=== PATIENT | female | born 1955 | race Caucasian/White ===

== ENCOUNTER → 2018-02-10 13:57 | Outpatient (CLI) | payer OTHER, SELFPAY ==
[2018-02-10 14:27] LABS: Hematocrit 41.7 % (36-46); Hemoglobin 14.3 g/dL (12.0-16.0); Mean Corpuscular HGB Conc 34.2 % (30-36); Mean Corpuscular Hemoglobin 28.8 PG (26-34); Mean Corpuscular Volume 84.1 fL (80-100); Platelet Count 313 X10^3/uL (150-400); Red Blood Cell Count 4.96 X10^6/uL (4.0-5.2); Red Cell Distribution Width 13.7 % (11.6-14.8); White Blood Cell Count 8.1 X10^3/uL (4.5-11.0)
[2018-02-10 15:06] LABS: Neutrophils Absolute Manual 3969 /uL (3000-5900); Total Cells Counted 100
[2018-02-12 13:43] LABS: Varicella IgG Antibody > 4000.00 Index (< 135.00)
[2018-02-12 13:54] LABS: HSV 1 IgM Screen Negative (Negative); HSV 2 IgM Screen Negative (Negative)
== END ==
PROVIDERS: PCP Family Medicine; Visit Provider Family Medicine
DX: B00.9 Herpesviral infection, unspecified (principal)
CPT/HCPCS: 36415; 85025; 86694; 86787

== ENCOUNTER → 2019-03-09 12:13 | Outpatient (CLI) | payer OTHER, SELFPAY ==
[2019-03-09 12:47] LABS: Hematocrit 41.2 % (36-46); Hemoglobin 13.8 g/dL (12.0-16.0); Mean Corpuscular HGB Conc 33.4 % (30-36); Mean Corpuscular Hemoglobin 28.5 PG (26-34); Mean Corpuscular Volume 85.4 fL (80-100); Platelet Count 320 X10^3/uL (150-400); Red Blood Cell Count 4.83 X10^6/uL (4.0-5.2); Red Cell Distribution Width 14.1 % (11.6-14.8); White Blood Cell Count 5.6 X10^3/uL (4.5-11.0)
[2019-03-09 13:02] LABS: Alanine Aminotransferase 42 IU/L (9-52); Albumin 4.3 g/dL (3.5-5.0); Albumin Globulin Ratio 1.4 (1.0-2.8); Alkaline Phosphatase 92 U/L (38-126); Aspartate Aminotransferase 39 IU/L (14-36); BUN Creatinine Ratio 14.4 (6-22); Bilirubin Total 0.6 mg/dL (0.2-1.3); Blood Urea Nitrogen 13 mg/dL (7-17); Carbon Dioxide 30 mmol/L (22-32); Chloride 100 mmol/L (98-107); Estimated Glomerular Filt Rate > 60.0 mL/min (>60); Globulin 3.1 g/dL (1.7-4.1); Glucose 88 mg/dL (80-110); HEMOLYSIS < 15 (0-50); Potassium 3.4 mmol/L (3.4-5.1); Sodium 140 mmol/L (137-145); Total Protein 7.4 g/dL (6.3-8.2)
[2019-03-09 13:47] LABS: TSH w/ Reflex to FT4 0.79 uIU/mL (0.47-4.68)
== END ==
PROVIDERS: PCP Family Medicine; Visit Provider Family Medicine
DX: E03.9 Hypothyroidism, unspecified (principal); I10 Essential (primary) hypertension
CPT/HCPCS: 36415; 80053; 84443; 85027

== ENCOUNTER → 2019-09-26 12:25 | Outpatient (CLI) | payer OTHER, SELFPAY | PROVIDERS: PCP Family Medicine; Visit Provider Family Medicine | DX: R30.0 Dysuria (principal) | CPT/HCPCS: 87077; 87086 ==

== ENCOUNTER → 2019-10-24 14:43 | Outpatient (CLI) | payer OTHER, SELFPAY ==
--- NOTE | 2019-10-24 | DI.US.S_ITS ---
PROCEDURE: US RENAL COMPLETE INDICATIONS: LEFT KIDNEY MASS TECHNIQUE: Real-time scanning was performed of the kidneys and bladder, with image documentation. COMPARISON: [facility], MR, L-SPINE WITHOUT CONTRAST, 05/19/2012, 18:23. Outside Facility, RG, CT ABDOMEN/PELVIS WITH CONTRAST, 07/02/2019, 14:16. FINDINGS: Kidneys: Kidneys are normal in size. Right kidney measures 10.4 cm long; left kidney measures 10.6 cm long. Right renal cortical thickness is 1.1 cm; left renal cortical thickness is 1.3 cm. Renal cortical echotexture is normal. No hydronephrosis or nephrolithiasis. No suspicious solid mass lesions are noted on the right but there is a solid appearing mass involving the left kidney cortex anterior in position at the middle third of the right kidney, measuring up to 3.5 x 2.0 by 3.3 cm. This mass was identified on prior CT scanning from [facility] 07/02/19. Bladder: Pre-void bladder volume is 293 mL. Post-void residual is 82 mL. Pre-void images demonstrate no intraluminal masses or stones. On pre-void images, bilateral ureteral jets are noted with color Doppler interrogation. (Of note, ureteral jets may not be detectable in up to 25% of cases due to insufficient differences in specific gravity between ureteral and bladder urine). Miscellaneous: No free pelvic fluid. IMPRESSION: 3.5 x 2.0 x 3.3 cm exophytic mass projecting from the middle third cortex of the left kidney, laterally. As noted, this was initially identified on CT scanning from mid June of last year, measured at that time as 3.2 x 1.7 cm. 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 Dictated by: Hugo Ralph M.D. on 10/24/2019 at 15:45 Approved by: Hugo Ralph M.D. on 10/24/2019 at 15:55
== END ==
PROVIDERS: PCP Family Medicine; Referring Provider Urology; Visit Provider Urology
DX: N28.89 Other specified disorders of kidney and ureter (principal)
CPT/HCPCS: 76770

== ENCOUNTER → 2019-11-21 12:52 | Outpatient (CLI) | payer OTHER, SELFPAY ==
[2019-11-21 16:11] LABS: BUN Creatinine Ratio 7.1 (6-22); Blood Urea Nitrogen 7 mg/dL (7-17); Calcium 8.2 mg/dL (8.4-10.2); Carbon Dioxide 29 mmol/L (22-32); Chloride 103 mmol/L (98-107); Estimated Glomerular Filt Rate 57.1 mL/min (>60); Glucose 91 mg/dL (80-110); HEMOLYSIS < 15 (0-50); Sodium 138 mmol/L (137-145)
== END ==
PROVIDERS: PCP Family Medicine; Referring Provider Family Medicine; Visit Provider Family Medicine
DX: N17.9 Acute kidney failure, unspecified (principal)
CPT/HCPCS: 36415; 80048

== ENCOUNTER 2019-11-23 17:24 | Emergency (ER) | payer OTHER, SELFPAY ==
[2019-11-23] VITALS (13 sets, daily range): BP systolic 127–162; BP diastolic 54–84; PULSE 90–110; RESP 14–30; TEMP 36.8–37.1; O2SAT 92–98; BMI 34.0
--- NOTE | 2019-11-23 17:26 | DI.RAD.S_ITS ---
PROCEDURE: XR CHEST 1V INDICATIONS: chest pain TECHNIQUE: One view of the chest was acquired. COMPARISON: Outside Facility, RG, CT ABDOMEN/PELVIS WITH CONTRAST, 07/02/2019, 14:16. [facility], CR, CHEST 2 VIEW, 04/01/2007, 15:46. FINDINGS: Surgical changes and devices: Amada cystectomy clips. Lungs and pleura: Low lung volumes. Lungs are clear. No pleural effusions or pneumothorax. Mediastinum: Mediastinal contours appear unchanged. Hiatal hernia. Heart size is normal. Bones and chest wall: No suspicious bony lesions. Overlying soft tissues appear unremarkable. IMPRESSION: Low lung volumes. No air space opacity identified. Consider 2 view repeat CXR if tolerated by the patient. Hiatal hernia. Dictated by: Hector Henriquez M.D. on 11/23/2019 at 18:05 Approved by: Hector Henriquez M.D. on 11/23/2019 at 18:07
[2019-11-23 17:45] LABS: Add Manual Diff / Slide Review NO; Basophils Absolute Auto 100 /uL (0-100); Basophils Percent Auto 1.4 % (0-2); Eosinophils Absolute Auto 100 /uL (0-450); Eosinophils Percent Auto 0.8 % (2-4); Hematocrit 30.7 % (36-46); Hemoglobin 10.2 g/dL (12.0-16.0); Lymphocytes Absolute Auto 1800 /uL (1100-4500); Mean Corpuscular HGB Conc 33.3 % (30-36); Mean Corpuscular Hemoglobin 28.3 PG (26-34); Mean Corpuscular Volume 85.1 fL (80-100); Monocytes Absolute Auto 800 /uL (0-900); Monocytes Percent Auto 7.8 % (3-14); Neutrophils Absolute Auto 7800 /uL (1500-7000); Platelet Count 684 X10^3/uL (150-400); Red Blood Cell Count 3.61 X10^6/uL (4.0-5.2); Red Cell Distribution Width 13.7 % (11.6-14.8); White Blood Cell Count 10.7 X10^3/uL (4.5-11.0)
[2019-11-23 17:56] LABS: INR 1.2 (0.9-1.3); Prothrombin Time 13.3 SECONDS (10.1-12.7)
[2019-11-23 17:59] LABS: PTT Partial Thromboplastin Tim 30 SECONDS (26.4-36.2)
[2019-11-23 18:00] LABS: Alanine Aminotransferase 15 IU/L (<35); Albumin 3.8 g/dL (3.5-5.0); Albumin Globulin Ratio 1.1 (1.0-2.8); Alkaline Phosphatase 88 U/L (38-126); Aspartate Aminotransferase 23 IU/L (14-36); BUN Creatinine Ratio 9.5 (6-22); Bilirubin Total 0.4 mg/dL (0.2-1.3); Blood Urea Nitrogen 11 mg/dL (7-17); Calcium 8.7 mg/dL (8.4-10.2); Carbon Dioxide 30 mmol/L (22-32); Chloride 102 mmol/L (98-107); Creatine Kinase 42 U/L (30-135); Globulin 3.6 g/dL (1.7-4.1); Glucose 103 mg/dL (80-110); HEMOLYSIS < 15 (0-50); Lipase 108 U/L (23-300); Potassium 3.7 mmol/L (3.4-5.1); Sodium 140 mmol/L (137-145); Total Protein 7.4 g/dL (6.3-8.2)
--- NOTE | 2019-11-23 18:00 | ED_ITS ---
HPI - Chest Pain General Chief Complaint: Chest Pain Stated Complaint: CHEST PAIN Time Seen by Provider: 11/23/19 17:35 Source: patient Mode of arrival: Wheelchair Limitations: no limitations History of Present Illness HPI narrative: 64-year-old female nonsmoker with history of hypertension, hypothyroid, recent hospitalization for urosepsis presents with a chief complaint of sudden onset left-sided chest pain with radiation to her back, neck and jaw that started earlier today. She states that it seems like it may be worse with deep breath or cough but denies any exertional change. She has no associated symptoms such as dizziness, weakness or lightheadedness. She has had no runny nose, sore throat or cough. MD complaint: chest pain Onset (ago): hour(s) Duration: constant Onset: during rest Pain location: left chest Severity: moderate Quality: sharp Pain radiation: back, neck and jaw/teeth Relieving factors: nothing Exacerbating factors: inspiration Treatments prior to arrival chest pain: none Related Data On Oral Contraceptives: No Previous Rx's Medication Instructions Recorded levothyroxine 75 mcg tablet 75 mcg PO DAILY #90 tab 04/03/19 losartan 100 1 tab PO QDAY #90 tab 05/05/19 mg-hydrochlorothiazide 25 mg tablet valacyclovir 1 gram tablet See Rx Instructions .ROUTE 09/27/19 .COMPLEX #90 tab cyclobenzaprine 10 mg tablet See Rx Instructions .ROUTE 09/28/19 .COMPLEX #30 tablet pregabalin 150 mg capsule See Rx Instructions .ROUTE 10/31/19 .COMPLEX #90 capsule zolpidem 10 mg tablet See Rx Instructions .ROUTE 10/31/19 .COMPLEX #30 tablet furosemide 40 mg tablet 40 mg PO DAILY #30 tab 11/21/19 potassium chloride 20 mEq 20 meq PO BID #60 tab 11/23/19 tablet,extended release Allergies Allergy/AdvReac Type Severity Reaction Status Date / Time morphine [MORPHINE] Allergy Severe ANAPHYLAXIS Verified 11/23/19 17:32 adhesive tape [ADHESIVE TAPE] Allergy Mild PAPER TAPE Verified 11/23/19 17:32 OK- RASH Sulfa (Sulfonamide Allergy Mild RASH/RED Verified 11/23/19 17:32 Antibiotics) FACE/MOUTH [SULFA (SULFONAMIDE BLISTERS ANTIBIOTICS)] topiramate [From TOPAMAX] Allergy Mild Verified 11/23/19 17:32 ondansetron [From Zofran] AdvReac Verified 11/23/19 23:10 Review of Systems Constitutional Constitutional: Denies chills, Denies fatigue, Denies fever(s), Denies frequent falls, Denies lethargy and Denies weakness Eyes Eyes: Denies change in vision, Denies eye discharge, Denies irritation and Denies loss of vision ENT Ears, Nose, Mouth, and Throat: Denies change in voice, Denies dizziness, Denies neck pain, Denies sore throat and Denies throat swelling Cardiovascular Cardiovascular: Reports chest pain, Denies irregular heart rhythm, Denies lightheadedness, Denies palpitations, Denies dyspnea, Denies dyspnea on exertion and Denies orthopnea Respiratory Respiratory: Denies cough, Denies dyspnea, Denies dyspnea on exertion and Denies wheezing Gastrointestinal Gastrointestinal: Denies abdominal pain, Denies change in bowel habits, Denies diarrhea, Denies nausea and Denies vomiting Genitourinary Genitourinary: Denies hematuria, Denies flank pain, Denies urinary incontinence and Denies urinary urgency Musculoskeletal Musculoskeletal: Denies back pain, Denies muscle weakness, Denies neck pain, Denies numbness and Denies tingling Integumentary/Breasts Skin/Breast: Denies pruritus, Denies erythema, Denies rash and Denies wounds Neurologic Neurologic: Denies behavioral changes, Denies confusion, Denies dizziness, Denies frequent falls, Denies loss of vision, Denies numbness, Denies tingling and Denies weakness Psychiatric Psychiatric: Denies anxiety, Denies behavioral changes, Denies confusion, Denies depression, Denies homicidal ideation and Denies suicidal ideation Endocrine Endocrine: Denies fatigue, Denies flushing and Denies palpitations Hematologic/Lymphatic Hematologic/Lymphatic: Denies easy bruising Allergic/Immunologic Allergic/Immunologic: Denies urticaria, Denies throat swelling and Denies wheezing Patient History Medical History Sepsis (Acute) Social History Smoking Status: Never smoker Smoking Status: Never smoker alcohol intake frequency: holidays/special occasions only Substance Use Type: does not use Exam Narrative Exam Narrative: GENERAL: [64] year old patient appears stated age. Well- nourished, well-developed patient, in mild distress. HEAD: Atraumatic. Normocephalic. EYES: Pupils equal round and reactive. Extraocular motions intact. No scleral icterus. No injection or drainage. ENT: Nose without bleeding, purulent drainage. Throat without erythema, tonsillar hypertrophy or exudate. Airway patent. NECK: Trachea midline. Non tender CARDIOVASCULAR: Regular rate and rhythm without murmurs, gallops, or rubs. RESPIRATORY: Clear to auscultation. Breath sounds equal bilaterally. No wheezes, rales, or rhonchi. GASTROINTESTINAL: Abdomen soft, non-tender, nondistended. EXTREMITIES: No edema or joint tenderness. BACK: Nontender without deformity or crepitance. No flank tenderness. NEURO: AOx3. SKIN: No rash or erythema of visible areas Initial Vital Signs Initial Vital Signs: Vital Signs Temperature 98.8 F 11/23/19 17:32 Pulse Rate 99 H 11/23/19 17:32 Respiratory Rate 14 11/23/19 17:32 Blood Pressure 161/84 H 11/23/19 17:32 Pulse Oximetry 98 11/23/19 17:32 Course Orders Ordered: ED Orders 11/23/19 22:58 Hemoglobin and Hematocrit Stat Discontinued Medications Nicardipine HCl 25 mg/ Sodium (Chloride) 250 mls @ 50 mls/hr IV TITRATE DULCE; Protocol Last Titration: 11/24/19 01:43 Dose: 5 mg/hr, 50 mls/hr Documented by: Titration: 11/23/19 23:24 Dose: 5 mg/hr, 50 mls/hr Documented by: Titration: 11/23/19 22:56 Dose: 7.5 mg/hr, 75 mls/hr Documented by: Admin: 11/23/19 22:26 Dose: 5 mg/hr, 50 mls/hr Documented by: DINA Lorazepam (Ativan) 0.5 mg IV NOW ONE Stop: 11/24/19 01:26 Last Admin: 11/24/19 01:31 Dose: 0.5 mg Documented by: DINA Metoclopramide HCl (Reglan) 10 mg IV NOW ONE Stop: 11/23/19 22:57 Last Admin: 11/23/19 23:04 Dose: 10 mg Documented by: DINA Octreotide Acetate (Sandostatin) 50 mcg IV NOW ONE Stop: 11/23/19 22:41 Last Admin: 11/23/19 22:52 Dose: 50 mcg Documented by: DINA Pantoprazole Sodium (Protonix) 40 mg IV NOW ONE Stop: 11/23/19 22:07 Last Admin: 11/23/19 22:27 Dose: 40 mg Documented by: DINA Reevaluation(s) Reevaluation #1: patient passes a small stool, dark and tarry. Heme + consistent with upper GI bleed Consultations Consultation #1: initial call after receipt of CT to Hepatology at /[facility] and Dr. Wills. NOt likely to need Hep, recommends discussion with Vascular second call to vascular lactation coordinator at [facility] (Bala). She has viewed images as well as discussed with their in house radiology and concern is for a vasculitis with need for further evaluation call to [facility] (Luis M) whom is happy to accept. No new requests. Vital Signs Vital signs: Vital Signs - 8 hr 11/23/19 21:00 11/23/19 21:30 11/23/19 22:00 Temperature Pulse Rate 90 90 95 H Respiratory Rate 17 20 16 Blood Pressure Blood Pressure [Left Arm] 143/73 H 161/72 H 159/74 H Pulse Oximetry 96 95 96 11/23/19 22:30 11/23/19 23:00 11/23/19 23:50 Temperature 98.3 F Pulse Rate 95 H 99 H 110 H Respiratory Rate 20 18 16 Blood Pressure Blood Pressure [Left Arm] 156/72 H 127/54 L 131/72 Pulse Oximetry 96 97 97 11/24/19 00:32 11/24/19 01:32 Temperature 98.3 F Pulse Rate 110 H 108 H Respiratory Rate 16 16 Blood Pressure 111/83 Blood Pressure [Left Arm] 124/69 Pulse Oximetry 97 97 MDM - Chest Pain Lab Data Result diagrams: 11/23/19 22:58 11/23/19 17:30 Labs: Lab Results 11/23/19 11/23/19 11/23/19 Range/Units 17:30 17:30 17:30 WBC 10.7 (4.5-11.0) X10^3/uL RBC 3.61 L (4.0-5.2) X10^6/uL Hgb 10.2 L (12.0-16.0) g/dL Hct 30.7 L (36-46) % MCV 85.1 (80-100) fL MCH 28.3 (26-34) PG MCHC 33.3 (30-36) % RDW 13.7 (11.6-14.8) % Plt Count 684 H (150-400) X10^3/uL Neut % (Auto) 73.0 (50-75) % Lymph % (Auto) 17.0 L (25-40) % [place] % (Auto) 7.8 (3-14) % Eos % (Auto) 0.8 L (2-4) % Baso % (Auto) 1.4 (0-2) % Neut # (Auto) 7800 H (5423-7936) /uL Lymph # (Auto) 1800 (9578-4722) /uL [place] # (Auto) 800 (0-900) /uL Eos # (Auto) 100 (0-450) /uL Baso # (Auto) 100 (0-100) /uL ESR (0-20) MM/HR PT 13.3 H (10.1-12.7) SECONDS INR 1.2 (0.9-1.3) APTT 30 (26.4-36.2) SECONDS Sodium 140 (137-145) mmol/L Potassium 3.7 (3.4-5.1) mmol/L Chloride 102 (98-107) mmol/L Carbon Dioxide 30 (22-32) mmol/L BUN 11 (7-17) mg/dL Creatinine 1.16 H (0.52-1.04) mg/dL Estimated GFR 47.0 L (>60) mL/min BUN/Creatinine Ratio 9.5 (6-22) Glucose 103 (80-110) mg/dL Calcium 8.7 (8.4-10.2) mg/dL Total Bilirubin 0.4 (0.2-1.3) mg/dL AST 23 (14-36) IU/L ALT 15 (<35) IU/L Alkaline Phosphatase 88 (38-126) U/L Total Creatine Kinase 42 (30-135) U/L CK-MB (CK-2) TNP CK-MB (CK-2) Rel Index TNP Troponin I < 0.012 (0.01-0.034) ng/mL C-Reactive Protein (<1.0) mg/dL Total Protein 7.4 (6.3-8.2) g/dL Albumin 3.8 (3.5-5.0) g/dL Globulin 3.6 (1.7-4.1) g/dL Albumin/Globulin Ratio 1.1 (1.0-2.8) Lipase 108 (23-300) U/L Urine RBC (0-5/HPF) Urine WBC (0-5/HPF) Ur Squamous Epith Cells (0-5/HPF) Ur Transition Epith Cell (0-5/HPF) Urine Bacteria (None) Ur Culture Indicated? COVID-19 PCR (Negative) 11/23/19 11/23/19 11/23/19 Range/Units 17:30 17:30 18:00 WBC (4.5-11.0) X10^3/uL RBC (4.0-5.2) X10^6/uL Hgb (12.0-16.0) g/dL Hct (36-46) % MCV (80-100) fL MCH (26-34) PG MCHC (30-36) % RDW (11.6-14.8) % Plt Count (150-400) X10^3/uL Neut % (Auto) (50-75) % Lymph % (Auto) (25-40) % [place] % (Auto) (3-14) % Eos % (Auto) (2-4) % Baso % (Auto) (0-2) % Neut # (Auto) (8634-1738) /uL Lymph # (Auto) (5987-2434) /uL [place] # (Auto) (0-900) /uL Eos # (Auto) (0-450) /uL Baso # (Auto) (0-100) /uL ESR 69 H (0-20) MM/HR PT (10.1-12.7) SECONDS INR (0.9-1.3) APTT (26.4-36.2) SECONDS Sodium (137-145) mmol/L Potassium (3.4-5.1) mmol/L Chloride (98-107) mmol/L Carbon Dioxide (22-32) mmol/L BUN (7-17) mg/dL Creatinine (0.52-1.04) mg/dL Estimated GFR (>60) mL/min BUN/Creatinine Ratio (6-22) Glucose (80-110) mg/dL Calcium (8.4-10.2) mg/dL Total Bilirubin (0.2-1.3) mg/dL AST (14-36) IU/L ALT (<35) IU/L Alkaline Phosphatase (38-126) U/L Total Creatine Kinase (30-135) U/L CK-MB (CK-2) CK-MB (CK-2) Rel Index Troponin I (0.01-0.034) ng/mL C-Reactive Protein 5.3 H (<1.0) mg/dL Total Protein (6.3-8.2) g/dL Albumin (3.5-5.0) g/dL Globulin (1.7-4.1) g/dL Albumin/Globulin Ratio (1.0-2.8) Lipase (23-300) U/L Urine RBC 0-1/hpf (0-5/HPF) Urine WBC 0-1/hpf (0-5/HPF) Ur Squamous Epith Cells 1-5 /hpf (0-5/HPF) Ur Transition Epith Cell 0-1/hpf (0-5/HPF) Urine Bacteria None seen (None) Ur Culture Indicated? Cult not indicated COVID-19 PCR (Negative) 11/23/19 11/23/19 Range/Units 18:50 22:58 WBC (4.5-11.0) X10^3/uL RBC (4.0-5.2) X10^6/uL Hgb 9.9 L (12.0-16.0) g/dL Hct 29.7 L (36-46) % MCV (80-100) fL MCH (26-34) PG MCHC (30-36) % RDW (11.6-14.8) % Plt Count (150-400) X10^3/uL Neut % (Auto) (50-75) % Lymph % (Auto) (25-40) % [place] % (Auto) (3-14) % Eos % (Auto) (2-4) % Baso % (Auto) (0-2) % Neut # (Auto) (2042-9469) /uL Lymph # (Auto) (1105-6098) /uL [place] # (Auto) (0-900) /uL Eos # (Auto) (0-450) /uL Baso # (Auto) (0-100) /uL ESR (0-20) MM/HR PT (10.1-12.7) SECONDS INR (0.9-1.3) APTT (26.4-36.2) SECONDS Sodium (137-145) mmol/L Potassium (3.4-5.1) mmol/L Chloride (98-107) mmol/L Carbon Dioxide (22-32) mmol/L BUN (7-17) mg/dL Creatinine (0.52-1.04) mg/dL Estimated GFR (>60) mL/min BUN/Creatinine Ratio (6-22) Glucose (80-110) mg/dL Calcium (8.4-10.2) mg/dL Total Bilirubin (0.2-1.3) mg/dL AST (14-36) IU/L ALT (<35) IU/L Alkaline Phosphatase (38-126) U/L Total Creatine Kinase (30-135) U/L CK-MB (CK-2) CK-MB (CK-2) Rel Index Troponin I (0.01-0.034) ng/mL C-Reactive Protein (<1.0) mg/dL Total Protein (6.3-8.2) g/dL Albumin (3.5-5.0) g/dL Globulin (1.7-4.1) g/dL Albumin/Globulin Ratio (1.0-2.8) Lipase (23-300) U/L Urine RBC (0-5/HPF) Urine WBC (0-5/HPF) Ur Squamous Epith Cells (0-5/HPF) Ur Transition Epith Cell (0-5/HPF) Urine Bacteria (None) Ur Culture Indicated? COVID-19 PCR Negative (Negative) Point of Care Testing Stool Occult Blood Positive Urine Dip Bedside Urine Bilirubin - Negative Bedside Urine Ketone - Negative Urine Specific [place] 1.010 Bedside Urine Occult Blood - Negative Bedside Urine pH 7.5 Bedside Urine Protein - Negative Bedside Urine Urobilinogen - Negative Bedside Urine Nitrite - Negative Bedside Urine Leukocytes - Negative Esterase Imaging Data CT scan - abdomen/pelvis: Radiologist's Impression: Chart Viewer Diagnostics DATE TYPE STATUS AUTHOR Jose J 11/23/19 18:17 Call,Hector 11/23/19 17:26 Call,Hector 11/14/19 09:46 [facility], CT Abdomen/Pelvis 11/13/19 09:23 xr chest 1 view 11/11/19 09:22 xr chest 1 view 11/10/19 12:00 [facility], Chest XR 11/10/19 12:00 [facility], CT Chest 11/10/19 12:00 [facility], CT Head 11/10/19 12:00 [facility], CT Cervical Spine 10/24/19 00:00 RamoLucinda Ovalle 64, F0 1955 [facility], [facility] ED R01 154.94cm 81.647kg BMI: 34.0kg/m? Chest Pain Search Chart No Data to Display ANAPHYLAXIS PAPER TAPE OK- RASH RASH/RED FACE/MOUTH BLISTERS ONSET 10/05/11 10/05/11 10/05/11 11/09/17 Today 23:50 Lucinda Cortez 64 F 1955 [place] [address] CT Scan Report Signed Patient: Lucinda Cortez MMR#: [id number] : 5Acct:[id number] Age/Sex: 64 / FDate of Service: 11/23/19 Loc: ED Accession Number: [id number] Procedure: CT angio chest abdomen pelvis Ordering Provider: Ori Francis D.O. PROCEDURE: CT ANGIO CHEST ABDOMEN PELVIS INDICATIONS: tearing chest pain, radiation to back and neck TECHNIQUE: Precontrast 5 mm thick sections acquired from the lung apices to the iliac crests. After the administration of intravenous contrast, 2.5 mm thick sections again acquired from the lung apices to the iliac crests. Maximum intensity projection (MIP) oblique sagittal and coronal reformats were then acquired. For radiation dose reduction, the following was used: automated exposure control. COMPARISON: None. FINDINGS: Image quality: Excellent. Vasculature: No acute aortic syndrome. No aortic dissection. Medialization of the bilateral common carotid bruits. Left common prior artery originates off of the brachycephalic artery, variant. No central pulmonary embolism. No abdominal aortic aneurysm. No abdominal aortic dissection. There is new beaded irregularity of the common hepatic artery with severe stenosis, (). There is stranding surrounding this segment. Central intrahepatic renal arteries appear patent. Opacification of the portal vein appears within normal limits accounting for contrast bolus timing. The portal vein evaluation is limited. Renal arteries appear normal. Celiac, SMA, MAY are normal in appearance. CHEST: Lungs and pleura: Bibasilar compressive atelectasis. Punctate pulmonary nodule in the right lower lobe superior segment, (625). Small bilateral pleural effusions. No pneumothorax. pneumothorax. Central and peripheral airways are patent and normal in caliber. Mediastinum: Heart size is normal. No pericardial effusion. No mediastinal or hilar adenopathy by size criteria. Central pulmonary arteries are normal in size. Esophagus is normal in caliber. Moderate-sized paraesophageal hernia unchanged. Bones and chest wall: No axillary adenopathy by size criteria. Cyst in the right breast measuring a 2.3 cm, (5/50). Thyroid gland is unremarkable. No suspicious bony lesions. No vertebral body compression fractures. ABDOMEN: Solid organs: Liver is normal in size and enhancement. Gallbladder is surgically absent. Biliary system is non dilated. Pancreas enhances normally. Spleen is normal in size and enhancement. No adrenal nodules. Both kidneys are normal in size. No hydronephrosis. The left mid kidney enhancing mass measuring 3.6 x 2.7 cm, (5/109), previously 3.1 x 2.5 cm. Peritoneum and bowel: No free fluid or air. Bowel loops are normal in caliber and wall thickness. Nodes and vessels: No retroperitoneal or mesenteric adenopathy by size criteria. Inferior vena cava is normal in morphology. Miscellaneous: Small fat-containing left periumbilical hernia. PELVIS: Genitourinary: Bladder wall thickness is normal. Uterus is surgically absent. Miscellaneous: No inguinal hernias or adenopathy. No ventral hernias. Bones: No suspicious bony lesions. No vertebral body compression fractures. Right SI joint and screw fixation. IMPRESSION: 1. New abnormal beaded appearance and stenosis with surrounding fat stranding about the common hepatic artery. Primary diagnostic considerations include fibromuscular dysplasia and vasculitis or mycotic aneurysm. 2. No aortic dissection. 3. Small bilateral pleural effusions. 4. Left renal mass measuring 3.6 cm is slightly increased in size and most compatible with a renal cell carcinoma. 5. Cyst in the left breast. Recommend correlation with prior her breast imaging. Comment: Findings were discussed with Ori Francis at the time of dictation. Dictated by: Hector Henriquez M.D. on 11/23/2019 at 19:30 Approved by: Hector Henriquez M.D. on 11/23/2019 at 19:54 Critical Care Time Critical Care Time Critical Care Time: Yes Total Critical Care Time: 45 Attestation: The high probability of a clinically significant, sudden or life threatening deterioration of the [CV] system(s) required my full and direct attention, intervention and personal management. The aggregate critical care time was [45] minutes. This time is in addition to time spent performing reported procedures but includes the following: [x] Data Review and interpretation [x] Patient assessment and monitoring of vital signs x Documentation [x] Medication orders and management Discharge Plan Departure Patient Disposition: [facility] Clinical Impression: Hepatic artery stenosis, Vasculitis, Acute upper gastrointestinal bleeding Discharge Date/Time: 11/24/19 01:32 Prescriptions: No Action furosemide 40 mg tablet 40 mg PO DAILY Qty: 30 RF: 0 levothyroxine 75 mcg tablet 75 mcg PO DAILY Qty: 90 RF: 3 losartan-hydrochlorothiazide [Hyzaar] 100-25 mg tablet 1 tab PO QDAY Qty: 90 RF: 3 valacyclovir 1 gram tablet See Rx Instructions .ROUTE .COMPLEX Qty: 90 RF: 3 cyclobenzaprine 10 mg tablet See Rx Instructions .ROUTE .COMPLEX Qty: 30 RF: 1 zolpidem 10 mg tablet See Rx Instructions .ROUTE .COMPLEX Qty: 30 RF: 0 pregabalin [Lyrica] 150 mg capsule See Rx Instructions .ROUTE .COMPLEX Qty: 90 RF: 3 potassium chloride 20 mEq tablet extended release 20 meq PO BID Qty: 60 RF: 1 Referrals: Kam Farr MD [Primary Care Provider] -
[2019-11-23 18:12] LABS: Troponin I < 0.012 ng/mL (0.01-0.034)
[2019-11-23 18:13] LABS: Bacteria Urine None Seen
--- NOTE | 2019-11-23 18:17 | DI.CT.S_ITS ---
PROCEDURE: CT ANGIO CHEST ABDOMEN PELVIS INDICATIONS: tearing chest pain, radiation to back and neck TECHNIQUE: Precontrast 5 mm thick sections acquired from the lung apices to the iliac crests. After the administration of intravenous contrast, 2.5 mm thick sections again acquired from the lung apices to the iliac crests. Maximum intensity projection (MIP) oblique sagittal and coronal reformats were then acquired. For radiation dose reduction, the following was used: automated exposure control. COMPARISON: None. FINDINGS: Image quality: Excellent. Vasculature: No acute aortic syndrome. No aortic dissection. Medialization of the bilateral common carotid bruits. Left common prior artery originates off of the brachycephalic artery, variant. No central pulmonary embolism. No abdominal aortic aneurysm. No abdominal aortic dissection. There is new beaded irregularity of the common hepatic artery with severe stenosis, (). There is stranding surrounding this segment. Central intrahepatic renal arteries appear patent. Opacification of the portal vein appears within normal limits accounting for contrast bolus timing. The portal vein evaluation is limited. Renal arteries appear normal. Celiac, SMA, MAY are normal in appearance. CHEST: Lungs and pleura: Bibasilar compressive atelectasis. Punctate pulmonary nodule in the right lower lobe superior segment, (625). Small bilateral pleural effusions. No pneumothorax. pneumothorax. Central and peripheral airways are patent and normal in caliber. Mediastinum: Heart size is normal. No pericardial effusion. No mediastinal or hilar adenopathy by size criteria. Central pulmonary arteries are normal in size. Esophagus is normal in caliber. Moderate-sized paraesophageal hernia unchanged. Bones and chest wall: No axillary adenopathy by size criteria. Cyst in the right breast measuring a 2.3 cm, (5/50). Thyroid gland is unremarkable. No suspicious bony lesions. No vertebral body compression fractures. ABDOMEN: Solid organs: Liver is normal in size and enhancement. Gallbladder is surgically absent. Biliary system is non dilated. Pancreas enhances normally. Spleen is normal in size and enhancement. No adrenal nodules. Both kidneys are normal in size. No hydronephrosis. The left mid kidney enhancing mass measuring 3.6 x 2.7 cm, (5/109), previously 3.1 x 2.5 cm. Peritoneum and bowel: No free fluid or air. Bowel loops are normal in caliber and wall thickness. Nodes and vessels: No retroperitoneal or mesenteric adenopathy by size criteria. Inferior vena cava is normal in morphology. Miscellaneous: Small fat-containing left periumbilical hernia. PELVIS: Genitourinary: Bladder wall thickness is normal. Uterus is surgically absent. Miscellaneous: No inguinal hernias or adenopathy. No ventral hernias. Bones: No suspicious bony lesions. No vertebral body compression fractures. Right SI joint and screw fixation. IMPRESSION: 1. New abnormal beaded appearance and stenosis with surrounding fat stranding about the common hepatic artery. Primary diagnostic considerations include fibromuscular dysplasia and vasculitis or mycotic aneurysm. 2. No aortic dissection. 3. Small bilateral pleural effusions. 4. Left renal mass measuring 3.6 cm is slightly increased in size and most compatible with a renal cell carcinoma. 5. Cyst in the left breast. Recommend correlation with prior her breast imaging. Comment: Findings were discussed with Ori Francis at the time of dictation. Dictated by: Hector Henriquez M.D. on 11/23/2019 at 19:30 Approved by: Hector Henriquez M.D. on 11/23/2019 at 19:54
[2019-11-23 18:23] LABS: RBC Urine 0-1/HPF (0-5/HPF); Squamous Epithelial Cell Urine 1-5 /HPF (0-5/HPF); Transitional Epi Cells Urine 0-1/HPF (0-5/HPF); WBC Urine 0-1/HPF (0-5/HPF)
[2019-11-23 18:24] LABS: Culture Indicated Urine Cult Not Indicated
[2019-11-23 21:07] LABS: C-Reactive Protein Quant 5.3 mg/dL (<1.0)
[2019-11-23 21:24] LABS: Erythrocyte Sedimentation Rate 69 MM/HR (0-20)
[2019-11-23] MEDS: NICARDIPINE 25 MG in SODIUM CHLORIDE 0.9% 240 ML 50 ML IV (22:26)
[2019-11-23] MEDS: PANTOPRAZOLE 40 MG VIAL IV (22:27)
[2019-11-23] MEDS: OCTREOTIDE 100 MCG/ML VIAL 50 MCG IV (22:52)
--- NOTE | 2019-11-23 23:03 | PC.NURSE ---
Pt nauseated. emesis bag given. verbal order for reglan 10mg. pt desat to 86 RA with adequate pleth. placed on 2L NC with improvement to 97%. aware
[2019-11-23] MEDS: METOCLOPRAMIDE 10 MG/2 ML INJ IV (23:04)
[2019-11-23 23:07] LABS: Hematocrit 29.7 % (36-46); Hemoglobin 9.9 g/dL (12.0-16.0)
[2019-11-24 00:17] LABS: COVID19 -Nasal RAPID Negative (Negative)
[2019-11-24 00:32] VITALS: BP 124/69; PULSE 110; RESP 16; O2SAT 97
[2019-11-24] MEDS: LORazepam 2 MG/ML INJ 0.5 MG IV (01:31)
[2019-11-24 01:32] VITALS: BP 111/83; PULSE 108; RESP 16; TEMP 36.8; O2SAT 97
== END 2019-11-24 01:32 | disposition short-term general hospital (02) ==
PROVIDERS: Emergency Medicine; Emergency Provider Emergency Medicine; PCP Family Medicine
DX: I77.1 Stricture of artery (principal); I77.6 Arteritis, unspecified; K92.2 Gastrointestinal hemorrhage, unspecified; I10 Essential (primary) hypertension; E03.9 Hypothyroidism, unspecified
CPT/HCPCS: 36415; 71045; 71275; 74174; 80053; 81003; 81015; 82272; 82550; 83690; 84484; 85014; 85018; 85025; 85610; 85651; 85730; 86140; 87635; 93005; 96365; 96366; 96375; 99285; 99291; C9113; J2060; J2354; J2765

== ENCOUNTER → 2019-12-05 10:44 | Outpatient (CLI) | payer OTHER, SELFPAY ==
[2019-12-05 12:10] LABS: BUN Creatinine Ratio 11.5 (6-22); Blood Urea Nitrogen 12 mg/dL (7-17); Calcium 9.1 mg/dL (8.4-10.2); Carbon Dioxide 26 mmol/L (22-32); Chloride 104 mmol/L (98-107); Estimated Glomerular Filt Rate 53.3 mL/min (>60); Glucose 96 mg/dL (80-110); HEMOLYSIS < 15 (0-50); Potassium 3.7 mmol/L (3.4-5.1); Sodium 140 mmol/L (137-145)
[2019-12-05 12:30] LABS: Appearance Urine UA CLEAR; Bilirubin Urine UA NEGATIVE (NEGATIVE); Color Urine UA YELLOW; Glucose Urine UA NEGATIVE (Negative); Ketones Urine UA NEGATIVE (NEGATIVE); Leukocyte Esterase Urine UA 1+ (NEGATIVE); Nitrite Urine UA NEGATIVE (Negative); Occult Blood Urine UA TRACE-LYSED (Negative); Protein Urine UA NEGATIVE (Negative); Specific Gravity Urine UA <=1.005 (1.000-1.035); Urobilinogen Urine UA 0.2 E.U./dL (0.2)
[2019-12-05 12:32] LABS: pH Urine UA 5.5 (4.5-8.0)
[2019-12-05 12:34] LABS: RBC Urine None Seen (0-5/HPF)
[2019-12-05 12:54] LABS: Bacteria Urine Occasional (0-1); Squamous Epithelial Cell Urine 0-1 /HPF (0-5/HPF); WBC Urine 10-30/HPF (0-5/HPF)
[2019-12-05 12:55] LABS: Culture Indicated Urine Specimen Cultured
== END ==
PROVIDERS: PCP Family Medicine; Referring Provider Family Medicine; Visit Provider Family Medicine
DX: R30.0 Dysuria (principal); E87.6 Hypokalemia
CPT/HCPCS: 36415; 80048; 81003; 81015; 87086

== ENCOUNTER → 2019-12-12 16:05 | Outpatient (CLI) | payer OTHER, SELFPAY ==
[2019-12-12 16:33] LABS: Appearance Urine UA CLEAR; Bilirubin Urine UA NEGATIVE (NEGATIVE); Color Urine UA YELLOW; Glucose Urine UA NEGATIVE (Negative); Ketones Urine UA NEGATIVE (NEGATIVE); Leukocyte Esterase Urine UA 2+ (NEGATIVE); Nitrite Urine UA NEGATIVE (Negative); Occult Blood Urine UA NEGATIVE (Negative); Protein Urine UA NEGATIVE (Negative); Specific Gravity Urine UA <=1.005 (1.000-1.035); Urobilinogen Urine UA 0.2 E.U./dL (0.2)
[2019-12-12 16:34] LABS: Bacteria Urine None Seen; RBC Urine None Seen (0-5/HPF); pH Urine UA 5.5 (4.5-8.0)
[2019-12-12 16:43] LABS: Culture Indicated Urine Cult Not Indicated; Squamous Epithelial Cell Urine 10-30 /HPF (0-5/HPF); WBC Urine 5-10/HPF (0-5/HPF)
== END ==
PROVIDERS: PCP Family Medicine; Referring Provider Family Medicine; Visit Provider Family Medicine
DX: R30.0 Dysuria (principal)
CPT/HCPCS: 81003; 81015

== ENCOUNTER → 2019-12-14 11:32 | Outpatient (CLI) | payer OTHER, SELFPAY ==
--- NOTE | 2019-12-14 11:33 | DI.CT.S_ITS ---
PROCEDURE: CT ANGIO ABDOMEN PELVIS INDICATIONS: hepatic artery segmental stenosis TECHNIQUE: After the administration of intravenous contrast, 2.5 mm sections acquired from the diaphragm to the iliac crests. 10 mm maximum intensity projection (MIP) coronal and sagittal reformats were then performed. For radiation dose reduction, the following was used: automated exposure control. COMPARISON: [facility], CT, CT ANGIO CHEST ABDOMEN PELVIS, 11/23/2019, 18:17. [facility], US, US RENAL COMPLETE, 10/24/2019, 14:52. Outside Facility, RG, CT ABDOMEN/PELVIS WITH CONTRAST, 07/02/2019, 14:16. FINDINGS: Image quality: Excellent. Extravascular tissues: Lung bases are clear. Heart size is normal. Liver is normal in size and enhancement. Gallbladder has been previously resected. Biliary system is non dilated. Pancreas enhances normally. Spleen is normal in size and enhancement. No adrenal nodules. Kidneys are normal in size and enhancement, without hydronephrosis. A previously identified exophytic hypervascular left mid renal cortical mass is again noted, projecting from the lateral border of the renal cortex and measuring up to 3.3 x 2.3 cm. Non-opacified bowel loops demonstrate normal wall thickness and caliber. No free fluid or air. No retroperitoneal or mesenteric adenopathy. No ventral hernias. No suspicious bony abnormalities. No vertebral body compression fractures. Abdominal aorta: Normal in caliber Mesenteric arteries: The superior and inferior mesenteric arteries appear normal. The celiac axis origin appears normal, and the hepatic arterial abnormality projecting rightward appears to have worsened. 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 Renal arteries: Normal in appearance. IMPRESSION: Relatively short term interval enlargement of an arterial vascular abnormalities centered on the proximal hepatic artery just beyond its origin from the celiac axis. 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 It is unclear whether this would represent a manifestation of infection, or vasculitis. Note is made of the absence of any abnormalities within the liver parenchyma itself. Near term vascular surgical consultation is recommended. Consultation with interventional radiology for consideration of placement of a stent through this area is recommended. Previously identified malignant appearing mass projecting laterally from the left renal cortex middle third is again noted, without appreciable growth over the recent prior CT scans. Dictated by: Hugo Ralph M.D. on 12/14/2019 at 13:02 Approved by: Hugo Ralph M.D. on 12/14/2019 at 13:12
== END ==
PROVIDERS: PCP Family Medicine; Referring Provider Family Medicine; Visit Provider Family Medicine
DX: I77.1 Stricture of artery (principal); I77.89 Other specified disorders of arteries and arterioles; N28.89 Other specified disorders of kidney and ureter; Z90.49 Acquired absence of other specified parts of digestive tract
CPT/HCPCS: 74174; Q9967

== ENCOUNTER 2019-12-15 00:34 | Emergency (ER) | payer OTHER, SELFPAY ==
[2019-12-15 00:44] VITALS: BP 152/72; PULSE 104; RESP 18; TEMP 37.2; O2SAT 98
--- NOTE | 2019-12-15 00:47 | ED.DIZZY ---
HPI - Dizziness General Chief Complaint: Dizziness Stated Complaint: feeling faint Time Seen by Provider: 12/15/19 00:41 Source: patient Mode of arrival: Ambulatory Limitations: no limitations History of Present Illness HPI Narrative: The patient presents with right mid abdominal pain, radiating to her chest. She has no palpitations or dyspnea. She developed dizziness with onset of symptoms. She has no fever chills. She was seen here 3 weeks ago, [address] chest revealed changes in the hepatic artery suggestive of vasculitis versus aneurysm formation. At that time she was transferred to [facility] in [place], where she was evaluated on multiple services. Concerns for vasculitis versus aneurysm formation. She underwent a PET scan, to evaluate for systemic vasculitis, no evidence of vasculitis was found. She also evaluated that time by EGD due to anemia. No evidence of bleeding was found. She was thought to have 8 iron deficiency anemia. She is taking iron supplements now. She has done well since discharge from [facility]. Yesterday she had a follow-up CT of the abdomen. 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 3 weeks ago was also realized that she had a hepatic mass, suggestive cancer. She is supposed to follow-up with surgery, Urology, and rheumatology. Symptoms have declined upon arrival. It is noted she was hospitalized with sepsis of urinary origin prior to evaluation here 3 weeks ago. Related Data Previous Rx's Medication Instructions Recorded levothyroxine 75 mcg tablet 75 mcg PO DAILY #90 tab 04/03/19 losartan 100 1 tab PO QDAY #90 tab 05/05/19 mg-hydrochlorothiazide 25 mg tablet valacyclovir 1 gram tablet See Rx Instructions .ROUTE 09/27/19 .COMPLEX #90 tab pregabalin 150 mg capsule See Rx Instructions .ROUTE 10/31/19 .COMPLEX #90 capsule furosemide 40 mg tablet 40 mg PO DAILY #30 tab 11/21/19 potassium chloride 20 mEq 20 meq PO BID #60 tab 11/23/19 tablet,extended release ferrous sulfate 324 mg (65 mg 324 mg PO DAILY #30 tab 12/05/19 iron) tablet,delayed release pantoprazole 40 mg tablet,delayed 40 mg PO DAILY #60 tab 12/05/19 release cyclobenzaprine 10 mg tablet See Rx Instructions .ROUTE 12/14/19 .COMPLEX #30 tablet zolpidem 10 mg tablet See Rx Instructions .ROUTE 12/14/19 .COMPLEX #30 tablet Allergies Allergy/AdvReac Type Severity Reaction Status Date / Time morphine [MORPHINE] Allergy Severe ANAPHYLAXIS Verified 12/05/19 10:00 adhesive tape [ADHESIVE TAPE] Allergy Mild PAPER TAPE Verified 12/05/19 10:00 OK- RASH Sulfa (Sulfonamide Allergy Mild RASH/RED Verified 12/05/19 10:00 Antibiotics) FACE/MOUTH [SULFA (SULFONAMIDE BLISTERS ANTIBIOTICS)] topiramate [From TOPAMAX] Allergy Mild Verified 12/05/19 10:00 ciprofloxacin Allergy Unknown Verified 12/05/19 10:05 ondansetron [From Zofran] AdvReac Verified 12/05/19 10:00 Review of Systems Review of Systems ROS Unobtainable: All systems reviewed & are unremarkable except as noted in HPI and below Constitutional Constitutional: Denies chills, Denies fever(s), Denies lethargy and Denies weakness Comments: No recent illness. Eyes Eyes: Denies change in vision ENT Comments: No complaints Cardiovascular Cardiovascular: Reports chest pain and Denies dyspnea Respiratory Respiratory: Denies cough and Denies dyspnea Gastrointestinal Comments: Abdominal pain as noted in HPI. Nausea without emesis. Genitourinary Genitourinary: Denies dysuria Musculoskeletal Musculoskeletal: Denies back pain and Denies numbness Integumentary/Breasts Skin/Breast: Denies erythema, Denies rash and Denies wounds Neurologic Neurologic: Denies confusion, Denies numbness and Denies weakness Psychiatric Psychiatric: Denies anxiety, Denies confusion and Denies depression Patient History Medical History (Updated 12/15/19 @ 06:22 by Jaya Batista MD) Iron deficiency anemia (Acute) Renal mass (Acute) Sepsis (Acute) Social History Smoking Status: Never smoker Smoking Status: Never smoker alcohol intake frequency: holidays/special occasions only Substance Use Type: does not use Exam Initial Vital Signs Initial Vital Signs: Vital Signs Temperature 99 F 12/15/19 00:44 Pulse Rate 104 H 12/15/19 00:44 Respiratory Rate 18 12/15/19 00:44 Blood Pressure 152/72 H 12/15/19 00:44 Pulse Oximetry 98 12/15/19 00:44 Const General: cooperative and well developed Nutritional Appearance: well nourished [facility] Head: normocephalic and atraumatic Face and sinus: no sinus tenderness Mouth: oral mucosae normal Teeth and gingiva: dentition normal Throat: tonsils normal and uvula midline Neck Neck: full ROM and No tender Resp Effort & Inspection: normal respiratory effort and able to speak in complete sentences Auscultation: clear to auscultation bilaterally, no rales, no rhonchi and no wheezes Cardio Rate: regular rate Rhythm: regular rhythm Heart Sounds: S1 normal, S2 normal, no click, no gallops, no murmurs and no rubs Pulses: normal peripheral pulses GI Other: Right mid abdominal tenderness. No distention. No guarding rebound. Normal bowel sounds. Back/Spine/Pelvis Back: No back tenderness and No CVA tenderness Skin General: no rashes or lesions noted, No jaundice and No petechiae Neuro General: alert, oriented x3, gait normal and no focal motor deficits Speech: speech normal Extrem General: no clubbing, cyanosis or edema Psych Appearance: grossly normal and well kempt Course Course Course Narrative: During her stay in the ER, her right flank pain intensified. Initial nausea had been resolved with Zofran. I gave Dilaudid for the pain, she felt much better. Ultrasound of the liver was obtained, the ultrasound was limited. There is a fatty liver. The portion of renal artery that was visualized was normal. The CT from earlier showed the changes at the distal portion of the artery. There is no free fluid. I discussed the case with vascular surgery, Dr. Saenz, with [facility]. Her CT from earlier had been electronically for to Dr. Saenz for review. He initially contemplated that embolization should be considered. He consult with with his colleague with invasive Radiology, both felt any risk of the procedure contained significant risks. The patient's post follow-up with Rheumatology, as well as General surgery and Neurology for treatment of a ventral hernia as well as the previously identified renal mass. I advised her to place a call to follow-up with rheumatology. I advised her to return or follow-up at the [facility] if symptoms escalate. Orders Ordered: ED Orders 12/15/19 EKG-12 Lead Stat 12/15/19 01:00 Complete Blood Count AUTO DIFF Stat Comprehensive Metabolic Panel Stat Lipase Stat Prothrombin Time INR Stat Troponin & CK Cardiac Panel Stat 12/15/19 02:10 Urine Culture Stat Urine Microscopic Stat 12/15/19 03:39 US abdomen limited Stat Discontinued Medications Diphenhydramine HCl (Benadryl) 25 mg IV NOW ONE Stop: 12/15/19 00:57 Last Admin: 12/15/19 01:11 Dose: 25 mg Documented by: JOSIANE Hydromorphone HCl (Dilaudid) 1 mg IV NOW ONE Stop: 12/15/19 03:47 Last Admin: 12/15/19 03:51 Dose: 1 mg Documented by: CHIRAG Sodium Chloride (Normal Saline 0.9%) 1,000 mls @ 150 mls/hr IV CONT DULCE Last Admin: 12/15/19 01:11 Dose: 150 mls/hr Documented by: JOSIANE Metoclopramide HCl (Reglan) 10 mg IV NOW ONE Stop: 12/15/19 00:57 Last Admin: 12/15/19 01:11 Dose: 10 mg Documented by: JOSIANE Vital Signs Vital signs: Vital Signs - 8 hr 12/15/19 00:44 12/15/19 00:49 12/15/19 01:38 Temperature 99 F Pulse Rate 104 H 103 H 96 H Respiratory Rate 18 16 18 Blood Pressure 152/72 H Blood Pressure [Left Arm] 144/73 H 137/68 Pulse Oximetry 98 98 98 12/15/19 03:02 12/15/19 03:57 12/15/19 05:19 Temperature Pulse Rate 96 H 90 80 Respiratory Rate 20 18 16 Blood Pressure Blood Pressure [Left Arm] 163/76 H 152/74 H 129/65 Pulse Oximetry 95 97 95 MDM - Dizziness Lab Data Result diagrams: 12/15/19 01:00 12/15/19 01:00 Labs: Lab Results 12/15/19 12/15/19 12/15/19 Range/Units 01:00 01:00 01:00 WBC 9.3 (4.5-11.0) X10^3/uL RBC 3.90 L (4.0-5.2) X10^6/uL Hgb 10.6 L (12.0-16.0) g/dL Hct 32.1 L (36-46) % MCV 82.1 (80-100) fL MCH 27.1 (26-34) PG MCHC 32.9 (30-36) % RDW 14.2 (11.6-14.8) % Plt Count 402 H (150-400) X10^3/uL Neut % (Auto) 62.3 (50-75) % Lymph % (Auto) 24.4 L (25-40) % [place] % (Auto) 8.0 (3-14) % Eos % (Auto) 3.7 (2-4) % Baso % (Auto) 1.6 (0-2) % Neut # (Auto) 5800 (1184-6926) /uL Lymph # (Auto) 2300 (8105-4293) /uL [place] # (Auto) 700 (0-900) /uL Eos # (Auto) 300 (0-450) /uL Baso # (Auto) 200 H (0-100) /uL PT 12.0 (10.1-12.7) SECONDS INR 1.0 (0.9-1.3) Sodium 139 (137-145) mmol/L Potassium 3.9 (3.4-5.1) mmol/L Chloride 105 (98-107) mmol/L Carbon Dioxide 26 (22-32) mmol/L BUN 11 (7-17) mg/dL Creatinine 0.86 (0.52-1.04) mg/dL Estimated GFR > 60.0 (>60) mL/min BUN/Creatinine Ratio 12.8 (6-22) Glucose 129 H (80-110) mg/dL Calcium 9.1 (8.4-10.2) mg/dL Total Bilirubin 0.3 (0.2-1.3) mg/dL AST 29 (14-36) IU/L ALT 20 (<35) IU/L Alkaline Phosphatase 108 (38-126) U/L Total Creatine Kinase (30-135) U/L CK-MB (CK-2) CK-MB (CK-2) Rel Index Troponin I (0.01-0.034) ng/mL Total Protein 7.6 (6.3-8.2) g/dL Albumin 4.0 (3.5-5.0) g/dL Globulin 3.6 (1.7-4.1) g/dL Albumin/Globulin Ratio 1.1 (1.0-2.8) Lipase 114 (23-300) U/L Urine RBC (0-5/HPF) Urine WBC (0-5/HPF) Ur Squamous Epith Cells (0-5/HPF) Amorphous Sediment Urine Bacteria (None) Ur Culture Indicated? 12/15/19 12/15/19 Range/Units 01:00 02:10 WBC (4.5-11.0) X10^3/uL RBC (4.0-5.2) X10^6/uL Hgb (12.0-16.0) g/dL Hct (36-46) % MCV (80-100) fL MCH (26-34) PG MCHC (30-36) % RDW (11.6-14.8) % Plt Count (150-400) X10^3/uL Neut % (Auto) (50-75) % Lymph % (Auto) (25-40) % [place] % (Auto) (3-14) % Eos % (Auto) (2-4) % Baso % (Auto) (0-2) % Neut # (Auto) (2623-2816) /uL Lymph # (Auto) (7126-1443) /uL [place] # (Auto) (0-900) /uL Eos # (Auto) (0-450) /uL Baso # (Auto) (0-100) /uL PT (10.1-12.7) SECONDS INR (0.9-1.3) Sodium (137-145) mmol/L Potassium (3.4-5.1) mmol/L Chloride (98-107) mmol/L Carbon Dioxide (22-32) mmol/L BUN (7-17) mg/dL Creatinine (0.52-1.04) mg/dL Estimated GFR (>60) mL/min BUN/Creatinine Ratio (6-22) Glucose (80-110) mg/dL Calcium (8.4-10.2) mg/dL Total Bilirubin (0.2-1.3) mg/dL AST (14-36) IU/L ALT (<35) IU/L Alkaline Phosphatase (38-126) U/L Total Creatine Kinase 37 (30-135) U/L CK-MB (CK-2) TNP CK-MB (CK-2) Rel Index TNP Troponin I < 0.012 (0.01-0.034) ng/mL Total Protein (6.3-8.2) g/dL Albumin (3.5-5.0) g/dL Globulin (1.7-4.1) g/dL Albumin/Globulin Ratio (1.0-2.8) Lipase (23-300) U/L Urine RBC None seen (0-5/HPF) Urine WBC 5-10/hpf H (0-5/HPF) Ur Squamous Epith Cells 0-1 /hpf D (0-5/HPF) Amorphous Sediment 1+ Urine Bacteria None seen (None) Ur Culture Indicated? Specimen cultured Urine Dip Bedside Urine Glucose Negative Bedside Urine Bilirubin - Negative Bedside Urine Ketone - Negative Urine Specific [place] 1.010 Bedside Urine Occult Blood - Negative Bedside Urine pH 5.5 Bedside Urine Protein - Negative Bedside Urine Urobilinogen - Negative Bedside Urine Nitrite - Negative Bedside Urine Leukocytes ++ 125 Esterase Imaging Data US - abdomen: Radiologist's Impression: Hepatic steatosis. Status post cholecystectomy. The visualized portion of the hepatic artery is normal. There is no free fluid. ECG Data Attestation: I personally reviewed and interpreted this ECG as follows: (Sinus tachycardia rate 107 beats per minute. PVC. Normal intervals. No acute ST T wave changes. Normal study.) Discharge Plan Departure Patient Disposition: Home Clinical Impression: Abdominal pain, acute, right lower quadrant, Aneurysm artery, hepatic Discharge Date/Time: 12/15/19 06:04 Instructions: DI for Abdominal Pain-Adult Activity Restrictions/Additional Instructions: I would recommend a bland diet until your surgeon the pain has resolved. Advil 2 tablets every 4 6 hours as needed for pain. Your schedule see rheumatology in January. Contact that doctor regarding the current CT findings of your hepatic artery. Return to the ER if you develop increasing abdominal pain pain, or if you are feeling increased dizziness or weakness. Prescriptions: No Action furosemide 40 mg tablet 40 mg PO DAILY Qty: 30 RF: 0 ferrous sulfate 324 mg (65 mg iron) tablet,delayed release (DR/EC) 324 mg PO DAILY Qty: 30 RF: 3 levothyroxine 75 mcg tablet 75 mcg PO DAILY Qty: 90 RF: 3 losartan-hydrochlorothiazide [Hyzaar] 100-25 mg tablet 1 tab PO QDAY Qty: 90 RF: 3 valacyclovir 1 gram tablet See Rx Instructions .ROUTE .COMPLEX Qty: 90 RF: 3 pregabalin [Lyrica] 150 mg capsule See Rx Instructions .ROUTE .COMPLEX Qty: 90 RF: 3 potassium chloride 20 mEq tablet extended release 20 meq PO BID Qty: 60 RF: 1 pantoprazole [Protonix] 40 mg tablet,delayed release (DR/EC) 40 mg PO DAILY Qty: 60 RF: 0 cyclobenzaprine 10 mg tablet See Rx Instructions .ROUTE .COMPLEX Qty: 30 RF: 1 zolpidem 10 mg tablet See Rx Instructions .ROUTE .COMPLEX Qty: 30 RF: 0 Referrals: Kam Farr MD [Primary Care Provider] -
[2019-12-15 00:49] VITALS: BP 144/73; PULSE 103; RESP 16; O2SAT 98
[2019-12-15 01:08] LABS: Add Manual Diff / Slide Review NO; Basophils Absolute Auto 200 /uL (0-100); Basophils Percent Auto 1.6 % (0-2); Eosinophils Absolute Auto 300 /uL (0-450); Eosinophils Percent Auto 3.7 % (2-4); Hematocrit 32.1 % (36-46); Hemoglobin 10.6 g/dL (12.0-16.0); Lymphocytes Absolute Auto 2300 /uL (1100-4500); Lymphocytes Percent Auto 24.4 % (25-40); Mean Corpuscular HGB Conc 32.9 % (30-36); Mean Corpuscular Hemoglobin 27.1 PG (26-34); Mean Corpuscular Volume 82.1 fL (80-100); Monocytes Absolute Auto 700 /uL (0-900); Neutrophils Absolute Auto 5800 /uL (1500-7000); Neutrophils Percent Auto 62.3 % (50-75); Platelet Count 402 X10^3/uL (150-400); Red Cell Distribution Width 14.2 % (11.6-14.8); White Blood Cell Count 9.3 X10^3/uL (4.5-11.0)
[2019-12-15] MEDS: diphenhydrAMINE 50 MG/ML VIAL 25 MG IV (01:11)
[2019-12-15] MEDS: METOCLOPRAMIDE 10 MG/2 ML INJ IV (01:11)
[2019-12-15] MEDS: SODIUM CHLORIDE 0.9% 1,000 ML 150 ML IV (01:11)
[2019-12-15 01:19] LABS: Alanine Aminotransferase 20 IU/L (<35); Albumin Globulin Ratio 1.1 (1.0-2.8); Alkaline Phosphatase 108 U/L (38-126); Aspartate Aminotransferase 29 IU/L (14-36); BUN Creatinine Ratio 12.8 (6-22); Bilirubin Total 0.3 mg/dL (0.2-1.3); Blood Urea Nitrogen 11 mg/dL (7-17); Calcium 9.1 mg/dL (8.4-10.2); Carbon Dioxide 26 mmol/L (22-32); Chloride 105 mmol/L (98-107); Estimated Glomerular Filt Rate > 60.0 mL/min (>60); Globulin 3.6 g/dL (1.7-4.1); Glucose 129 mg/dL (80-110); HEMOLYSIS 19 (0-50); Lipase 114 U/L (23-300); Potassium 3.9 mmol/L (3.4-5.1); Sodium 139 mmol/L (137-145); Total Protein 7.6 g/dL (6.3-8.2)
[2019-12-15 01:38] VITALS: BP 137/68; PULSE 96; RESP 18; O2SAT 98
[2019-12-15 01:40] LABS: Creatine Kinase 37 U/L (30-135)
[2019-12-15 01:53] LABS: Troponin I < 0.012 ng/mL (0.01-0.034)
[2019-12-15 02:22] LABS: Bacteria Urine None Seen; RBC Urine None Seen (0-5/HPF)
[2019-12-15 02:29] LABS: WBC Urine 5-10/HPF (0-5/HPF)
[2019-12-15 02:30] LABS: Amorphous Sediment Urine 1+; Culture Indicated Urine Specimen Cultured; Squamous Epithelial Cell Urine 0-1 /HPF (0-5/HPF)
[2019-12-15 03:02] VITALS: BP 163/76; PULSE 96; RESP 20; O2SAT 95
--- NOTE | 2019-12-15 03:39 | DI.US.S_ITS ---
PROCEDURE: US ABDOMEN LIMITED INDICATIONS: PAIN; HX HEPATIC ARTERY ANEURYSM TECHNIQUE: Real-time focused scanning was performed of the abdomen, with image documentation. COMPARISON: None. FINDINGS: Liver is normal in size. Liver has a diffusely increased echotexture which typically represents fatty infiltration; however, finding is nonspecific and other etiologies including hepatic cirrhosis can have a similar appearance. Please correlate with clinical and laboratory findings. Hepatic artery at the level of the pepper hepatis measures 2.9 mm and demonstrates normal flow. Proximal hepatic artery is not identified and cannot be evaluated. Gallbladder surgically absent. Common bile duct is nondilated measuring 7.6 mm. Pancreas obscured by bowel gas and cannot be evaluated. IMPRESSION: 1. Echogenic liver. Finding typically represents fatty infiltration; however, finding is nonspecific and correlation with clinical and laboratory findings is recommended to exclude other etiologies including hepatic cirrhosis. 2. Status post cholecystectomy. Dictated by: Roxanne Del Angel MD, PhD on 12/15/2019 at 8:40 Approved by: Roxanne Del Angel MD, PhD on 12/15/2019 at 8:41
[2019-12-15] MEDS: HYDROMORPHONE 1 MG INJ IV (03:51)
[2019-12-15 03:57] VITALS: BP 152/74; PULSE 90; RESP 18; O2SAT 97
[2019-12-15 05:19] VITALS: BP 129/65; PULSE 80; RESP 16; O2SAT 95
== END 2019-12-15 06:04 | disposition home or self-care (01) ==
PROVIDERS: Emergency Provider Emergency Medicine; PCP Family Medicine
DX: I72.8 Aneurysm of other specified arteries (principal); R10.31 Right lower quadrant pain; R42 Dizziness and giddiness; R00.0 Tachycardia, unspecified; R07.9 Chest pain, unspecified
CPT/HCPCS: 36415; 76705; 80053; 81003; 81015; 82550; 83690; 84484; 85025; 85610; 87086; 93005; 93010; 96374; 96375; 99284; J1170; J1200; J2765

== ENCOUNTER → 2019-12-16 12:17 | Outpatient (CLI) | payer OTHER, SELFPAY ==
[2019-12-16 13:29] LABS: C-Reactive Protein Quant 0.9 mg/dL (<1.0)
[2019-12-16 14:07] LABS: Erythrocyte Sedimentation Rate 67 MM/HR (0-20)
== END ==
PROVIDERS: PCP Family Medicine
DX: I72.8 Aneurysm of other specified arteries (principal)
CPT/HCPCS: 36415; 85651; 86140

== ENCOUNTER → 2020-01-24 15:57 | Outpatient (CLI) | payer OTHER, SELFPAY ==
[2020-01-24 18:24] LABS: Appearance Urine UA CLEAR; Bilirubin Urine UA NEGATIVE (NEGATIVE); Color Urine UA YELLOW; Glucose Urine UA NEGATIVE (Negative); Ketones Urine UA NEGATIVE (NEGATIVE); Leukocyte Esterase Urine UA 2+ (NEGATIVE); Nitrite Urine UA NEGATIVE (Negative); Occult Blood Urine UA NEGATIVE (Negative); Protein Urine UA NEGATIVE (Negative); Specific Gravity Urine UA <=1.005 (1.000-1.035); Urobilinogen Urine UA 0.2 E.U./dL (0.2)
[2020-01-24 18:27] LABS: pH Urine UA 5.5 (4.5-8.0)
[2020-01-24 18:28] LABS: RBC Urine None Seen (0-5/HPF)
[2020-01-24 18:39] LABS: Bacteria Urine Occasional (0-1); Culture Indicated Urine Specimen Cultured; Squamous Epithelial Cell Urine 1-5 /HPF (0-5/HPF); Transitional Epi Cells Urine 0-1/HPF (0-5/HPF); WBC Urine 10-30/HPF (0-5/HPF)
== END ==
PROVIDERS: PCP Family Medicine; Referring Provider Family Medicine; Visit Provider Family Medicine
DX: R30.0 Dysuria (principal)
CPT/HCPCS: 81003; 81015; 87086

== ENCOUNTER → 2020-02-15 11:26 | Outpatient (CLI) | payer OTHER, SELFPAY ==
[2020-02-15 14:19] LABS: Appearance Urine UA CLEAR; Bilirubin Urine UA NEGATIVE (NEGATIVE); Color Urine UA YELLOW; Glucose Urine UA NEGATIVE (Negative); Ketones Urine UA NEGATIVE (NEGATIVE); Leukocyte Esterase Urine UA 2+ (NEGATIVE); Nitrite Urine UA NEGATIVE (Negative); Occult Blood Urine UA TRACE-INTACT (Negative); Protein Urine UA NEGATIVE (Negative); Urobilinogen Urine UA 0.2 E.U./dL (0.2)
[2020-02-15 14:23] LABS: pH Urine UA 5.5 (4.5-8.0)
[2020-02-15 14:51] LABS: Bacteria Urine Moderate (10-30); Hyaline Casts Urine 0-1/LPF; RBC Urine 0-1/HPF (0-5/HPF); Squamous Epithelial Cell Urine 1-5 /HPF (0-5/HPF); WBC Urine 30-100/HPF (0-5/HPF)
[2020-02-15 14:52] LABS: Culture Indicated Urine Specimen Cultured
== END ==
PROVIDERS: PCP Family Medicine; Referring Provider Family Medicine; Visit Provider Family Medicine
DX: R30.0 Dysuria (principal)
CPT/HCPCS: 81003; 81015; 87086

== ENCOUNTER 2020-03-18 15:24 | Emergency (ER) | payer OTHER, MEDICARE, SELFPAY ==
[2020-03-18] VITALS (12 sets, daily range): BP systolic 123–141; BP diastolic 63–85; PULSE 86–110; RESP 13–25; TEMP 36.7–37; O2SAT 93–100; BMI 34.2
--- NOTE | 2020-03-18 15:45 | DI.RAD.S_ITS ---
PROCEDURE: XR CHEST 1V INDICATIONS: suspected sepsis TECHNIQUE: One view of the chest was acquired. COMPARISON: [facility], , XR CHEST 1V, 11/23/2019, 17:32. FINDINGS: Surgical changes and devices: Postsurgical changes are seen in upper abdomen and gallbladder fossa.. Lungs and pleura: Lungs are clear. No pleural effusions or pneumothorax. Mediastinum: Mediastinal contours appear normal. Heart size is normal. Bones and chest wall: No suspicious bony lesions. Overlying soft tissues appear unremarkable. There is suggestion of a large hiatal hernia. IMPRESSION: No acute cardiopulmonary pathology. Dictated by: Wolf Mason M.D. on 03/18/2020 at 16:26 Approved by: Wolf Mason M.D. on 03/18/2020 at 16:26
--- NOTE | 2020-03-18 16:29 | PC.NURSE ---
Pt state she has had urosepsis in the past. states recently she has been really dizzy with some confusion which is how she presented when she was septic. had had chills and sweats. denies cough or SOB.
[2020-03-18 16:34] LABS: Appearance Urine UA CLEAR; Bilirubin Urine UA NEGATIVE (NEGATIVE); Color Urine UA YELLOW; Glucose Urine UA NEGATIVE (Negative); Ketones Urine UA NEGATIVE (NEGATIVE); Leukocyte Esterase Urine UA TRACE (NEGATIVE); Nitrite Urine UA NEGATIVE (Negative); Occult Blood Urine UA TRACE-LYSED (Negative); Protein Urine UA NEGATIVE (Negative); Urobilinogen Urine UA 0.2 E.U./dL (0.2)
[2020-03-18 16:39] LABS: Prothrombin Time 11.3 SECONDS (10.1-12.7)
[2020-03-18 16:40] LABS: Add Manual Diff / Slide Review NO; Basophils Absolute Auto 100 /uL (0-100); Eosinophils Absolute Auto 300 /uL (0-450); Eosinophils Percent Auto 5.6 % (2-4); Hematocrit 39.8 % (36-46); Hemoglobin 12.4 g/dL (12.0-16.0); Lymphocytes Absolute Auto 1600 /uL (1100-4500); Lymphocytes Percent Auto 27.8 % (25-40); Mean Corpuscular HGB Conc 31.1 % (30-36); Mean Corpuscular Hemoglobin 24.7 PG (26-34); Mean Corpuscular Volume 79.3 fL (80-100); Monocytes Absolute Auto 600 /uL (0-900); Monocytes Percent Auto 9.7 % (3-14); Neutrophils Absolute Auto 3200 /uL (1500-7000); Neutrophils Percent Auto 54.9 % (50-75); Platelet Count 319 X10^3/uL (150-400); Red Blood Cell Count 5.02 X10^6/uL (4.0-5.2); Red Cell Distribution Width 16.8 % (11.6-14.8); White Blood Cell Count 5.8 X10^3/uL (4.5-11.0)
[2020-03-18 16:42] LABS: PTT Partial Thromboplastin Tim 31 SECONDS (26.4-36.2)
[2020-03-18 16:45] LABS: Alanine Aminotransferase 31 IU/L (<35); Albumin 4.1 g/dL (3.5-5.0); Albumin Globulin Ratio 1.2 (1.0-2.8); Alkaline Phosphatase 101 U/L (38-126); Aspartate Aminotransferase 35 IU/L (14-36); BUN Creatinine Ratio 11.5 (6-22); Bilirubin Total 0.5 mg/dL (0.2-1.3); Blood Urea Nitrogen 12 mg/dL (7-17); Carbon Dioxide 23 mmol/L (22-32); Chloride 107 mmol/L (98-107); Estimated Glomerular Filt Rate 53.2 mL/min (>60); Globulin 3.4 g/dL (1.7-4.1); Glucose 130 mg/dL (80-110); HEMOLYSIS < 15 (0-50); Lipase 122 U/L (23-300); Potassium 3.6 mmol/L (3.4-5.1); Sodium 139 mmol/L (137-145); Total Protein 7.5 g/dL (6.3-8.2)
[2020-03-18 16:47] LABS: Lactate (Lactic Acid) 3.1 mmol/L (0.7-2.1)
[2020-03-18 16:53] LABS: Bacteria Urine Few (2-10); Culture Indicated Urine Specimen Cultured; RBC Urine 0-1/HPF (0-5/HPF); Squamous Epithelial Cell Urine 0-1 /HPF (0-5/HPF); WBC Urine 1-5/HPF (0-5/HPF); pH Urine UA 5.5 (4.5-8.0)
[2020-03-18 17:05] LABS: Procalcitonin < 0.05 ng/mL (<0.5)
[2020-03-18] MEDS: SODIUM CHLORIDE 0.9% 1,000 ML 1000 ML IV (17:31)
[2020-03-18 18:25] LABS: Reflexed Lactate in 2 Hours Y
--- NOTE | 2020-03-18 18:29 | ED_ITS ---
HPI - General Adult General Chief complaint: Urogenital-Female Stated complaint: Severe Dizziness, Hot and Cold, HX Sepsis Time Seen by Provider: 03/18/20 18:05 Source: patient Mode of arrival: Ambulatory Limitations: no limitations History of Present Illness HPI narrative: 65-year-old female here for evaluation of approximately 3 days of she describes as dizziness, hot and cold episodes, potentially discolored urine. She states that she had her urine checked approximately 1 week ago with a urine culture and was told that she had no infection. She states that she feels ?spacey? she states that the dizziness is a room spinning sensation. It does appear to be a positional especially when she looks up or turns her head. She has no chest pain or shortness of breath during the episodes. She has had ?sepsis? in the past and she was concerned about this given her urinary symptoms. Related Data Previous Rx's Medication Instructions Recorded levothyroxine 75 mcg tablet 75 mcg PO DAILY #90 tab 04/03/19 losartan 100 1 tab PO QDAY #90 tab 05/05/19 mg-hydrochlorothiazide 25 mg tablet valacyclovir 1 gram tablet See Rx Instructions .ROUTE 09/27/19 .COMPLEX #90 tab pregabalin 150 mg capsule See Rx Instructions .ROUTE 10/31/19 .COMPLEX #90 capsule ferrous sulfate 324 mg (65 mg 324 mg PO DAILY #30 tab 12/05/19 iron) tablet,delayed release nitrofurantoin macrocrystal 50 mg 50 mg PO BEDTIME #30 cap 01/02/20 capsule furosemide 40 mg tablet 40 mg PO DAILY #30 tab 01/15/20 pantoprazole 40 mg tablet,delayed 40 mg PO DAILY #60 tab 01/29/20 release cyclobenzaprine 10 mg tablet See Rx Instructions .ROUTE 02/16/20 .COMPLEX #30 tablet zolpidem 10 mg tablet See Rx Instructions .ROUTE 02/16/20 .COMPLEX #30 tablet potassium chloride 20 mEq 20 meq PO BID #60 tab 03/18/20 tablet,extended release Allergies Allergy/AdvReac Type Severity Reaction Status Date / Time morphine [MORPHINE] Allergy Severe ANAPHYLAXIS Verified 03/18/20 15:40 adhesive tape [ADHESIVE TAPE] Allergy Mild PAPER TAPE Verified 03/18/20 15:40 OK- RASH Sulfa (Sulfonamide Allergy Mild RASH/RED Verified 03/18/20 15:40 Antibiotics) FACE/MOUTH [SULFA (SULFONAMIDE BLISTERS ANTIBIOTICS)] topiramate [From TOPAMAX] Allergy Mild Rash Verified 03/18/20 15:40 ciprofloxacin Allergy Unknown Verified 03/18/20 15:40 ondansetron [From Zofran] AdvReac Nausea Verified 03/18/20 15:40 Review of Systems Constitutional Constitutional: Denies fatigue, Denies fever(s) and Denies headache(s) Eyes Eyes: Reports blurry vision and Denies eye pain ENT Ears, Nose, Mouth, and Throat: Reports vertigo, Reports dizziness, Denies headache(s) and Denies sore throat Cardiovascular Cardiovascular: Denies chest pain, Denies syncope, Denies rapid heart rate and Denies dyspnea Respiratory Respiratory: Denies cough and Denies dyspnea Gastrointestinal Gastrointestinal: Denies abdominal pain, Denies change in bowel habits, Denies n ausea and Denies vomiting Genitourinary Genitourinary: Reports dysuria Genitourinary: Reports dysuria and Denies vaginal discharge Musculoskeletal Musculoskeletal: Denies arthralgias and Denies deformity Integumentary/Breasts Skin/Breast: Denies lesions and Denies rash Neurologic Neurologic: Denies behavioral changes, Reports vertigo, Reports dizziness, Denies syncope and Denies headache(s) Psychiatric Psychiatric: Denies anxiety, Denies behavioral changes and Denies depression Endocrine Endocrine: Denies fatigue Hematologic/Lymphatic Hematologic/Lymphatic: Denies easy bleeding and Denies easy bruising Allergic/Immunologic Allergic/Immunologic: Denies urticaria Patient History Medical History Iron deficiency anemia (Acute) Renal mass (Acute) Sepsis (Acute) Social History Smoking Status: Never smoker Smoking Status: Never smoker alcohol intake frequency: holidays/special occasions only Substance Use Type: does not use Exam Initial Vital Signs Initial Vital Signs: Vital Signs Temperature 98.1 F 03/18/20 15:33 Pulse Rate 110 H 03/18/20 15:33 Respiratory Rate 18 03/18/20 15:33 Blood Pressure 123/77 03/18/20 15:33 Pulse Oximetry 95 03/18/20 15:33 Const General: cooperative, comfortable and well developed Limitations: mental status not altered [facility] Head: normal to inspection and normocephalic Ears: TM's normal bilaterally Nose: external nose normal Face and sinus: normal facial exam Mouth: oral mucosae normal Eyes General: appearance normal, both eyes and all related structures Periorbital: periorbital findings normal Eyelids: eyelids normal Conjunctivae: conjunctivae normal Sclera: sclerae normal Pupils: PERRL EOM: EOM abnormal and movement deficit unable to deviate superiorly (Decrease deviation superior on the right compared to left) Direct ophthalmoscopy: normal light reflex Resp Effort & Inspection: normal respiratory effort Auscultation: clear to auscultation bilaterally Cardio Rate: tachycardic Rhythm: regular rhythm Pulses: radial pulses present GI Inspection: non-distended Palpation: soft Skin Lesions: no lesions Rashes: no rashes Neuro General: patient alert and patient awake Cognition: normal cognition Speech: speech normal Sensory Exam: no sensory deficits noted Extrem General: normal to inspection and capillary refill normal Psych Appearance: grossly normal and well kempt Scores GCS Sha coma scale eye opening: Spontaneous Sha coma scale verbal response: Orientated Sha coma scale motor response: Obey commands Sha coma scale total score: 15 Course Orders Ordered: ED Orders 03/18/20 15:45 XR chest 1V Stat EKG-12 Lead Stat RT Consult Eval and Treat Now 03/18/20 16:11 Urinalysis and Microscopic Stat Urine Culture Stat 03/18/20 16:20 Complete Blood Count AUTO DIFF Stat Comprehensive Metabolic Panel Stat Lactate (Lactic Acid) Stat Lipase Stat Partial Thromboplastin Time Stat Procalcitonin Stat Prothrombin Time INR Stat 03/18/20 16:42 Blood Culture Stat Discontinued Medications Sodium Chloride (Normal Saline 0.9%) 1,000 mls @ 1,000 mls/hr IV BOLUS ONE Stop: 03/18/20 16:44 Last Infusion: 03/18/20 18:47 Dose: 0 mls/hr Documented by: Admin: 03/18/20 17:31 Dose: 1,000 mls/hr Documented by: DINA Vital Signs Vital signs: Vital Signs - 8 hr 03/18/20 16:19 03/18/20 16:21 03/18/20 16:30 Temperature Pulse Rate 109 H 107 H 106 H Respiratory Rate 18 Blood Pressure 141/73 H 127/68 Pulse Oximetry 93 93 94 03/18/20 17:00 03/18/20 17:30 03/18/20 17:31 Temperature Pulse Rate 101 H 98 H Respiratory Rate 19 22 13 Blood Pressure 137/72 134/68 Pulse Oximetry 94 94 94 03/18/20 18:00 03/18/20 18:30 03/18/20 19:00 Temperature Pulse Rate 89 86 86 Respiratory Rate 16 22 22 Blood Pressure 125/69 128/63 135/81 Pulse Oximetry 100 98 97 03/18/20 19:30 03/18/20 19:32 Temperature 98.6 F Pulse Rate 86 86 Respiratory Rate 25 H 20 Blood Pressure 139/85 Pulse Oximetry 96 96 Medical Decision Making Medical Records Medical records reviewed: Yes I reviewed the patient's medical records. Lab Data Lab results reviewed: Yes I reviewed the patient's lab results. Result diagrams: 03/18/20 16:20 03/18/20 16:20 Labs: Lab Results 03/18/20 03/18/20 03/18/20 Range/Units 16:11 16:20 16:20 WBC 5.8 (4.5-11.0) X10^3/uL RBC 5.02 (4.0-5.2) X10^6/uL Hgb 12.4 (12.0-16.0) g/dL Hct 39.8 (36-46) % MCV 79.3 L (80-100) fL MCH 24.7 L (26-34) PG MCHC 31.1 (30-36) % RDW 16.8 H (11.6-14.8) % Plt Count 319 (150-400) X10^3/uL Neut % (Auto) 54.9 (50-75) % Lymph % (Auto) 27.8 (25-40) % [place] % (Auto) 9.7 (3-14) % Eos % (Auto) 5.6 H (2-4) % Baso % (Auto) 2.0 (0-2) % Neut # (Auto) 3200 (2882-8344) /uL Lymph # (Auto) 1600 (7973-8691) /uL [place] # (Auto) 600 (0-900) /uL Eos # (Auto) 300 (0-450) /uL Baso # (Auto) 100 (0-100) /uL PT 11.3 (10.1-12.7) SECONDS INR 1.0 (0.9-1.3) APTT 31 (26.4-36.2) SECONDS Sodium (137-145) mmol/L Potassium (3.4-5.1) mmol/L Chloride (98-107) mmol/L Carbon Dioxide (22-32) mmol/L BUN (7-17) mg/dL Creatinine (0.52-1.04) mg/dL Estimated GFR (>60) mL/min BUN/Creatinine Ratio (6-22) Glucose (80-110) mg/dL Lactate (0.7-2.1) mmol/L Calcium (8.4-10.2) mg/dL Total Bilirubin (0.2-1.3) mg/dL AST (14-36) IU/L ALT (<35) IU/L Alkaline Phosphatase (38-126) U/L Total Protein (6.3-8.2) g/dL Albumin (3.5-5.0) g/dL Globulin (1.7-4.1) g/dL Albumin/Globulin Ratio (1.0-2.8) Lipase (23-300) U/L Procalcitonin (<0.5) ng/mL Urine Color Yellow Urine Appearance Clear Urine pH 5.5 (4.5-8.0) Ur Specific [place] 1.010 (1.000-1.035) Urine Protein Negative (Negative) Urine Glucose (UA) Negative (Negative) g/dL Urine Ketones Negative (NEGATIVE) Urine Occult Blood Trace-lysed (Negative) Urine Nitrate Negative (Negative) Urine Bilirubin Negative (NEGATIVE) Urine Urobilinogen 0.2 (0.2) E.U./dL Ur Leukocyte Esterase Trace H (NEGATIVE) Urine RBC 0-1/hpf (0-5/HPF) Urine WBC 1-5/hpf (0-5/HPF) Ur Squamous Epith Cells 0-1 /hpf (0-5/HPF) Urine Bacteria Few (2-10) H (None) Ur Culture Indicated? Specimen cultured 03/18/20 03/18/20 03/18/20 Range/Units 16:20 16:20 16:20 WBC (4.5-11.0) X10^3/uL RBC (4.0-5.2) X10^6/uL Hgb (12.0-16.0) g/dL Hct (36-46) % MCV (80-100) fL MCH (26-34) PG MCHC (30-36) % RDW (11.6-14.8) % Plt Count (150-400) X10^3/uL Neut % (Auto) (50-75) % Lymph % (Auto) (25-40) % [place] % (Auto) (3-14) % Eos % (Auto) (2-4) % Baso % (Auto) (0-2) % Neut # (Auto) (4093-0290) /uL Lymph # (Auto) (4687-7611) /uL [place] # (Auto) (0-900) /uL Eos # (Auto) (0-450) /uL Baso # (Auto) (0-100) /uL PT (10.1-12.7) SECONDS INR (0.9-1.3) APTT (26.4-36.2) SECONDS Sodium 139 (137-145) mmol/L Potassium 3.6 (3.4-5.1) mmol/L Chloride 107 (98-107) mmol/L Carbon Dioxide 23 (22-32) mmol/L BUN 12 (7-17) mg/dL Creatinine 1.04 (0.52-1.04) mg/dL Estimated GFR 53.2 L (>60) mL/min BUN/Creatinine Ratio 11.5 (6-22) Glucose 130 H (80-110) mg/dL Lactate 3.1 H (0.7-2.1) mmol/L Calcium 9.0 (8.4-10.2) mg/dL Total Bilirubin 0.5 (0.2-1.3) mg/dL AST 35 (14-36) IU/L ALT 31 (<35) IU/L Alkaline Phosphatase 101 (38-126) U/L Total Protein 7.5 (6.3-8.2) g/dL Albumin 4.1 (3.5-5.0) g/dL Globulin 3.4 (1.7-4.1) g/dL Albumin/Globulin Ratio 1.2 (1.0-2.8) Lipase 122 (23-300) U/L Procalcitonin < 0.05 (<0.5) ng/mL Urine Color Urine Appearance Urine pH (4.5-8.0) Ur Specific [place] (1.000-1.035) Urine Protein (Negative) Urine Glucose (UA) (Negative) g/dL Urine Ketones (NEGATIVE) Urine Occult Blood (Negative) Urine Nitrate (Negative) Urine Bilirubin (NEGATIVE) Urine Urobilinogen (0.2) E.U./dL Ur Leukocyte Esterase (NEGATIVE) Urine RBC (0-5/HPF) Urine WBC (0-5/HPF) Ur Squamous Epith Cells (0-5/HPF) Urine Bacteria (None) Ur Culture Indicated? 03/18/20 Range/Units 18:37 WBC (4.5-11.0) X10^3/uL RBC (4.0-5.2) X10^6/uL Hgb (12.0-16.0) g/dL Hct (36-46) % MCV (80-100) fL MCH (26-34) PG MCHC (30-36) % RDW (11.6-14.8) % Plt Count (150-400) X10^3/uL Neut % (Auto) (50-75) % Lymph % (Auto) (25-40) % [place] % (Auto) (3-14) % Eos % (Auto) (2-4) % Baso % (Auto) (0-2) % Neut # (Auto) (4945-4385) /uL Lymph # (Auto) (0692-1721) /uL [place] # (Auto) (0-900) /uL Eos # (Auto) (0-450) /uL Baso # (Auto) (0-100) /uL PT (10.1-12.7) SECONDS INR (0.9-1.3) APTT (26.4-36.2) SECONDS Sodium (137-145) mmol/L Potassium (3.4-5.1) mmol/L Chloride (98-107) mmol/L Carbon Dioxide (22-32) mmol/L BUN (7-17) mg/dL Creatinine (0.52-1.04) mg/dL Estimated GFR (>60) mL/min BUN/Creatinine Ratio (6-22) Glucose (80-110) mg/dL Lactate 1.3 (0.7-2.1) mmol/L Calcium (8.4-10.2) mg/dL Total Bilirubin (0.2-1.3) mg/dL AST (14-36) IU/L ALT (<35) IU/L Alkaline Phosphatase (38-126) U/L Total Protein (6.3-8.2) g/dL Albumin (3.5-5.0) g/dL Globulin (1.7-4.1) g/dL Albumin/Globulin Ratio (1.0-2.8) Lipase (23-300) U/L Procalcitonin (<0.5) ng/mL Urine Color Urine Appearance Urine pH (4.5-8.0) Ur Specific [place] (1.000-1.035) Urine Protein (Negative) Urine Glucose (UA) (Negative) g/dL Urine Ketones (NEGATIVE) Urine Occult Blood (Negative) Urine Nitrate (Negative) Urine Bilirubin (NEGATIVE) Urine Urobilinogen (0.2) E.U./dL Ur Leukocyte Esterase (NEGATIVE) Urine RBC (0-5/HPF) Urine WBC (0-5/HPF) Ur Squamous Epith Cells (0-5/HPF) Urine Bacteria (None) Ur Culture Indicated? Imaging Data Chest x-ray: Radiologist's Impression: [address] [address] XRay Report Signed Patient: Lucinda Cortez [facility]#: [id number] : 5Acct:[id number] Age/Sex: 65 / FDate of Service: 03/18/20 Loc: ED Accession Number: [id number] Procedure: XR chest 1V Ordering Provider: Karolina Aguilera MD PROCEDURE: XR CHEST 1V INDICATIONS: suspected sepsis TECHNIQUE: One view of the chest was acquired. COMPARISON: [facility], , XR CHEST 1V, 11/23/2019, 17:32. FINDINGS: Surgical changes and devices: Postsurgical changes are seen in upper abdomen and gallbladder fossa.. Lungs and pleura: Lungs are clear. No pleural effusions or pneumothorax. Mediastinum: Mediastinal contours appear normal. Heart size is normal. Bones and chest wall: No suspicious bony lesions. Overlying soft tissues appear unremarkable. There is suggestion of a large hiatal hernia. IMPRESSION: No acute cardiopulmonary pathology. Dictated by: Wolf Mason M.D. on 03/18/2020 at 16:26 Approved by: Wolf Mason M.D. on 03/18/2020 at 16:26 ECG Data Attestation: I personally reviewed and interpreted this ECG as follows: Prior ECG tracings: not available for review Interpretation: Sinus tachycardia Ventricular rate of 106 Normal axis Normal QRS Normal QTC No ST T wave changes MDM Narrative Medical decision making narrative: Chest x-ray unremarkable, EKG is unremarkable, does not have a leukocytosis. Initial lactate elevated but this improved with fluids. Patient's exam is unremarkable except that we can reproduce her symptoms when she looks up with binocular vision. It appears on my exam that the right eye is not deviating superiorly as much as the left eye. The rest of her extra-ocular muscles seem to be intact. She does describe the dizziness as a room spinning sensation and by looking up this does reproduce the symptoms that brought her in. her urine does not have any signs of infection. Low suspicion for sepsis. Discussed this with her. I discussed her eye findings with her. 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 She was given return precautions and follow-up instructions. She expressed understanding and agreement Discharge Plan Departure Patient Disposition: Home Clinical Impression: Cranial nerve impairment Discharge Date/Time: 03/18/20 19:34 Instructions: Vertigo Activity Restrictions/Additional Instructions: Continue all of your medications as directed. Recommend that tomorrow you contact your primary doctor to discuss the indications to see a scenic arts supervisor which I recommend. Return to the emergency department for any new or worsening symptoms Prescriptions: No Action ferrous sulfate 324 mg (65 mg iron) tablet,delayed release (DR/EC) 324 mg PO DAILY Qty: 30 RF: 3 nitrofurantoin macrocrystal 50 mg capsule 50 mg PO BEDTIME Qty: 30 RF: 1 Hold Instructions: per pt/MD levothyroxine 75 mcg tablet 75 mcg PO DAILY Qty: 90 RF: 3 losartan-hydrochlorothiazide [Hyzaar] 100-25 mg tablet 1 tab PO QDAY Qty: 90 RF: 3 valacyclovir 1 gram tablet See Rx Instructions .ROUTE .COMPLEX Qty: 90 RF: 3 pregabalin [Lyrica] 150 mg capsule See Rx Instructions .ROUTE .COMPLEX Qty: 90 RF: 3 furosemide 40 mg tablet 40 mg PO DAILY Qty: 30 RF: 0 pantoprazole [Protonix] 40 mg tablet,delayed release (DR/EC) 40 mg PO DAILY Qty: 60 RF: 5 cyclobenzaprine 10 mg tablet See Rx Instructions .ROUTE .COMPLEX Qty: 30 RF: 2 zolpidem 10 mg tablet See Rx Instructions .ROUTE .COMPLEX Qty: 30 RF: 0 potassium chloride 20 mEq tablet extended release 20 meq PO BID Qty: 60 RF: 1 Referrals: Kam Farr MD [Primary Care Provider] -
[2020-03-18 19:14] LABS: Lactate 2HR (Lactic Acid Rflx) 1.3 mmol/L (0.7-2.1)
== END 2020-03-18 19:34 | disposition home or self-care (01) ==
PROVIDERS: Emergency Medicine; Nurse Practitioner Family; Emergency Provider Emergency Medicine; PCP Family Medicine
DX: G52.9 Cranial nerve disorder, unspecified (principal); R30.0 Dysuria; Z86.19 Personal history of other infectious and parasitic diseases
CPT/HCPCS: 36415; 71045; 80053; 81001; 83605; 83690; 84145; 85025; 85610; 85730; 87040; 87077; 87086; 93005; 96360; 99284

== ENCOUNTER → 2020-04-29 14:27 | Outpatient (CLI) | payer OTHER, MEDICARE, SELFPAY ==
[2020-04-29 14:36] LABS: RBC Urine None Seen (0-5/HPF)
[2020-04-29 15:16] LABS: Add Manual Diff / Slide Review NO; Basophils Absolute Auto 100 /uL (0-100); Basophils Percent Auto 1.2 % (0-2); Eosinophils Absolute Auto 200 /uL (0-450); Eosinophils Percent Auto 3.4 % (2-4); Hematocrit 37.9 % (36-46); Hemoglobin 12.1 g/dL (12.0-16.0); Lymphocytes Absolute Auto 2100 /uL (1100-4500); Lymphocytes Percent Auto 30.3 % (25-40); Mean Corpuscular HGB Conc 31.8 % (30-36); Mean Corpuscular Hemoglobin 25.9 PG (26-34); Mean Corpuscular Volume 81.3 fL (80-100); Monocytes Absolute Auto 700 /uL (0-900); Monocytes Percent Auto 10.4 % (3-14); Neutrophils Absolute Auto 3900 /uL (1500-7000); Neutrophils Percent Auto 54.7 % (50-75); Platelet Count 309 X10^3/uL (150-400); Red Blood Cell Count 4.66 X10^6/uL (4.0-5.2)
[2020-04-29 15:21] LABS: Appearance Urine UA CLEAR; Bilirubin Urine UA NEGATIVE (NEGATIVE); Color Urine UA YELLOW; Glucose Urine UA NEGATIVE (Negative); Ketones Urine UA NEGATIVE (NEGATIVE); Leukocyte Esterase Urine UA TRACE (NEGATIVE); Nitrite Urine UA NEGATIVE (Negative); Occult Blood Urine UA NEGATIVE (Negative); Protein Urine UA NEGATIVE (Negative); Specific Gravity Urine UA <=1.005 (1.000-1.035); Urobilinogen Urine UA 0.2 E.U./dL (0.2)
[2020-04-29 15:31] LABS: Squamous Epithelial Cell Urine 0-1 /HPF (0-5/HPF); WBC Urine 5-10/HPF (0-5/HPF)
[2020-04-29 15:32] LABS: Bacteria Urine Occasional (0-1); Culture Indicated Urine Specimen Cultured
== END ==
PROVIDERS: PCP Family Medicine; Referring Provider Family Medicine; Visit Provider Family Medicine
DX: R30.0 Dysuria (principal)
CPT/HCPCS: 36415; 81001; 85025; 87077; 87086; 87147

== ENCOUNTER → 2020-05-01 12:43 | Outpatient (CLI) | payer OTHER, MEDICARE, SELFPAY ==
[2020-05-01 17:04] LABS: Alanine Aminotransferase 30 IU/L (<35); Albumin 4.1 g/dL (3.5-5.0); Albumin Globulin Ratio 1.1 (1.0-2.8); Alkaline Phosphatase 97 U/L (38-126); Aspartate Aminotransferase 39 IU/L (14-36); Bilirubin Total 0.5 mg/dL (0.2-1.3); Blood Urea Nitrogen 11 mg/dL (7-17); Carbon Dioxide 26 mmol/L (22-32); Chloride 106 mmol/L (98-107); Estimated Glomerular Filt Rate 55.6 mL/min (>60); Globulin 3.6 g/dL (1.7-4.1); Glucose 80 mg/dL (80-110); Sodium 140 mmol/L (137-145); Total Protein 7.7 g/dL (6.3-8.2)
[2020-05-01 17:37] LABS: HEMOLYSIS 52 (0-50)
== END ==
PROVIDERS: PCP Family Medicine; Referring Provider Urology; Visit Provider Urology
DX: Z01.818 Encounter for other preprocedural examination (principal); N28.89 Other specified disorders of kidney and ureter
CPT/HCPCS: 36415; 80053

== ENCOUNTER → 2020-06-03 14:55 | Outpatient (CLI) | payer OTHER, MEDICARE, SELFPAY ==
[2020-06-03 16:29] LABS: BUN Creatinine Ratio 15.2 (6-22); Blood Urea Nitrogen 19 mg/dL (7-17); Calcium 8.9 mg/dL (8.4-10.2); Carbon Dioxide 30 mmol/L (22-32); Chloride 101 mmol/L (98-107); Glucose 97 mg/dL (80-110); HEMOLYSIS < 15 (0-50); Potassium 3.4 mmol/L (3.4-5.1); Sodium 137 mmol/L (137-145)
== END ==
PROVIDERS: PCP Family Medicine; Referring Provider Urology; Visit Provider Urology
DX: D30.02 Benign neoplasm of left kidney (principal)
CPT/HCPCS: 36415; 80048

== ENCOUNTER → 2020-06-11 07:35 | Outpatient (CLI) | payer OTHER, MEDICARE, SELFPAY ==
--- NOTE | 2020-06-11 09:00 | DI.CT.S_ITS ---
PROCEDURE: CT ABDOMEN PELVIS W CON INDICATIONS: Unspecified abdominal pain TECHNIQUE: After the administration of oral and intravenous contrast, 5 mm thick sections acquired from the diaphragms to the symphysis. 5 mm thick coronal and sagittal reformats were performed. For radiation dose reduction, the following was used: automated exposure control, adjustment of mA and/or kV according to patient size. COMPARISON: [facility], CT, CT ANGIO ABDOMEN PELVIS, 12/14/2019, 11:36. FINDINGS: Image quality: Excellent. ABDOMEN: Lung bases: Lung bases are clear. Heart size is normal. Solid organs: Liver is normal in size and enhancement. Gallbladder has been removed . Biliary system is non-dilated. Pancreas enhances normally. Spleen is normal in size and enhancement. No adrenal nodules. Kidneys are normal in size. There appears to have been interval surgical resection of the left renal mass. However, there is decreased enhancement within the adjacent renal parenchyma. Peritoneum and bowel: Stomach, small bowel, and colon loops are normal in caliber and wall thickness. No free fluid or air. Moderate stool is present within the right and portions of the transverse colon. Nodes and vessels: No retroperitoneal or mesenteric adenopathy. Aorta and inferior vena cava are normal in caliber. Postsurgical changes are present within the region of the right hepatic artery. Miscellaneous: No ventral hernias. Large hiatal hernia. PELVIS: Genitourinary: Bladder wall is diffusely thickened and incompletely distended. Miscellaneous: No inguinal hernias or adenopathy. Bones: No suspicious bony lesions. No vertebral body compression fractures. Right SI fixation is noted. IMPRESSION: 1. Interval hepatic artery surgical changes. 2. Resection of previous left renal mass. However, there is decreased enhancement of the adjacent renal parenchyma. While this could be postsurgical in nature, extension of presumed neoplasm in this region cannot be excluded. 3. Diffusely thickened bladder wall. While this could be secondary to incomplete distension, cystitis could have a similar appearance and recommend clinical correlation. 4. Moderate colonic stool without obstruction. Dictated by: Gwen Burnett M.D. on 06/11/2020 at 8:20 Approved by: Gwen Burnett M.D. on 06/11/2020 at 8:34
== END ==
PROVIDERS: PCP Family Medicine; Referring Provider Family Medicine; Visit Provider Surgery
DX: R10.9 Unspecified abdominal pain (principal); Z90.49 Acquired absence of other specified parts of digestive tract
CPT/HCPCS: 74177; Q9967

== ENCOUNTER → 2020-06-19 15:55 | Outpatient (CLI) | payer OTHER, MEDICARE, SELFPAY ==
[2020-06-19 17:05] LABS: Add Manual Diff / Slide Review NO; Basophils Absolute Auto 200 /uL (0-100); Basophils Percent Auto 1.2 % (0-2); Eosinophils Absolute Auto 400 /uL (0-450); Eosinophils Percent Auto 2.8 % (2-4); Hemoglobin 11.6 g/dL (12.0-16.0); Lymphocytes Absolute Auto 2100 /uL (1100-4500); Lymphocytes Percent Auto 17.1 % (25-40); Mean Corpuscular HGB Conc 31.4 % (30-36); Mean Corpuscular Hemoglobin 25.4 PG (26-34); Monocytes Absolute Auto 1000 /uL (0-900); Monocytes Percent Auto 7.8 % (3-14); Neutrophils Absolute Auto 8900 /uL (1500-7000); Neutrophils Percent Auto 71.1 % (50-75); Platelet Count 509 X10^3/uL (150-400); Red Blood Cell Count 4.56 X10^6/uL (4.0-5.2); Red Cell Distribution Width 15.2 % (11.6-14.8); White Blood Cell Count 12.5 X10^3/uL (4.5-11.0)
[2020-06-19 17:13] LABS: Appearance Urine UA CLOUDY; Bilirubin Urine UA NEGATIVE (NEGATIVE); Color Urine UA YELLOW; Glucose Urine UA NEGATIVE (Negative); Ketones Urine UA NEGATIVE (NEGATIVE); Leukocyte Esterase Urine UA 3+ (NEGATIVE); Nitrite Urine UA NEGATIVE (Negative); Occult Blood Urine UA 2+ (Negative); Protein Urine UA TRACE (Negative); Specific Gravity Urine UA 1.015 (1.000-1.035); Urobilinogen Urine UA 0.2 E.U./dL (0.2)
[2020-06-19 17:22] LABS: Amorphous Sediment Urine 1+; Bacteria Urine Moderate (10-30); Culture Indicated Urine Specimen Cultured; Mucus Urine 1+ (Negative); RBC Urine 1-5/HPF (0-5/HPF); Squamous Epithelial Cell Urine 0-1 /HPF (0-5/HPF); WBC Urine >100/HPF (0-5/HPF)
[2020-06-19 17:35] LABS: Alanine Aminotransferase 21 IU/L (<35); Albumin Globulin Ratio 1.2 (1.0-2.8); Alkaline Phosphatase 124 U/L (38-126); Aspartate Aminotransferase 26 IU/L (14-36); BUN Creatinine Ratio 11.9 (6-22); Bilirubin Total 0.4 mg/dL (0.2-1.3); Blood Urea Nitrogen 14 mg/dL (7-17); Calcium 9.4 mg/dL (8.4-10.2); Carbon Dioxide 30 mmol/L (22-32); Chloride 100 mmol/L (98-107); Globulin 3.3 g/dL (1.7-4.1); Glucose 90 mg/dL (80-110); HEMOLYSIS < 15 (0-50); Potassium 4.2 mmol/L (3.4-5.1); Sodium 135 mmol/L (137-145); Total Protein 7.3 g/dL (6.3-8.2)
== END ==
PROVIDERS: PCP Family Medicine; Referring Provider Family Medicine; Visit Provider Urology
DX: R30.0 Dysuria (principal); R53.83 Other fatigue
CPT/HCPCS: 36415; 80053; 81001; 85025; 87077; 87086; 87147; 87186

== ENCOUNTER 2020-06-20 18:36 | Emergency (ER) | payer OTHER, MEDICARE, SELFPAY ==
[2020-06-20] VITALS (7 sets, daily range): BP systolic 120–150; BP diastolic 56–80; PULSE 84–95; RESP 15–33; TEMP 36.8; O2SAT 82–100; BMI 36.1
--- NOTE | 2020-06-20 19:12 | DI.RAD.S_ITS ---
PROCEDURE: XR CHEST 1V INDICATIONS: suspected sepsis TECHNIQUE: One view of the chest was acquired. COMPARISON: [facility], CR, XR CHEST 1V, 03/18/2020, 16:02. [facility], CR, XR CHEST 1V, 11/23/2019, 17:32. FINDINGS: Surgical changes and devices: None. Lungs and pleura: Lungs are clear. No pleural effusions or pneumothorax. Mediastinum: Mediastinal contours appear normal. Heart size is normal. Bones and chest wall: No suspicious bony lesions. Overlying soft tissues appear unremarkable. IMPRESSION: Moderately large hiatal hernia behind the heart, previously present, no pneumonia found. Dictated by: Hugo Ralph M.D. on 06/20/2020 at 20:28 Approved by: Hugo Ralph M.D. on 06/20/2020 at 20:28
[2020-06-20] MEDS: SODIUM CHLORIDE 0.9% 1,000 ML 1000 ML IV (19:22)
[2020-06-20 19:24] LABS: Add Manual Diff / Slide Review NO; Basophils Absolute Auto 100 /uL (0-100); Basophils Percent Auto 1.3 % (0-2); Eosinophils Absolute Auto 300 /uL (0-450); Eosinophils Percent Auto 3.8 % (2-4); Hematocrit 33.5 % (36-46); Hemoglobin 10.8 g/dL (12.0-16.0); Lymphocytes Absolute Auto 2100 /uL (1100-4500); Mean Corpuscular HGB Conc 32.1 % (30-36); Mean Corpuscular Hemoglobin 25.8 PG (26-34); Mean Corpuscular Volume 80.3 fL (80-100); Monocytes Absolute Auto 800 /uL (0-900); Monocytes Percent Auto 9.2 % (3-14); Neutrophils Absolute Auto 5100 /uL (1500-7000); Neutrophils Percent Auto 60.7 % (50-75); Platelet Count 459 X10^3/uL (150-400); Red Blood Cell Count 4.18 X10^6/uL (4.0-5.2); White Blood Cell Count 8.4 X10^3/uL (4.5-11.0)
[2020-06-20 19:33] LABS: Alanine Aminotransferase 20 IU/L (<35); Albumin 4.1 g/dL (3.5-5.0); Albumin Globulin Ratio 1.1 (1.0-2.8); Alkaline Phosphatase 127 U/L (38-126); Aspartate Aminotransferase 25 IU/L (14-36); BUN Creatinine Ratio 12.5 (6-22); Bilirubin Total 0.4 mg/dL (0.2-1.3); Blood Urea Nitrogen 16 mg/dL (7-17); Carbon Dioxide 31 mmol/L (22-32); Chloride 101 mmol/L (98-107); Estimated Glomerular Filt Rate 41.9 mL/min (>60); Globulin 3.7 g/dL (1.7-4.1); Glucose 98 mg/dL (80-110); HEMOLYSIS < 15 (0-50); Lipase 254 U/L (23-300); Potassium 3.4 mmol/L (3.4-5.1); Sodium 135 mmol/L (137-145); Total Protein 7.8 g/dL (6.3-8.2)
--- NOTE | 2020-06-20 19:44 | ED.GENADULT ---
HPI - General Adult General Chief complaint: Urogenital-Female Stated complaint: uti Time Seen by Provider: 06/20/20 19:04 Source: patient Mode of arrival: Ambulatory Limitations: no limitations History of Present Illness HPI narrative: Patient is a 65-year-old female here for evaluation of dysuria, left-sided flank pain that has been around since her surgery that she had several weeks ago, concerns for sepsis, and feeling unsteady on her feet. She denies any fevers. She is currently on Macrobid 1 time a day. This is prescribed by her urologist after urinalysis that was done yesterday based on the symptoms that brought her to the emergency department today. She also had labs drawn yesterday by her primary doctor. She states she has had some unsteadiness on her feet over the past couple days. She is concerned that potentially the medicine that she is on is causing the symptoms. Related Data Previous Rx's Medication Instructions Recorded valacyclovir 1 gram tablet See Rx Instructions .ROUTE 09/27/19 .COMPLEX #90 tab nitrofurantoin macrocrystal 50 mg 50 mg PO BEDTIME #30 cap 01/02/20 capsule pregabalin 150 mg capsule See Rx Instructions .ROUTE 04/15/20 .COMPLEX #90 capsule cyclobenzaprine 10 mg tablet 10 mg PO BEDTIME #30 tab 04/29/20 levothyroxine 75 mcg tablet 75 mcg PO DAILY #90 tab 05/20/20 losartan 100 1 tab PO QDAY #90 tab 05/27/20 mg-hydrochlorothiazide 25 mg tablet zolpidem 10 mg tablet See Rx Instructions .ROUTE 06/19/20 .COMPLEX #30 tab Allergies Allergy/AdvReac Type Severity Reaction Status Date / Time morphine [MORPHINE] Allergy Severe ANAPHYLAXIS Verified 06/20/20 18:51 adhesive tape [ADHESIVE TAPE] Allergy Mild PAPER TAPE Verified 06/20/20 18:51 OK- RASH Sulfa (Sulfonamide Allergy Mild RASH/RED Verified 06/20/20 18:51 Antibiotics) FACE/MOUTH [SULFA (SULFONAMIDE BLISTERS ANTIBIOTICS)] topiramate [From TOPAMAX] Allergy Mild Rash Verified 06/20/20 18:51 ciprofloxacin Allergy Unknown Verified 06/20/20 18:51 ondansetron [From Zofran] AdvReac Nausea Verified 06/20/20 18:51 Review of Systems Constitutional Constitutional: Reports fatigue and Denies fever(s) ENT Ears, Nose, Mouth, and Throat: Reports disequilibrium Cardiovascular Cardiovascular: Denies chest pain and Denies dyspnea Respiratory Respiratory: Denies dyspnea Gastrointestinal Gastrointestinal: Reports abdominal pain, Denies nausea and Denies vomiting Genitourinary Genitourinary: Reports dysuria and Reports urinary urgency Genitourinary: Reports dysuria, Reports urinary urgency and Denies vaginal discharge Musculoskeletal Musculoskeletal: Denies arthralgias, Reports back pain (Left-sided flank pain) and Denies myalgias Integumentary/Breasts Skin/Breast: Denies lesions and Denies rash Neurologic Neurologic: Reports disequilibrium Psychiatric Psychiatric: Denies anxiety Endocrine Endocrine: Reports fatigue Hematologic/Lymphatic Hematologic/Lymphatic: Denies easy bleeding and Denies easy bruising Allergic/Immunologic Allergic/Immunologic: Denies urticaria Patient History Medical History Iron deficiency anemia Renal mass Sepsis Social History Smoking Status: Never smoker Smoking Status: Never smoker alcohol intake frequency: holidays/special occasions only Substance Use Type: does not use Exam Initial Vital Signs Initial Vital Signs: Vital Signs Temperature 98.2 F 06/20/20 18:51 Pulse Rate 87 06/20/20 18:51 Respiratory Rate 15 06/20/20 18:51 Blood Pressure 150/67 H 06/20/20 18:51 Pulse Oximetry 100 06/20/20 18:51 Const General: cooperative and comfortable Limitations: mental status not altered HENMT Head: normal to inspection and normocephalic Resp Effort & Inspection: normal respiratory effort Auscultation: clear to auscultation bilaterally Cardio Rate: regular rate Rhythm: regular rhythm GI Inspection: non-distended Palpation: soft Skin Lesions: no lesions Rashes: no rashes Neuro General: patient alert, patient awake and patient oriented x3 Cognition: normal cognition Speech: speech normal Gait: normal gait Extrem General: normal to inspection and capillary refill normal Psych Appearance: grossly normal and well kempt Scores GCS Accident coma scale eye opening: Spontaneous Sha coma scale verbal response: Orientated Sha coma scale motor response: Obey commands Sha coma scale total score: 15 Course Orders Ordered: ED Orders 06/20/20 19:05 EKG-12 Lead Stat 06/20/20 19:08 Complete Blood Count AUTO DIFF Stat Comprehensive Metabolic Panel Stat Lactate (Lactic Acid) Stat Lipase Stat Procalcitonin Stat 06/20/20 19:12 XR chest 1V Stat RT Consult Eval and Treat Now 06/20/20 19:37 Blood Culture Stat 06/20/20 19:40 Urine Culture Stat Urine Microscopic Stat Discontinued Medications Sodium Chloride (Normal Saline 0.9%) 1,000 mls @ 1,000 mls/hr IV BOLUS ONE Stop: 06/20/20 20:11 Last Infusion: 06/20/20 21:29 Dose: 0 mls/hr Documented by: Admin: 06/20/20 19:22 Dose: 1,000 mls/hr Documented by: EPHRAIM Vital Signs Vital signs: Vital Signs - 8 hr 06/20/20 18:51 06/20/20 19:06 06/20/20 19:30 Temperature 98.2 F Pulse Rate 87 91 H 95 H Respiratory Rate 15 Blood Pressure 150/67 H Pulse Oximetry 100 100 82 L 06/20/20 20:00 06/20/20 20:16 06/20/20 20:30 Temperature Pulse Rate 86 85 88 Respiratory Rate 22 33 H 23 Blood Pressure 126/67 125/80 Pulse Oximetry 98 100 97 06/20/20 21:00 Temperature Pulse Rate 84 Respiratory Rate 23 Blood Pressure 120/56 L Pulse Oximetry 99 Medical Decision Making Lab Data Lab results reviewed: Yes I reviewed the patient's lab results. Result diagrams: 06/20/20 19:08 06/20/20 19:08 Labs: Lab Results 06/20/20 06/20/20 06/20/20 Range/Units 19:08 19:08 19:08 WBC 8.4 (4.5-11.0) X10^3/uL RBC 4.18 (4.0-5.2) X10^6/uL Hgb 10.8 L (12.0-16.0) g/dL Hct 33.5 L (36-46) % MCV 80.3 (80-100) fL MCH 25.8 L (26-34) PG MCHC 32.1 (30-36) % RDW 15.0 H (11.6-14.8) % Plt Count 459 H (150-400) X10^3/uL Neut % (Auto) 60.7 (50-75) % Lymph % (Auto) 25.0 (25-40) % Woodson % (Auto) 9.2 (3-14) % Eos % (Auto) 3.8 (2-4) % Baso % (Auto) 1.3 (0-2) % Neut # (Auto) 5100 (3357-6154) /uL Lymph # (Auto) 2100 (3389-4980) /uL Woodson # (Auto) 800 (0-900) /uL Eos # (Auto) 300 (0-450) /uL Baso # (Auto) 100 (0-100) /uL Sodium 135 L (137-145) mmol/L Potassium 3.4 (3.4-5.1) mmol/L Chloride 101 (98-107) mmol/L Carbon Dioxide 31 (22-32) mmol/L BUN 16 (7-17) mg/dL Creatinine 1.28 H (0.52-1.04) mg/dL Estimated GFR 41.9 L (>60) mL/min BUN/Creatinine Ratio 12.5 (6-22) Glucose 98 (80-110) mg/dL Lactate (0.7-2.1) mmol/L Calcium 9.0 (8.4-10.2) mg/dL Total Bilirubin 0.4 (0.2-1.3) mg/dL AST 25 (14-36) IU/L ALT 20 (<35) IU/L Alkaline Phosphatase 127 H (38-126) U/L Total Protein 7.8 (6.3-8.2) g/dL Albumin 4.1 (3.5-5.0) g/dL Globulin 3.7 (1.7-4.1) g/dL Albumin/Globulin Ratio 1.1 (1.0-2.8) Lipase 254 (23-300) U/L Procalcitonin < 0.05 (<0.5) ng/mL Urine RBC (0-5/HPF) Urine WBC (0-5/HPF) Ur Squamous Epith Cells (0-5/HPF) Amorphous Sediment Urine Bacteria (None) Ur Culture Indicated? 06/20/20 06/20/20 Range/Units 19:08 19:40 WBC (4.5-11.0) X10^3/uL RBC (4.0-5.2) X10^6/uL Hgb (12.0-16.0) g/dL Hct (36-46) % MCV (80-100) fL MCH (26-34) PG MCHC (30-36) % RDW (11.6-14.8) % Plt Count (150-400) X10^3/uL Neut % (Auto) (50-75) % Lymph % (Auto) (25-40) % Woodson % (Auto) (3-14) % Eos % (Auto) (2-4) % Baso % (Auto) (0-2) % Neut # (Auto) (6685-0951) /uL Lymph # (Auto) (8399-0587) /uL Woodson # (Auto) (0-900) /uL Eos # (Auto) (0-450) /uL Baso # (Auto) (0-100) /uL Sodium (137-145) mmol/L Potassium (3.4-5.1) mmol/L Chloride (98-107) mmol/L Carbon Dioxide (22-32) mmol/L BUN (7-17) mg/dL Creatinine (0.52-1.04) mg/dL Estimated GFR (>60) mL/min BUN/Creatinine Ratio (6-22) Glucose (80-110) mg/dL Lactate 1.0 (0.7-2.1) mmol/L Calcium (8.4-10.2) mg/dL Total Bilirubin (0.2-1.3) mg/dL AST (14-36) IU/L ALT (<35) IU/L Alkaline Phosphatase (38-126) U/L Total Protein (6.3-8.2) g/dL Albumin (3.5-5.0) g/dL Globulin (1.7-4.1) g/dL Albumin/Globulin Ratio (1.0-2.8) Lipase (23-300) U/L Procalcitonin (<0.5) ng/mL Urine RBC None seen (0-5/HPF) Urine WBC 5-10/hpf H (0-5/HPF) Ur Squamous Epith Cells 1-5 /hpf (0-5/HPF) Amorphous Sediment 1+ Urine Bacteria Occasional (0-1) D (None) Ur Culture Indicated? Specimen cultured Urine Dip Bedside Urine Glucose Negative Bedside Urine Bilirubin - Negative Bedside Urine Ketone - Negative Urine Specific Winnie 1.010 Bedside Urine Occult Blood - Negative Bedside Urine pH 6.0 Bedside Urine Protein - Negative Bedside Urine Urobilinogen - Negative Bedside Urine Nitrite - Negative Bedside Urine Leukocytes - Negative Esterase Point of care testing: Urine Dip Bedside Urine Glucose Negative Bedside Urine Bilirubin - Negative Bedside Urine Ketone - Negative Urine Specific Winnie 1.010 Bedside Urine Occult Blood - Negative Bedside Urine pH 6.0 Bedside Urine Protein - Negative Bedside Urine Urobilinogen - Negative Bedside Urine Nitrite - Negative Bedside Urine Leukocytes - Negative Esterase ECG Data Attestation: I personally reviewed and interpreted this ECG as follows: Prior ECG tracings: not available for review Interpretation: Sinus rhythm Ventricular rate 83 Normal axis Normal QRS Normal QTC No ST T wave changes MDM Narrative Medical decision making narrative: Comparison of the patient's labs today with yesterday shows the leukocytosis she had yesterday is now resolved. Her kidney function is at baseline. Her urinalysis today is not convincing for a urinary tract infection however yesterday she did have bacteria in her urine. She did have a urine culture drawn at that time and this pending. She is currently on antibiotics as prescribed by her urologist. Patient able to ambulate around the emergency department. Low suspicion for sepsis given her history and physical exam and her labs. She is currently taking Lyrica and it was increased recently. This is renally cleared and should be dose adjusted based on her creatinine clearance which given her creatinine clearance today needs to be done. She potentially is on 2 high dose of Lyrica. Had a long discussion with her and her daughter was at bedside regarding this. She will decrease her Lyrica to 150 mg 3 times a day from 200 mg 3 times a day. She is then going to contact her prescribing provider tomorrow to discuss any further dosing adjustments this. Will wait until the urine culture results from yesterday and she was instructed to contact her urologist to see whether not she needs to change in medications. She was given return precautions and follow-up instructions. I have low suspicion for CVA or TIA. She expressed understanding and agreement. Discharge Plan Departure Patient Disposition: Home Clinical Impression: Dysuria, Unsteadiness Instructions: DI for Dysuria -- Adult Activity Restrictions/Additional Instructions: I do recommend that you continue with the antibiotics due your urine culture from yesterday results. Follow the directions by your urologist regarding this. It also appears that given your kidney function today your Lyrica dose may be too much. I recommend that you decrease it to 150 mg like we discussed. I also recommend that you contact the provider who is prescribing this for you to discuss further reductions if needed. Return to the emergency department for any other new or worsening symptoms Prescriptions: No Action nitrofurantoin macrocrystal 50 mg capsule 50 mg PO BEDTIME Qty: 30 RF: 1 Hold Instructions: per pt/MD cyclobenzaprine 10 mg tablet 10 mg PO BEDTIME Qty: 30 RF: 2 valacyclovir 1 gram tablet See Rx Instructions .ROUTE .COMPLEX Qty: 90 RF: 3 pregabalin [Lyrica] 150 mg capsule See Rx Instructions .ROUTE .COMPLEX Qty: 90 RF: 3 levothyroxine 75 mcg tablet 75 mcg PO DAILY Qty: 90 RF: 1 losartan-hydrochlorothiazide [Hyzaar] 100-25 mg tablet 1 tab PO QDAY Qty: 90 RF: 3 zolpidem 10 mg tablet See Rx Instructions .ROUTE .COMPLEX Qty: 30 RF: 0 Referrals: Kam Farr MD [Primary Care Provider] -
[2020-06-20 19:48] LABS: Procalcitonin < 0.05 ng/mL (<0.5)
[2020-06-20 19:50] LABS: RBC Urine None Seen (0-5/HPF)
[2020-06-20 20:02] LABS: Amorphous Sediment Urine 1+; Bacteria Urine Occasional (0-1); Culture Indicated Urine Specimen Cultured; Squamous Epithelial Cell Urine 1-5 /HPF (0-5/HPF); WBC Urine 5-10/HPF (0-5/HPF)
== END 2020-06-20 21:55 | disposition home or self-care (01) ==
PROVIDERS: Emergency Provider Emergency Medicine; PCP Family Medicine
DX: R30.0 Dysuria (principal); R26.81 Unsteadiness on feet; R10.9 Unspecified abdominal pain; I10 Essential (primary) hypertension; R07.9 Chest pain, unspecified
CPT/HCPCS: 36415; 71045; 80053; 81003; 81015; 83605; 83690; 84145; 85025; 87040; 87077; 87086; 87147; 93005; 96360; 96361; 99281; 99284

== ENCOUNTER → 2020-07-24 15:38 | Outpatient (CLI) | payer OTHER, MEDICARE, SELFPAY ==
[2020-07-24 16:50] LABS: Alanine Aminotransferase 19 IU/L (<35); Albumin Globulin Ratio 1.1 (1.0-2.8); Alkaline Phosphatase 114 U/L (38-126); Aspartate Aminotransferase 26 IU/L (14-36); BUN Creatinine Ratio 12.6 (6-22); Bilirubin Total 0.1 mg/dL (0.2-1.3); Blood Urea Nitrogen 14 mg/dL (7-17); Calcium 8.8 mg/dL (8.4-10.2); Carbon Dioxide 30 mmol/L (22-32); Chloride 102 mmol/L (98-107); Estimated Glomerular Filt Rate 49.3 mL/min (>60); Globulin 3.5 g/dL (1.7-4.1); Glucose 104 mg/dL (80-110); HEMOLYSIS < 15 (0-50); Potassium 3.4 mmol/L (3.4-5.1); Sodium 137 mmol/L (137-145); Total Protein 7.5 g/dL (6.3-8.2)
[2020-07-25 12:09] LABS: SARS-CoV19- IgM Negative (Negative)
[2020-08-01 13:02] LABS: SARS CoV19 IgG Negative
== END ==
PROVIDERS: PCP Family Medicine; Referring Provider Urology; Visit Provider Family Medicine
DX: D30.02 Benign neoplasm of left kidney (principal); Z20.822 Contact with and (suspected) exposure to COVID-19
CPT/HCPCS: 36415; 80053; 86769

== ENCOUNTER → 2020-12-09 16:54 | Outpatient (CLI) | payer OTHER, MEDICARE, SELFPAY ==
[2020-12-09 18:09] LABS: Add Manual Diff / Slide Review NO; Basophils Absolute Auto 100 /uL (0-100); Basophils Percent Auto 2.1 % (0-2); Eosinophils Absolute Auto 200 /uL (0-450); Eosinophils Percent Auto 3.6 % (2-4); Hematocrit 38.3 % (36-46); Hemoglobin 11.8 g/dL (12.0-16.0); Lymphocytes Absolute Auto 1800 /uL (1100-4500); Lymphocytes Percent Auto 27.6 % (25-40); Mean Corpuscular HGB Conc 30.9 % (30-36); Mean Corpuscular Hemoglobin 24.2 PG (26-34); Mean Corpuscular Volume 78.5 fL (80-100); Monocytes Absolute Auto 400 /uL (0-900); Monocytes Percent Auto 5.6 % (3-14); Neutrophils Absolute Auto 4000 /uL (1500-7000); Neutrophils Percent Auto 61.1 % (50-75); Platelet Count 421 X10^3/uL (150-400); Red Blood Cell Count 4.88 X10^6/uL (4.0-5.2); Red Cell Distribution Width 15.8 % (11.6-14.8); White Blood Cell Count 6.5 X10^3/uL (4.5-11.0)
[2020-12-09 18:19] LABS: Alanine Aminotransferase 26 IU/L (<35); Albumin 4.3 g/dL (3.5-5.0); Albumin Globulin Ratio 1.3 (1.0-2.8); Alkaline Phosphatase 101 U/L (38-126); Aspartate Aminotransferase 33 IU/L (14-36); BUN Creatinine Ratio 8.6 (6-22); Bilirubin Total 0.3 mg/dL (0.2-1.3); Blood Urea Nitrogen 10 mg/dL (7-17); Carbon Dioxide 26 mmol/L (22-32); Chloride 97 mmol/L (98-107); Estimated Glomerular Filt Rate 46.9 mL/min (>60); Globulin 3.3 g/dL (1.7-4.1); Glucose 156 mg/dL (80-110); HEMOLYSIS < 15 (0-50); Sodium 137 mmol/L (137-145); Total Protein 7.6 g/dL (6.3-8.2)
[2020-12-09 18:54] LABS: Ferritin 6 ng/mL (11-264)
[2020-12-09 19:08] LABS: Vitamin B12 532 pg/mL (239-931)
[2020-12-09 20:01] LABS: HEMOLYSIS < 15 (0-50); Iron 30 ug/dL (37-170)
[2020-12-09 20:11] LABS: Percent Iron Saturation 6 % (15-50); Total Iron Binding Capacity 470 ug/dL (265-497); Transferrin 379 mg/dL (206-381)
== END ==
PROVIDERS: PCP Family Medicine; Referring Provider Family Medicine; Visit Provider Family Medicine
DX: D64.9 Anemia, unspecified (principal); R00.0 Tachycardia, unspecified
CPT/HCPCS: 36415; 80053; 82607; 82728; 83540; 83550; 84443; 85025

== ENCOUNTER → 2020-12-11 17:10 | Outpatient (CLI) | payer OTHER, MEDICARE, SELFPAY ==
[2020-12-11 18:16] LABS: Appearance Urine UA SL CLOUDY; Bilirubin Urine UA NEGATIVE (NEGATIVE); Color Urine UA YELLOW; Glucose Urine UA TRACE g/dL (Negative); Ketones Urine UA NEGATIVE (NEGATIVE); Leukocyte Esterase Urine UA 2+ (NEGATIVE); Nitrite Urine UA NEGATIVE (Negative); Occult Blood Urine UA 1+ (Negative); Protein Urine UA NEGATIVE (Negative); Urobilinogen Urine UA 0.2 E.U./dL (0.2)
[2020-12-11 19:07] LABS: Bacteria Urine Moderate (10-30); Culture Indicated Urine Specimen Cultured; RBC Urine 1-5/HPF (0-5/HPF); Squamous Epithelial Cell Urine 1-5 /HPF (0-5/HPF); Transitional Epi Cells Urine 0-1/HPF (0-5/HPF); WBC Urine 30-100/HPF (0-5/HPF)
== END ==
PROVIDERS: PCP Family Medicine; Referring Provider Family Medicine; Visit Provider Family Medicine
DX: N39.0 Urinary tract infection, site not specified (principal)
CPT/HCPCS: 81001; 87086

== ENCOUNTER → 2021-02-06 15:47 | Outpatient (CLI) | payer OTHER, MEDICARE, SELFPAY | PROVIDERS: PCP Family Medicine; Referring Provider Family Medicine; Visit Provider Family Medicine | DX: N39.0 Urinary tract infection, site not specified (principal) | CPT/HCPCS: 87086 ==

== ENCOUNTER → 2021-02-19 15:02 | Outpatient (CLI) | payer OTHER, MEDICARE, SELFPAY ==
[2021-02-19 15:31] LABS: COVID19 -Nasal RAPID Negative (Negative)
== END ==
PROVIDERS: PCP Family Medicine; Visit Provider Student in an Organized Health Care Education/Training Program
DX: Z20.822 Contact with and (suspected) exposure to COVID-19 (principal); N39.0 Urinary tract infection, site not specified; R30.0 Dysuria; R53.83 Other fatigue
CPT/HCPCS: 81001; 87635

== ENCOUNTER → 2021-02-19 15:08 | Outpatient (CLI) | payer OTHER, MEDICARE, SELFPAY ==
[2021-02-19 15:56] LABS: Appearance Urine UA CLEAR; Bacteria Urine None Seen; Bilirubin Urine UA NEGATIVE (NEGATIVE); Glucose Urine UA NEGATIVE (Negative); Ketones Urine UA NEGATIVE (NEGATIVE); Leukocyte Esterase Urine UA 3+ (NEGATIVE); Nitrite Urine UA NEGATIVE (Negative); Occult Blood Urine UA 1+ (Negative); Protein Urine UA NEGATIVE (Negative); RBC Urine None Seen (0-5/HPF); Urobilinogen Urine UA 0.2 E.U./dL (0.2)
[2021-02-19 16:30] LABS: pH Urine UA 5.5 (4.5-8.0)
[2021-02-19 16:32] LABS: Color Urine UA YELLOW; Culture Indicated Urine Cult Not Indicated; Squamous Epithelial Cell Urine 10-30 /HPF (0-5/HPF); WBC Urine 5-10/HPF (0-5/HPF)
== END ==
PROVIDERS: PCP Family Medicine; Referring Provider Family Medicine; Visit Provider Family Medicine
DX: N39.0 Urinary tract infection, site not specified (principal); R30.0 Dysuria; R53.83 Other fatigue
CPT/HCPCS: 81001

== ENCOUNTER 2021-02-20 06:19 | Day surgery (SDC) | payer OTHER, MEDICARE, SELFPAY ==
[2021-02-18 11:37] VITALS: BMI 36.3
[2021-02-20] VITALS (21 sets, daily range): BP systolic 100–152; BP diastolic 58–91; PULSE 84–101; RESP 6–18; TEMP 36.2–36.8; O2SAT 91–99; BMI 36.3
[2021-02-20] MEDS: LACTATED RINGERS 1,000 ML 42 ML IV ×2 (07:18→09:28)
--- NOTE | 2021-02-20 07:33 | PM.PREOP ---
Pre-operative Note Interval Note History & Physical reviewed/Exam performed by Physician: Yes Changes to H&P: No
--- NOTE | 2021-02-20 07:59 | SUR.PREOP ---
0735: Pt placed on teletypesetter monitor VS taken )2 per nasal cannula placed at 2/l. Midazolam 2mg and Fentanyl 100mcg IV given in divided doses. Block attempted, ineffective. Pt to OR with [facility]. Left unit in stable condition.
[2021-02-20] MEDS: CEFAZOLIN 1 GM VIAL 2 GM IV (08:13)
--- NOTE | 2021-02-20 08:23 | SUR.OPER ---
Supine on padded OR bed, head on pillow, Right arm on large padded arm board controlled by surgeon, left arm secured on padded arm board at patient's side, legs uncrossed, safety belt at thigh, tape over blanket over lower legs.
[2021-02-20] MEDS: BUPIVACAINE 0.25% W/ EPI 30 ML VIAL INJ (08:34)
[2021-02-20] MEDS: fentaNYL 100 MCG/2 ML INJ 50 MCG IV ×2 (08:40→08:42)
[2021-02-20] MEDS: MIDAZOLAM 2 MG/2 ML VIAL IV ×2 (08:40→08:42)
--- NOTE | 2021-02-20 10:10 | SUR.PHASEI ---
pt to PACU with Dr Valdovinos and RN. Pt breathing unassisted. Oxygen placed at 4L NC.
--- NOTE | 2021-02-20 10:19 | P.OP_ITS ---
Operative Date/Time/Diagnoses Date of procedure: 02/20/21 Time of procedure: 08:00 Pre-op diagnosis: Right distal radius fracture as well as right scapholunate ligament rupture Post-op diagnosis: same Procedure & Clinicians Procedure: Right open reduction internal fixation of a intra-articular distal radius fracture as well as scapholunate ligament reconstruction Same procedure as scheduled: Yes Indications: Displaced intra-articular distal radius fracture as well as widening of the scapholunate interval. Surgeon: Senthil Kim [employer] Salesperson: Arya Molina Anesthesia Type: General Operative Notes Findings: Intra-articular fracture involving the radial styloid with depression as well as displacement resulting in an articular step-off. Widening of the scapholunate ligament but still intact fibers of the dorsal scapholunate ligament. No sign of any intra-articular arthritic changes. Closure Type: primary Prosthetic devices, grafts, tissues, transplants, or devices: Three Arthrex anchors and a TriMed radial styloid pin plate Applied: implant(s) Estimated Blood Loss (mL): 10 Tourniquet time (min): 104 Procedure in detail: On date of service, patient was met in the holding area where his operative site was signed and witnessed by the OR staff. The surgery is once again discussed with the patient in remaining questions or concerns he had were answered fully. Patient was taken back to the operating theater and placed on the operating table in a supine position. Great care was taken to ensure that all bony prominences were appropriately padded. A well-padded tourniquet was placed up along the upper extremity. Time-out was performed verifying patient's name, procedure, and operative site. The limb was prepped and draped in the normal sterile fashion. An Esmarch was used to exsanguinate the limb the tourniquet was turned up to 250 mm of mercury. Longitudinal incision was made. The incision was ulnar to the Huong's tubercle. It was centered over the radiocarpal joint. Fifteen blade was used to incise through skin and fascial tissue. Sharp dissection was continued with a 15 blade until the extensor mechanism was identified. Branches of the superficial radial nerve were identified and protected as well as branches coming off ulnarly. Once we had the extensor mechanism identified and was split allowing a release of the EPL tendon. This was also done ulnarly opening up 4th extensor compartment and then done radially opening up the 2nd extensor compartment. This allowed us to retract the extensor tendons. Next, the radiocarpal joint was opened preserving the carpal ligaments. This gave us good visualization of the scapholunate interval. There was widening at the scapholunate interval but still some intact fibers of the scapholunate ligament. But no sign of any radiocarpal arthritic process. K-wire was placed in to the scaphoid and 1 into the lunate and the scapholunate interval was reduced. There was quite a bit of flexion of the scaphoid which was reduced as well as extension of the lunate. These 2 K-wires were then held together to close down any diastasis. Another K-wire was placed between the scaphoid and the capitate to keep it from falling back into flexion. Next, 3 guidewires were placed 1 in the lunate and 2 in the scaphoid 1 by the scapholunate interval and then 1 very distally. C-arm used to verify reduction of the scapholunate interval as well as guidewire positioning. Once we were satisfied with the positioning cannulated drill was used to drill over the 3 guidewires. The bony hole tunnels were then copiously irrigated removing any remaining tissue. We then turned our attention back to our tendon graft. This plus suture tape was tenodesed into the 1st hole in the scaphoid. Then under tension this was then placed into the 2nd hole into the lunate going across the scapholunate interval 18 OD seen the attendant as well as the graft providing a solid repair of the scapholunate interval. Next, the tendon and suture material were then brought up to the distal hole into the scaphoid and retain noticed there to once again help keep the scaphoid from falling into flexion. C-arm was brought in to verify maintenance of reduction. The 2 reducing K-wires were removed and there was no gapping at the scapholunate interval once those K-wires were removed. We were able to flex and extend the wrist with no abnormal motion of the scapholunate interval been no sign of any diastasis. Good signs of a solid repair of the scapholunate interval. The wound was then copiously irrigated. We then turned our attention to the radial styloid fracture. Using the same incision for the scapholunate interval we had good access to the radial styloid. A [place] elevator was used to elevate the depressed fragment and a 2 point reduction forceps was used for reduction. Next a radial pin plate was placed and held provisionally with a K-wire. C-arm was brought in to evaluate reduction. Pin plate was used to help with the overall reduction of the radial styloid fragment. This was secured with nonlocking cortical screws as well as 2 K-wires. Final x-rays were obtained. The capsule was closed and repaired using 3-0 FiberWire. The extensor mechanism was closed with Vicryl recreating the 4th extensor compartment as well as the 3rd and 2nd extensor compartments. The rest of the wound was closed in layered fashion. Patient's hand and arm was cleaned dried and dressed. Patient was placed into a splint and taken to the PACU in stable condition. Post-operative Condition: stable Disposition: PACU Plan for aftercare: Patient follow-up postoperative protocol for a scapholunate ligament reconstruction. Patient will be in a splint which will be converted over to a cast. Patient will be immobilized for 6 weeks. Pin will be removed at that 6 week follow-up.
[2021-02-20] MEDS: fentaNYL 100 MCG/2 ML INJ IV ×3 (10:31→11:57)
[2021-02-20] MEDS: OXYCODONE IR 5 MG TABLET PO ×2 (10:35→11:57)
--- NOTE | 2021-02-20 10:59 | SUR.PHASEI ---
Dr Vazquez notified of patient pain 02/25 to right wrist. See new order for Toradol.
[2021-02-20] MEDS: KETOROLAC 30 MG/ML VIAL IV (11:09)
--- NOTE | 2021-02-20 11:28 | SUR.PHASEI ---
Patient transferred to [facility] room 6 via stretcher. SBAR report given to RN at bedside. Call light in reach.
[2021-02-20] MEDS: hydrOXYzine pamoate 25 MG CAPSULE PO (12:11)
--- NOTE | 2021-02-20 12:39 | SUR.PHASEII ---
Pt arrived in Phase II calling her pain 7/10 and crying. Monitoring was restarted and fentanyl 25mcg IV and 5mg percolone were administered for pain relief. After about 30minutes pt was still reporting discomfort so order was received for 25mg po vistaril to given. Pt has been tolerating orals consisting water and applesauce without any N/V. Pain seems to have eased and is now between 5 or 6.
== END 2021-02-20 14:21 | disposition home or self-care (01) ==
PROVIDERS: PCP Family Medicine; Referring Provider Orthopaedic Surgery; Visit Provider Orthopaedic Surgery
PROC: (CPT 25320; principal; 2021-02-20 07:45)
PROC: (CPT 25608; 2021-02-20 07:45)
DX: S52.511A Displaced fracture of right radial styloid process, initial encounter for closed fracture (principal); S63.391A Traumatic rupture of other ligament of right wrist, initial encounter; V49.40XA Driver injured in collision with unspecified motor vehicles in traffic accident, initial encounter; I10 Essential (primary) hypertension; M79.7 Fibromyalgia
CPT/HCPCS: 25608; 25320; J0690; J1100; J1885; J2250; J2704; J2765; J3010

== ENCOUNTER 2021-02-22 16:23 | Emergency (ER) | payer OTHER, MEDICARE, SELFPAY ==
[2021-02-22 16:30] VITALS: BP 129/83; PULSE 111; RESP 16; TEMP 36.6; O2SAT 98; BMI 35.9
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
--- NOTE | 2021-02-22 16:43 | DI.RAD.S_ITS ---
PROCEDURE: XR WRIST RT MIN 3V INDICATIONS: pain, swelling, recent surgery TECHNIQUE: 4 views of the wrist were acquired. COMPARISON: [facility], CR, XR WRIST 3+ VIEWS RIGHT, 01/28/2021, 14:57. [facility], CT, CT WRIST RIGHT WITHOUT CONTRAST, 01/29/2021, 10:15. [facility] [place], CR, XR WRIST 3+ VIEWS RIGHT, 02/17/2021, 8:50. FINDINGS: Bones: Postoperative changes are seen, with a pin seen across the proximal carpal bones. The lunate has been previously removed. Plate and screw fixation is seen across the radial styloid fracture. No findings of hardware failure or hardware loosening are seen. Soft tissues: Generalized soft tissue swelling is seen. IMPRESSION: Generalized soft tissue swelling is seen. Unremarkable postoperative hardware. Dictated by: George Ramirez M.D. on 02/22/2021 at 16:10 Approved by: George Ramirez M.D. on 02/22/2021 at 16:11
[2021-02-22 19:00] VITALS: BP 109/70; PULSE 69; RESP 18; O2SAT 97
== END 2021-02-22 19:00 | disposition home or self-care (01) ==
PROVIDERS: Emergency Provider Emergency Medicine; PCP Family Medicine
DX: G89.18 Other acute postprocedural pain (principal); M25.531 Pain in right wrist
CPT/HCPCS: 73110; 99281; 99283

== ENCOUNTER 2021-02-26 16:43 | Emergency (ER) | payer OTHER, MEDICARE, SELFPAY ==
[2021-02-26 16:51] VITALS: BP 133/77; PULSE 116; RESP 18; TEMP 37; O2SAT 96; BMI 35.9
[2021-02-26 17:08] VITALS: BP 128/75; PULSE 110; O2SAT 95
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
--- NOTE | 2021-02-26 17:19 | DI.RAD.S_ITS ---
PROCEDURE: XR CHEST 1V INDICATIONS: Suspected sepsis TECHNIQUE: One view of the chest was acquired. COMPARISON: [facility], CR, XR CHEST 1V, 06/20/2020, 19:31. FINDINGS: Surgical changes and devices: None. Lungs and pleura: Lungs are clear. No pleural effusions or pneumothorax. Mediastinum: Mediastinal contours appear normal. Heart size is normal. Moderate-sized hiatal hernia. Bones and chest wall: No suspicious bony lesions. Overlying soft tissues appear unremarkable. IMPRESSION: No acute cardiopulmonary process demonstrated radiographically. Dictated by: Kam Melendrez M.D. on 02/26/2021 at 17:58 Approved by: Kam Melendrez M.D. on 02/26/2021 at 17:58
[2021-02-26 17:25] LABS: Add Manual Diff / Slide Review NO; Basophils Absolute Auto 100 /uL (0-100); Basophils Percent Auto 1.1 % (0-2); Eosinophils Absolute Auto 300 /uL (0-450); Eosinophils Percent Auto 4.1 % (2-4); Hematocrit 34.1 % (36-46); Lymphocytes Absolute Auto 1500 /uL (1100-4500); Lymphocytes Percent Auto 19.7 % (25-40); Mean Corpuscular HGB Conc 32.2 % (30-36); Mean Corpuscular Hemoglobin 26.8 PG (26-34); Mean Corpuscular Volume 83.3 fL (80-100); Monocytes Absolute Auto 500 /uL (0-900); Monocytes Percent Auto 6.3 % (3-14); Neutrophils Absolute Auto 5400 /uL (1500-7000); Neutrophils Percent Auto 68.8 % (50-75); Platelet Count 392 X10^3/uL (150-400); Red Cell Distribution Width 17.2 % (11.6-14.8); White Blood Cell Count 7.8 X10^3/uL (4.5-11.0)
[2021-02-26 17:30] VITALS: BP 104/63; PULSE 109; RESP 23; O2SAT 93
[2021-02-26] MEDS: SODIUM CHLORIDE 0.9% 1,000 ML 1000 ML IV (17:33)
[2021-02-26 17:37] LABS: Lactate (Lactic Acid) 2.7 mmol/L (0.7-2.1)
[2021-02-26 17:38] LABS: Alanine Aminotransferase 31 IU/L (<35); Albumin 3.6 g/dL (3.5-5.0); Albumin Globulin Ratio 1.2 (1.0-2.8); Alkaline Phosphatase 103 U/L (38-126); Aspartate Aminotransferase 33 IU/L (14-36); BUN Creatinine Ratio 8.4 (6-22); Bilirubin Total 0.4 mg/dL (0.2-1.3); Blood Urea Nitrogen 8 mg/dL (7-17); Calcium 8.7 mg/dL (8.4-10.2); Carbon Dioxide 29 mmol/L (22-32); Chloride 99 mmol/L (98-107); Estimated Glomerular Filt Rate 58.9 mL/min (>60); Globulin 3.1 g/dL (1.7-4.1); Glucose 145 mg/dL (80-110); HEMOLYSIS < 15 (0-50); Lipase 37 U/L (23-300); Potassium 3.5 mmol/L (3.4-5.1); Sodium 134 mmol/L (137-145); Total Protein 6.7 g/dL (6.3-8.2)
[2021-02-26 17:55] LABS: Procalcitonin 0.06 ng/mL (<0.5)
[2021-02-26 18:00] VITALS: BP 111/69; PULSE 103; O2SAT 94
[2021-02-26 18:30] VITALS: BP 119/61; PULSE 96; RESP 13; O2SAT 92
[2021-02-26] MEDS: cefTRIAXone 2,000 MG in SODIUM CHLORIDE 0.9% 100 ML 200 ML IV (18:36)
[2021-02-26 19:22] LABS: Reflexed Lactate in 2 Hours Y
[2021-02-26 19:44] VITALS: BP 119/55; PULSE 86; RESP 19; O2SAT 98
[2021-02-26 19:50] LABS: Lactate 2HR (Lactic Acid Rflx) 1.1 mmol/L (0.7-2.1)
== END 2021-02-26 20:06 | disposition home or self-care (01) ==
PROVIDERS: Emergency Provider Physician Assistant; PCP Family Medicine
DX: L03.113 Cellulitis of right upper limb (principal)
CPT/HCPCS: 36415; 71045; 80053; 83605; 83690; 84145; 85025; 87040; 93005; 96361; 96365; 99284; J0696

== ENCOUNTER 2021-03-05 15:29 | Emergency (ER) | payer OTHER, MEDICARE, SELFPAY ==
[2021-03-05] VITALS (12 sets, daily range): BP systolic 118–135; BP diastolic 63–80; PULSE 91–105; RESP 6–22; TEMP 37; O2SAT 89–100
--- NOTE | 2021-03-05 15:41 | DI.RAD.S_ITS ---
PROCEDURE: XR CHEST 1V INDICATIONS: Chest pain TECHNIQUE: One view of the chest was acquired. COMPARISON: [facility], CT, CT ABDOMEN PELVIS W CON, 06/11/2020, 8:33. [facility], CR, XR CHEST 1V, 02/26/2021, 17:30. FINDINGS: Surgical changes and devices: None. Lungs and pleura: Lungs are clear. No pleural effusions or pneumothorax. Mediastinum: Mediastinal contours appear normal. Heart size is normal. Hiatal hernia redemonstrated. Bones and chest wall: No suspicious bony lesions. Overlying soft tissues appear unremarkable. IMPRESSION: No acute cardiopulmonary process demonstrated radiographically. Dictated by: Kam Melendrez M.D. on 03/05/2021 at 15:57 Approved by: Kam Melendrez M.D. on 03/05/2021 at 15:58
--- NOTE | 2021-03-05 15:48 | PC.NURSE ---
Pt had recent surgery on R FA by Dr Leung 02/20/21-- presents today with SOB and chest pressure. HR slightly elevated at 104.
[2021-03-05 15:49] LABS: Add Manual Diff / Slide Review NO; Basophils Absolute Auto 100 /uL (0-100); Basophils Percent Auto 1.3 % (0-2); Eosinophils Absolute Auto 200 /uL (0-450); Eosinophils Percent Auto 2.6 % (2-4); Hematocrit 37.3 % (36-46); Lymphocytes Absolute Auto 1500 /uL (1100-4500); Lymphocytes Percent Auto 19.8 % (25-40); Mean Corpuscular HGB Conc 32.2 % (30-36); Mean Corpuscular Hemoglobin 26.6 PG (26-34); Mean Corpuscular Volume 82.7 fL (80-100); Monocytes Absolute Auto 500 /uL (0-900); Monocytes Percent Auto 6.2 % (3-14); Neutrophils Absolute Auto 5400 /uL (1500-7000); Neutrophils Percent Auto 70.1 % (50-75); Platelet Count 444 X10^3/uL (150-400); Red Blood Cell Count 4.51 X10^6/uL (4.0-5.2); Red Cell Distribution Width 16.2 % (11.6-14.8); White Blood Cell Count 7.8 X10^3/uL (4.5-11.0)
[2021-03-05 15:58] LABS: Alanine Aminotransferase 35 IU/L (<35); Albumin 4.2 g/dL (3.5-5.0); Albumin Globulin Ratio 1.3 (1.0-2.8); Alkaline Phosphatase 122 U/L (38-126); Aspartate Aminotransferase 34 IU/L (14-36); BUN Creatinine Ratio 10.5 (6-22); Bilirubin Total 0.3 mg/dL (0.2-1.3); Blood Urea Nitrogen 10 mg/dL (7-17); Calcium 9.3 mg/dL (8.4-10.2); Carbon Dioxide 30 mmol/L (22-32); Chloride 102 mmol/L (98-107); Creatine Kinase 35 U/L (30-135); Estimated Glomerular Filt Rate 58.9 mL/min (>60); Globulin 3.3 g/dL (1.7-4.1); Glucose 116 mg/dL (80-110); HEMOLYSIS < 15 (0-50); Lipase 51 U/L (23-300); Potassium 3.6 mmol/L (3.4-5.1); Sodium 137 mmol/L (137-145); Total Protein 7.5 g/dL (6.3-8.2)
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
[2021-03-05 16:10] LABS: Troponin I < 0.012 ng/mL (0.01-0.034)
[2021-03-05] MEDS: NITROGLYCERIN OINT 1 INCH/GM OINT...G. 0.5 INCH TOP (16:13)
[2021-03-05 16:37] LABS: D Dimer 805 ng/mL (<230)
--- NOTE | 2021-03-05 16:40 | PC.NURSE ---
Pt's sat noted to be 86% and alarming. Pt noted to be falling asleep with h/o sleep apnea. c/o intense R clavicle pain radiating to her jaw despite NTG paste. RT called for repeat EKG. Dr Zavaleta made aware.
--- NOTE | 2021-03-05 16:46 | DI.CT.S_ITS ---
PROCEDURE: CT ANGIO CHEST PE PROTOCOL INDICATIONS: Chest pain, shortness of breath, tachycardia TECHNIQUE: After the administration of intravenous contrast, 2 mm thick sections acquired from the pulmonary apices to the posterior costophrenic angles. 3-dimensional maximum intensity projection (MIP) coronal and sagittal reformats were then acquired through the thorax. For radiation dose reduction, the following was used: automated exposure control, adjustment of mA and/or kV according to patient size. COMPARISON: None. FINDINGS: Image quality: Excellent. Pulmonary arteries: Pulmonary arteries are normal in size, and demonstrate no intraluminal filling defects to suggest central pulmonary embolism. Lungs and pleura: Atelectasis scattered in periphery of bilateral lung crowder are seen. Subtle hazy ground-glass opacity in bilateral lung crowder also noted. No focal airspace opacity. No pleural effusions or pneumothorax. Central and peripheral airways are patent. Mediastinum: Heart size is normal, without pericardial effusion. No mediastinal or hilar adenopathy. Thoracic aorta is normal in caliber and enhancement. Esophagus is normal in caliber, with a moderate to large size hiatal hernia . Bones and chest wall: No suspicious bony lesions. Ribs and thoracic spine appear intact throughout. Thyroid gland is within normal limits. No axillary or supraclavicular adenopathy. Abdomen: Visualized upper abdominal solid organs appear normal in the early arterial phase of enhancement. Gallbladder is surgically absent. IMPRESSION: 1. No evidence of pulmonary emboli. No thoracic aortic aneurysm or dissection. 2. Suggestion of mild pulmonary edema and scattered atelectasis in bilateral lung crowder. 3. No mediastinal or hilar lymphadenopathy. 4. Moderate to large size hiatal hernia. Prior cholecystectomy. Dictated by: Wolf Mason M.D. on 03/05/2021 at 17:09 Approved by: Wolf Mason M.D. on 03/05/2021 at 17:11
[2021-03-05 18:01] LABS: NT-proBNP (BNP-Adult 18+) 19 pg/mL (<125)
[2021-03-05 18:29] LABS: Creatine Kinase 34 U/L (30-135)
[2021-03-05 18:42] LABS: Troponin I < 0.012 ng/mL (0.01-0.034)
== END 2021-03-05 19:30 | disposition home or self-care (01) ==
PROVIDERS: Emergency Provider Emergency Medicine; PCP Family Medicine
DX: R06.02 Shortness of breath (principal); R42 Dizziness and giddiness; R07.9 Chest pain, unspecified
CPT/HCPCS: 36415; 71045; 71275; 80053; 82550; 83690; 83880; 84484; 85025; 85379; 93005; 93010; 99284

== ENCOUNTER → 2021-03-18 16:29 | Outpatient (CLI) | payer OTHER, MEDICARE, SELFPAY ==
[2021-03-18 19:16] LABS: Appearance Urine UA CLEAR; Bilirubin Urine UA NEGATIVE (NEGATIVE); Color Urine UA YELLOW; Glucose Urine UA NEGATIVE (Negative); Ketones Urine UA NEGATIVE (NEGATIVE); Leukocyte Esterase Urine UA 2+ (NEGATIVE); Nitrite Urine UA NEGATIVE (Negative); Occult Blood Urine UA 1+ (Negative); Protein Urine UA NEGATIVE (Negative); Specific Gravity Urine UA <=1.005 (1.000-1.035); Urobilinogen Urine UA 0.2 E.U./dL (0.2)
[2021-03-18 19:28] LABS: Bacteria Urine Moderate (10-30); Culture Indicated Urine Specimen Cultured; RBC Urine 0-1/HPF (0-5/HPF); Squamous Epithelial Cell Urine 1-5 /HPF (0-5/HPF); Transitional Epi Cells Urine 1-5/HPF (0-5/HPF); WBC Urine 10-30/HPF (0-5/HPF)
== END ==
PROVIDERS: PCP Family Medicine; Referring Provider Family Medicine; Visit Provider Family Medicine
DX: R30.0 Dysuria (principal)
CPT/HCPCS: 81001; 87077; 87086; 87186

== ENCOUNTER → 2021-04-08 17:14 | Outpatient (CLI) | payer OTHER, MEDICARE, SELFPAY ==
[2021-04-08 18:13] LABS: Appearance Urine UA SL CLOUDY; Bilirubin Urine UA NEGATIVE (NEGATIVE); Color Urine UA YELLOW; Glucose Urine UA NEGATIVE (Negative); Ketones Urine UA NEGATIVE (NEGATIVE); Leukocyte Esterase Urine UA 3+ (NEGATIVE); Nitrite Urine UA NEGATIVE (Negative); Occult Blood Urine UA TRACE-LYSED (Negative); Protein Urine UA NEGATIVE (Negative); Specific Gravity Urine UA <=1.005 (1.000-1.035); Urobilinogen Urine UA 0.2 E.U./dL (0.2)
[2021-04-08 18:26] LABS: Bacteria Urine Few (2-10); Culture Indicated Urine Specimen Cultured; RBC Urine 0-1/HPF (0-5/HPF); Squamous Epithelial Cell Urine 1-5 /HPF (0-5/HPF); Transitional Epi Cells Urine 1-5/HPF (0-5/HPF); WBC Urine 30-100/HPF (0-5/HPF)
== END ==
PROVIDERS: PCP Family Medicine; Referring Provider Family Medicine; Visit Provider Family Medicine
DX: N39.0 Urinary tract infection, site not specified (principal)
CPT/HCPCS: 81001; 87086

== ENCOUNTER 2021-04-15 00:49 | Emergency (ER) | payer OTHER, MEDICARE, SELFPAY ==
[2021-04-15] VITALS (18 sets, daily range): BP systolic 122–175; BP diastolic 58–78; PULSE 77–94; RESP 10–23; TEMP 36.3; O2SAT 94–100; BMI 36.1
[2021-04-15 01:21] LABS: Appearance Urine UA CLEAR; Bilirubin Urine UA NEGATIVE (NEGATIVE); Color Urine UA YELLOW; Glucose Urine UA NEGATIVE (Negative); Ketones Urine UA NEGATIVE (NEGATIVE); Leukocyte Esterase Urine UA 2+ (NEGATIVE); Nitrite Urine UA NEGATIVE (Negative); Occult Blood Urine UA NEGATIVE (Negative); Protein Urine UA NEGATIVE (Negative); Urobilinogen Urine UA 0.2 E.U./dL (0.2)
[2021-04-15 01:24] LABS: pH Urine UA 7.5 (4.5-8.0)
[2021-04-15 01:36] LABS: Bacteria Urine Occasional (0-1); RBC Urine 0-1/HPF (0-5/HPF); Squamous Epithelial Cell Urine 0-1 /HPF (0-5/HPF); WBC Urine 5-10/HPF (0-5/HPF)
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
--- NOTE | 2021-04-15 03:48 | DI.RAD.S_ITS ---
PROCEDURE: XR CHEST 1V INDICATIONS: lightheaded TECHNIQUE: One view of the chest was acquired. COMPARISON: [facility], CR, XR CHEST 1V, 03/05/2021, 15:44. FINDINGS: Surgical changes and devices: Cholecystectomy clips right upper abdomen embolization coils are stable where visualized. Bilateral breast surgical clips are stable. Lungs and pleura: Lungs are clear. No pleural effusions or pneumothorax. Mediastinum: Mediastinal contours appear normal. Heart size is normal. Retrocardiac hiatal hernia. Bones and chest wall: No suspicious bony lesions. Overlying soft tissues appear unremarkable. IMPRESSION: No acute cardiopulmonary disease process. Dictated by: Roxanne Del Angel MD, PhD on 04/15/2021 at 8:06 Approved by: Roxanne Del Angel MD, PhD on 04/15/2021 at 8:07
[2021-04-15] MEDS: SODIUM CHLORIDE 0.9% 1,000 ML 1000 ML IV (04:23)
[2021-04-15 04:27] LABS: Alanine Aminotransferase 29 IU/L (<35); Albumin 4.1 g/dL (3.5-5.0); Albumin Globulin Ratio 1.3 (1.0-2.8); Alkaline Phosphatase 109 U/L (38-126); Aspartate Aminotransferase 29 IU/L (14-36); BUN Creatinine Ratio 13.8 (6-22); Bilirubin Total 0.5 mg/dL (0.2-1.3); Blood Urea Nitrogen 13 mg/dL (7-17); Calcium 9.2 mg/dL (8.4-10.2); Carbon Dioxide 32 mmol/L (22-32); Chloride 101 mmol/L (98-107); Creatine Kinase 40 U/L (30-135); Estimated Glomerular Filt Rate 59.6 mL/min (>60); Globulin 3.1 g/dL (1.7-4.1); Glucose 123 mg/dL (80-110); HEMOLYSIS < 15 (0-50); Lipase 69 U/L (23-300); Potassium 3.7 mmol/L (3.4-5.1); Sodium 138 mmol/L (137-145); Total Protein 7.2 g/dL (6.3-8.2)
[2021-04-15 04:35] LABS: Add Manual Diff / Slide Review NO; Basophils Absolute Auto 100 /uL (0-100); Eosinophils Absolute Auto 100 /uL (0-450); Eosinophils Percent Auto 1.4 % (2-4); Hematocrit 38.5 % (36-46); Hemoglobin 12.3 g/dL (12.0-16.0); Lymphocytes Absolute Auto 1000 /uL (1100-4500); Lymphocytes Percent Auto 11.8 % (25-40); Mean Corpuscular Hemoglobin 25.7 PG (26-34); Mean Corpuscular Volume 80.3 fL (80-100); Monocytes Absolute Auto 400 /uL (0-900); Monocytes Percent Auto 5.3 % (3-14); Neutrophils Absolute Auto 6700 /uL (1500-7000); Neutrophils Percent Auto 80.5 % (50-75); Platelet Count 423 X10^3/uL (150-400); Red Blood Cell Count 4.79 X10^6/uL (4.0-5.2); Red Cell Distribution Width 14.5 % (11.6-14.8); White Blood Cell Count 8.3 X10^3/uL (4.5-11.0)
[2021-04-15 04:39] LABS: Troponin I < 0.012 ng/mL (0.01-0.034)
[2021-04-15 04:44] LABS: Procalcitonin 0.05 ng/mL (<0.5)
--- NOTE | 2021-04-15 05:42 | PC.NURSE ---
pt stated that she felt too dizzy to stand for orthostatic vitals but she was able to pivot transfter to wheelchair and transfer again in the restroom
--- NOTE | 2021-04-15 05:56 | DI.CT.S_ITS ---
PROCEDURE: CT HEAD/BRAIN WO CON INDICATIONS: vertigo TECHNIQUE: Noncontrast 4.5 mm thick angled axial sections acquired from the foramen magnum to the vertex, with coronal and sagittal reformats. For radiation dose reduction, the following was used: automated exposure control, adjustment of mA and/or kV according to patient size. COMPARISON: [facility], MR, BRAIN WITH AND WITHOUT CONTRAS, 06/28/2009, 15:36. FINDINGS: Image quality: Excellent. CSF spaces: Basal cisterns are patent. No extra-axial fluid collections. The ventricles are symmetric in size and shape. Brain: No intracranial bleeds or masses. There is cerebral volume loss for age, with resultant ventricular and sulcal prominence. There are periventricular and deep white matter chronic small vessel ischemic changes. Skull and face: Calvarium and visualized facial bones appear intact, without suspicious lesions. Sinuses: Visualized sinuses and mastoids are clear. 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 IMPRESSION: No acute intracranial disease process. Dictated by: Roxanne Del Angel MD, PhD on 04/15/2021 at 7:46 Approved by: Roxanne Del Angel MD, PhD on 04/15/2021 at 7:48
[2021-04-15] MEDS: MECLIZINE HCL 12.5 MG TABLET 50 MG PO (06:05)
[2021-04-15] MEDS: LORazepam 2 MG/ML INJ 0.5 MG IV (06:05)
--- NOTE | 2021-04-15 08:03 | PC.NURSE ---
OOB ambulatory to BR with minimal assistance. reports dizziness
== END 2021-04-15 08:31 | disposition home or self-care (01) ==
PROVIDERS: Emergency Medicine; Emergency Provider Emergency Medicine; PCP Family Medicine
DX: R42 Dizziness and giddiness (principal); R30.0 Dysuria; R11.0 Nausea
CPT/HCPCS: 36415; 70450; 71045; 80053; 81001; 82550; 83690; 84145; 84484; 85025; 87086; 93005; 96361; 96374; 99284; 99285; J2060

== ENCOUNTER → 2021-04-28 16:37 | Outpatient (CLI) | payer OTHER, MEDICARE, SELFPAY ==
[2021-04-28 18:30] LABS: Appearance Urine UA CLEAR; Bilirubin Urine UA NEGATIVE (NEGATIVE); Color Urine UA YELLOW; Glucose Urine UA NEGATIVE (Negative); Ketones Urine UA NEGATIVE (NEGATIVE); Leukocyte Esterase Urine UA TRACE (NEGATIVE); Nitrite Urine UA NEGATIVE (Negative); Occult Blood Urine UA NEGATIVE (Negative); Protein Urine UA NEGATIVE (Negative); Urobilinogen Urine UA 0.2 E.U./dL (0.2)
[2021-04-28 18:46] LABS: Bacteria Urine Occasional (0-1); RBC Urine None Seen (0-5/HPF); Squamous Epithelial Cell Urine 1-5 /HPF (0-5/HPF); WBC Urine 1-5/HPF (0-5/HPF)
[2021-04-28 18:47] LABS: Culture Indicated Urine Specimen Cultured
== END ==
PROVIDERS: PCP Family Medicine; Referring Provider Physician Assistant; Visit Provider Physician Assistant
DX: R30.0 Dysuria (principal)
CPT/HCPCS: 81001; 87086

== ENCOUNTER → 2021-06-16 11:34 | Outpatient (CLI) | payer OTHER, MEDICARE, SELFPAY ==
[2021-06-16 13:06] LABS: Add Manual Diff / Slide Review NO; Basophils Absolute Auto 100 /uL (0-100); Eosinophils Absolute Auto 400 /uL (0-450); Eosinophils Percent Auto 6.4 % (2-4); Hematocrit 38.7 % (36-46); Hemoglobin 12.1 g/dL (12.0-16.0); Lymphocytes Absolute Auto 2200 /uL (1100-4500); Lymphocytes Percent Auto 35.4 % (25-40); Mean Corpuscular HGB Conc 31.3 % (30-36); Mean Corpuscular Hemoglobin 24.8 PG (26-34); Mean Corpuscular Volume 79.2 fL (80-100); Monocytes Absolute Auto 700 /uL (0-900); Monocytes Percent Auto 11.2 % (3-14); Neutrophils Absolute Auto 2900 /uL (1500-7000); Platelet Count 401 X10^3/uL (150-400); Red Blood Cell Count 4.88 X10^6/uL (4.0-5.2); Red Cell Distribution Width 16.3 % (11.6-14.8); White Blood Cell Count 6.4 X10^3/uL (4.5-11.0)
[2021-06-16 13:22] LABS: Hemoglobin A1C% w Est Avg Glu 5.3 % (4.0-6.0)
[2021-06-16 13:28] LABS: Glucose 97 mg/dL (80-110)
[2021-06-16 13:40] LABS: Bilirubin Urine UA NEGATIVE (NEGATIVE); Color Urine UA YELLOW; Glucose Urine UA NEGATIVE (Negative); Ketones Urine UA NEGATIVE (NEGATIVE); Leukocyte Esterase Urine UA 1+ (NEGATIVE); Nitrite Urine UA NEGATIVE (Negative); Occult Blood Urine UA TRACE-LYSED (Negative); Protein Urine UA NEGATIVE (Negative); Urobilinogen Urine UA 0.2 E.U./dL (0.2)
[2021-06-16 13:46] LABS: pH Urine UA 5.5 (4.5-8.0)
[2021-06-16 13:48] LABS: Appearance Urine UA Slightly Cloudy; Bacteria Urine Few (2-10); Culture Indicated Urine Specimen Cultured; Mucus Urine 1+ (Negative); RBC Urine 0-1/HPF (0-5/HPF); Squamous Epithelial Cell Urine 1-5 /HPF (0-5/HPF); WBC Urine 5-10/HPF (0-5/HPF)
== END ==
PROVIDERS: PCP Family Medicine; Referring Provider Physician Assistant; Visit Provider Physician Assistant
DX: R79.89 Other specified abnormal findings of blood chemistry (principal); R73.09 Other abnormal glucose; R30.0 Dysuria
CPT/HCPCS: 36415; 81001; 82947; 83036; 85025; 87086; 87147

== ENCOUNTER → 2021-08-21 16:31 | Outpatient (CLI) | payer OTHER, MEDICARE, SELFPAY ==
[2021-08-21 17:38] LABS: Add Manual Diff / Slide Review NO; Basophils Absolute Auto 100 /uL (0-100); Basophils Percent Auto 1.5 % (0-2); Eosinophils Absolute Auto 300 /uL (0-450); Eosinophils Percent Auto 3.8 % (2-4); Hematocrit 37.5 % (36-46); Hemoglobin 11.9 g/dL (12.0-16.0); Lymphocytes Absolute Auto 2100 /uL (1100-4500); Lymphocytes Percent Auto 27.5 % (25-40); Mean Corpuscular HGB Conc 31.8 % (30-36); Mean Corpuscular Hemoglobin 24.4 PG (26-34); Mean Corpuscular Volume 76.8 fL (80-100); Monocytes Absolute Auto 900 /uL (0-900); Monocytes Percent Auto 11.2 % (3-14); Neutrophils Absolute Auto 4400 /uL (1500-7000); Platelet Count 451 X10^3/uL (150-400); Red Blood Cell Count 4.88 X10^6/uL (4.0-5.2); Red Cell Distribution Width 15.4 % (11.6-14.8); White Blood Cell Count 7.8 X10^3/uL (4.5-11.0)
== END ==
PROVIDERS: PCP Family Medicine; Referring Provider Physician Assistant; Visit Provider Physician Assistant
DX: R79.89 Other specified abnormal findings of blood chemistry (principal)
CPT/HCPCS: 36415; 85025

== ENCOUNTER → 2021-10-22 20:48 | Outpatient (ROUT) | payer OTHER, MEDICARE, SELFPAY ==
[2021-10-22 21:28] LABS: Appearance Urine UA CLEAR; Bilirubin Urine UA NEGATIVE (NEGATIVE); Color Urine UA YELLOW; Glucose Urine UA NEGATIVE (Negative); Ketones Urine UA NEGATIVE (NEGATIVE); Leukocyte Esterase Urine UA 1+ (NEGATIVE); Nitrite Urine UA NEGATIVE (Negative); Occult Blood Urine UA TRACE-INTACT (Negative); Protein Urine UA NEGATIVE (Negative); Specific Gravity Urine UA <=1.005 (1.000-1.035); Urobilinogen Urine UA 0.2 E.U./dL (0.2)
[2021-10-22 21:41] LABS: RBC Urine 0-1/HPF (0-5/HPF)
[2021-10-22 21:42] LABS: Bacteria Urine Moderate (10-30); Culture Indicated Urine Specimen Cultured; Squamous Epithelial Cell Urine 1-5 /HPF (0-5/HPF); WBC Urine 5-10/HPF (0-5/HPF)
== END ==
PROVIDERS: PCP Family Medicine; Visit Provider Physician Assistant
DX: N39.0 Urinary tract infection, site not specified (principal)
CPT/HCPCS: 81001; 87086; 87147

== ENCOUNTER → 2021-11-18 15:12 | Outpatient (CLI) | payer OTHER, MEDICARE, SELFPAY | PROVIDERS: PCP Family Medicine; Visit Provider Urology | DX: R30.0 Dysuria (principal); N39.0 Urinary tract infection, site not specified; R79.89 Other specified abnormal findings of blood chemistry; T83.711D Erosion of implanted vaginal mesh to surrounding organ or tissue, subsequent encounter; Z90.5 Acquired absence of kidney | CPT/HCPCS: 36415; 51798; 80048; 81002; 85025; 87077; 87086; 87147; 99215 ==

== ENCOUNTER → 2021-11-18 16:16 | Outpatient (CLI) | payer OTHER, MEDICARE, SELFPAY ==
[2021-11-18 16:49] LABS: Add Manual Diff / Slide Review NO; Basophils Absolute Auto 100 /uL (0-100); Basophils Percent Auto 1.1 % (0-2); Eosinophils Absolute Auto 100 /uL (0-450); Eosinophils Percent Auto 1.8 % (2-4); Hematocrit 39.2 % (36-46); Hemoglobin 12.3 g/dL (12.0-16.0); Lymphocytes Absolute Auto 1700 /uL (1100-4500); Lymphocytes Percent Auto 22.2 % (25-40); Mean Corpuscular HGB Conc 31.4 % (30-36); Mean Corpuscular Hemoglobin 24.4 PG (26-34); Mean Corpuscular Volume 77.7 fL (80-100); Monocytes Absolute Auto 600 /uL (0-900); Monocytes Percent Auto 7.9 % (3-14); Neutrophils Absolute Auto 5300 /uL (1500-7000); Platelet Count 434 X10^3/uL (150-400); Red Blood Cell Count 5.04 X10^6/uL (4.0-5.2); Red Cell Distribution Width 17.3 % (11.6-14.8); White Blood Cell Count 7.9 X10^3/uL (4.5-11.0)
[2021-11-18 17:08] LABS: BUN Creatinine Ratio 10.6 (6-22); Blood Urea Nitrogen 12 mg/dL (7-17); Calcium 8.6 mg/dL (8.4-10.2); Carbon Dioxide 29 mmol/L (22-32); Chloride 103 mmol/L (98-107); Estimated Glomerular Filt Rate 54 mL/min (>60); Glucose 96 mg/dL (80-110); HEMOLYSIS < 15 (0-50); Potassium 3.5 mmol/L (3.4-5.1); Sodium 137 mmol/L (137-145)
== END ==
PROVIDERS: PCP Family Medicine; Referring Provider Urology; Visit Provider Urology
DX: N39.0 Urinary tract infection, site not specified (principal); R79.89 Other specified abnormal findings of blood chemistry
CPT/HCPCS: 36415; 80048; 85025

== ENCOUNTER → 2021-11-27 13:25 | Outpatient (CLI) | payer OTHER, MEDICARE, SELFPAY ==
--- NOTE | 2021-11-27 13:30 | DI.MG.S_ITS ---
BILATERAL DIGITAL DIAGNOSTIC MAMMOGRAM 3D/2D: 11/27/2021 Comparison is made to exams dated: 07/29/2016 mammogram - [facility], 10/01/2011 stereotactic biopsy - [facility], and 02/12/2010 mammogram - [facility]. The tissue of both breasts is heterogeneously dense. This may lower the sensitivity of mammography. The right breast has a 2.3 x 2.0 cm mass in the upper outer breast. This is smaller compared to the prior mammogram in 2017 when it measured 4.4 x 2.4 cm. There are surgical clips in both breasts. Multiple small oval asymmetries are seen in both breasts, all stable compared to the prior mammogram. Areas in both breasts are marked has areas of palpable abnormality with no underlying abnormality on mammogram. IMPRESSION: INCOMPLETE: NEEDS ADDITIONAL IMAGING EVALUATION Multiple subcentimeter stable asymmetries in both breasts, and a larger 2.3 x 2.0 cm asymmetry in the right upper outer breast which is smaller. No abnormality corresponding with the areas of palpable abnormality. Recommend bilateral breast ultrasound. This exam was interpreted at Station ID: [id number]. NOTE: For mammograms, a report in lay terms will be sent to the patient. Approximately 15% of breast malignancies will not be visualized mammographically. In the management of a palpable breast mass, a negative mammogram must not discourage biopsy of a clinically suspicious lesion. Electronically Signed By: Sky Wu acr/:11/27/2021 16:39:12 ACR BI-RADS Category 0: Incomplete [id number]
--- NOTE | 2021-11-27 13:30 | DI.US.S_ITS ---
ULTRASOUND OF LEFT BREAST: 11/27/2021 CLINICAL: Palpable left breast lump. Comparison is made to exams dated: 11/27/2021 mammogram, 07/29/2016 mammogram, 09/18/2011 mammogram, 09/18/2011, 07/14/2010 mammogram, and 02/12/2010 mammogram - [facility]. Color flow and Doppler ultrasound of the left breast were performed. In the left breast 12 o'clock position 4 cm from the nipple there is a 0.5 x 0.3 x 0.4 cm minimally complicated cyst. Adjacent to this there is a 0.6 x 0.4 x 1.0 cm complicated cyst. In the 12 o'clock position 1 cm behind the nipple there is a 0.8 x 0.5 x 0.4 cm cluster of cysts/ducts. IMPRESSION: PROBABLY BENIGN Mammographic findings in the left breast are stable compared to 2017. Ultrasound demonstrates multiple cysts, some complicated. Given ultrasound findings and lack of a finding corresponding to the palpable abnormality, recommend ultrasound in 6 months to ensure stability. This exam was interpreted at Station ID: [id number]. Electronically Signed By: Sky Wu acr/:11/27/2021 16:49:43 Entry: - 12/01/2021 11:17:48 Ultrasound BI-RADS: 3 Probably benign
--- NOTE | 2021-11-27 13:30 | DI.US.S_ITS ---
COMPLETE ULTRASOUND OF RIGHT BREAST AND AXILLA: 11/27/2021 CLINICAL: Palpable right breast lump. Comparison is made to exams dated: 11/27/2021 mammogram, 08/07/2016 ultrasound, 08/07/2016 mammogram, 07/29/2016 mammogram - [facility], 10/01/2011 specimen, and 10/01/2011 stereotactic biopsy - [facility]. Color flow and Doppler ultrasound of the right breast four quadrants, retroareolar, and axilla regions were performed. In the right breast 11 o'clock position 3 cm from the nipple there is a 2.4 x 1.5 x 1.9 cm hypoechoic mass which demonstrates well-circumscribed borders, is oval, and wider than tall. Lung mammogram this mass is smaller compared to prior mammogram. In the right upper outer breast 10 o'clock position 8 cm from the nipple there is a 0.3 x 0.3 x 0.4 cm hypoechoic mass with no posterior acoustic shadowing which is wider than tall. In the right 9 o'clock position 7 cm from the nipple there is a 0.9 x 0.5 x 0.8 cm cyst with a thin septation and 8.5 x 0.4 x 0.4 cm cyst. IMPRESSION: PROBABLY BENIGN Mammographic findings in the right breast are stable compared to 2017. Ultrasound demonstrates multiple cysts and a fibroadenoma which is smaller compared to the prior mammogram. Given ultrasound findings and lack of a finding corresponding to the palpable abnormality, recommend ultrasound in 6 months to ensure stability. This exam was interpreted at Station ID: [id number]. Electronically Signed By: Sky Wu acr/:11/27/2021 16:51:31 Entry: - 12/01/2021 11:14:27 letter sent: Followup Recommended Ultrasound BI-RADS: 3 Probably benign
== END ==
PROVIDERS: PCP Family Medicine; Referring Provider Physician Assistant; Visit Provider Physician Assistant
DX: D24.1 Benign neoplasm of right breast; N60.02 Solitary cyst of left breast; R92.8 Other abnormal and inconclusive findings on diagnostic imaging of breast; N60.01 Solitary cyst of right breast
CPT/HCPCS: 76642; 77066; G0279

== ENCOUNTER → 2021-12-08 13:54 | Outpatient (CLI) | payer OTHER, MEDICARE, SELFPAY ==
--- NOTE | 2021-12-08 13:58 | DI.CT.S_ITS ---
PROCEDURE: CT ABDOMEN PELVIS WO/W CON INDICATIONS: Recurring urinary tract infection TECHNIQUE: Optional 5 mm thick noncontrast images acquired from the diaphragm to the symphysis pubis. After the administration of intravenous contrast, 5 mm thick images acquired from the diaphragm to the symphysis pubis after a 10-minute delay. 2 mm thick coronal and sagittal reformats were then performed of the kidneys and ureters. For radiation dose reduction, the following was used: automated exposure control, adjustment of mA and/or kV according to patient size. COMPARISON: [facility], CT, CT ANGIO CHEST PE PROTOCOL, 03/05/2021, 16:49. CT, CT ABDOMEN PELVIS W CON, 06/11/2020, 8:33. FINDINGS: Image quality: Excellent. Lung bases: Lung bases are clear. Heart size is normal. There is a imgqqxag-[id number] sized hiatal hernia. Urinary system: Both kidneys are normal in size, without hydronephrosis or nephrolithiasis on pre-contrast images. There is normal bilateral renal enhancement. There is a cortical scar in the lateral cortex of the left kidney. Renal calyces appear normal in morphology when filled with contrast. Opacified portions of both ureters demonstrate normal caliber. Mild bladder wall thickening. No calcified bladder stones. Other solid organs: Liver is normal in size and enhancement. Hepatic steatosis. Gallbladder is surgically absent. Biliary system is non-dilated. Pancreas enhances normally. Spleen is normal in size and enhancement. No adrenal nodules. Peritoneum and bowel: Bowel loops demonstrate normal wall thickness and caliber. There are numerous colonic diverticula. No findings to suggest acute diverticulitis. No free fluid or air. Nodes and vessels: No retroperitoneal or mesenteric adenopathy by size criteria. Aorta and inferior vena cava are normal in size. Abdominal wall: No ventral hernias. Pelvis: Uterus is absent, consistent with hysterectomy. Left ovary is normal. Right ovary is not well seen. No pathologic free pelvic fluid. No inguinal hernias or adenopathy. Bones: No suspicious bony lesions. No vertebral body compression fractures. There is arthrodesis of the right SI joint. IMPRESSION: 1. Mild bladder wall thickening consistent with cystitis. 2. Cortical scars in left kidney. 3. Diverticulosis without diverticulitis. 4. Hepatic steatosis. 5. Chmrztob-bl-bzfql sized hiatal hernia. Dictated by: Escobar Hitchcock M.D. on 12/08/2021 at 16:41 Approved by: Escobar Hitchcock M.D. on 12/08/2021 at 17:29
== END ==
PROVIDERS: PCP Family Medicine; Referring Provider Urology; Visit Provider Urology
DX: N39.0 Urinary tract infection, site not specified (principal); K57.90 Diverticulosis of intestine, part unspecified, without perforation or abscess without bleeding; K76.0 Fatty (change of) liver, not elsewhere classified; K44.9 Diaphragmatic hernia without obstruction or gangrene; Z90.49 Acquired absence of other specified parts of digestive tract
CPT/HCPCS: 74178

== ENCOUNTER → 2021-12-10 14:20 | Outpatient (CLI) | payer OTHER, MEDICARE, SELFPAY ==
[2021-12-10 15:26] LABS: Appearance Urine UA CLEAR; Bilirubin Urine UA NEGATIVE (NEGATIVE); Color Urine UA YELLOW; Glucose Urine UA NEGATIVE (Negative); Ketones Urine UA NEGATIVE (NEGATIVE); Leukocyte Esterase Urine UA 1+ (NEGATIVE); Nitrite Urine UA NEGATIVE (Negative); Occult Blood Urine UA NEGATIVE (Negative); Protein Urine UA NEGATIVE (Negative); Specific Gravity Urine UA <=1.005 (1.000-1.035); Urobilinogen Urine UA 0.2 E.U./dL (0.2)
[2021-12-10 15:43] LABS: Bacteria Urine None Seen; Culture Indicated Urine Specimen Cultured; RBC Urine None Seen (0-5/HPF); Squamous Epithelial Cell Urine 0-1 /HPF (0-5/HPF); WBC Urine 1-5/HPF (0-5/HPF); pH Urine UA 6.5 (4.5-8.0)
== END ==
PROVIDERS: PCP Family Medicine; Referring Provider Specialist; Visit Provider Specialist
DX: R30.0 Dysuria (principal)
CPT/HCPCS: 81001; 87086

== ENCOUNTER → 2021-12-19 13:08 | Outpatient (CLI) | payer OTHER, MEDICARE, SELFPAY | PROVIDERS: PCP Family Medicine; Visit Provider Physician Assistant | DX: N34.3 Urethral syndrome, unspecified (principal) | CPT/HCPCS: 87077; 87086; 87186 ==

== ENCOUNTER → 2022-02-03 15:23 | Outpatient (CLI) | payer OTHER, MEDICARE, SELFPAY | PROVIDERS: PCP Family Medicine; Visit Provider Physician Assistant | DX: N34.3 Urethral syndrome, unspecified (principal) | CPT/HCPCS: 87077; 87086; 87147 ==

== ENCOUNTER → 2022-02-10 15:28 | Outpatient (CLI) | payer OTHER, MEDICARE, SELFPAY ==
[2022-02-10 16:53] LABS: Appearance Urine UA CLEAR; Bilirubin Urine UA NEGATIVE (NEGATIVE); Color Urine UA YELLOW; Glucose Urine UA NEGATIVE (Negative); Ketones Urine UA NEGATIVE (NEGATIVE); Leukocyte Esterase Urine UA TRACE (NEGATIVE); Nitrite Urine UA NEGATIVE (Negative); Occult Blood Urine UA NEGATIVE (Negative); Protein Urine UA NEGATIVE (Negative); Specific Gravity Urine UA <=1.005 (1.000-1.035); Urobilinogen Urine UA 0.2 E.U./dL (0.2)
[2022-02-10 17:35] LABS: pH Urine UA 6.5 (4.5-8.0)
[2022-02-10 17:39] LABS: Bacteria Urine None Seen; Culture Indicated Urine Cult Not Indicated; RBC Urine None Seen (0-5/HPF); Squamous Epithelial Cell Urine 0-1 /HPF (0-5/HPF); WBC Urine 0-1/HPF (0-5/HPF)
== END ==
PROVIDERS: PCP Family Medicine; Referring Provider Physician Assistant; Visit Provider Physician Assistant
DX: N39.0 Urinary tract infection, site not specified (principal)
CPT/HCPCS: 81001

== ENCOUNTER → 2022-02-22 14:27 | Outpatient (CLI) | payer OTHER, MEDICARE, SELFPAY | PROVIDERS: PCP Family Medicine; Visit Provider Physician Assistant | DX: N34.3 Urethral syndrome, unspecified (principal) | CPT/HCPCS: 87086 ==

== ENCOUNTER → 2022-03-12 11:57 | Outpatient (CLI) | payer OTHER, MEDICARE, SELFPAY ==
[2022-03-12 12:45] LABS: COVID19 -Nasal RAPID Negative (Negative)
== END ==
PROVIDERS: PCP Family Medicine; Visit Provider Obstetrics & Gynecology
DX: Z01.812 Encounter for preprocedural laboratory examination (principal); Z20.822 Contact with and (suspected) exposure to COVID-19; R30.0 Dysuria
CPT/HCPCS: 87086; 87635

== ENCOUNTER 2022-03-13 08:43 | Day surgery (SDC) | payer OTHER, MEDICARE, SELFPAY ==
[2022-03-05 15:01] VITALS: BMI 30.8
[2022-03-13] VITALS (8 sets, daily range): BP systolic 110–146; BP diastolic 60–87; PULSE 89–102; RESP 9–20; TEMP 36.4–36.8; O2SAT 97–99; BMI 33.5
[2022-03-13] MEDS: LACTATED RINGERS 1,000 ML 42 ML IV ×2 (09:48→12:06)
--- NOTE | 2022-03-13 10:34 | PM.PREOP ---
Pre-operative Note COVID-19 COVID-19 status: Negative Result date/Date tested (Pos, Neg/Pending): 03/12/22 Criteria for continued procedure: Non-surgical alternatives not available or appropriate per current SOC Interval Note History & Physical reviewed/Exam performed by Physician: Yes Changes to H&P: No
--- NOTE | 2022-03-13 11:14 | SUR.OPER ---
Lithotomy on padded OR bed, head on pillow, arms secured on padded arm boards at <90 degrees abduction. Legs secured in padded yellow fins stirrups.
[2022-03-13] MEDS: CEFAZOLIN 2 GM/100 ML PREMIX 100 ML IV (11:15)
[2022-03-13] MEDS: BUPIVACAINE 0.5% W/ EPI (PF) 30 ML VIAL INJ (12:15)
--- NOTE | 2022-03-13 12:33 | PM.GYNOP.1 ---
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 cystoscopy Not Applicable Narinder Boone MD Indications: This 67-year-old female was seen at [facility] as a new patient with complaint of recurring urinary tract infections in November 2021.? She has a somewhat complicated urologic history which will be detailed below.? Patient reports she has had urinary tract infections for at least 10 years dating from her initial sling placement.? The sling was performed at [facility] and according to the patient retropubic bone screws were used for fixation but one side of the sling failed and she underwent a revision with placement of second mid-urethral sling by Dr. Sailaja Thompson at [facility] with subsequent vaginal erosion and revision.? Patient also has been tried on different antibiotic regimens with rapid recurrence with the organism consistently identified as group b strep.? 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 She also from her surgeries had a hernia which required a ventral hernia repair and has a long history of irritable bowel syndrome.? She has atrophic vaginitis which had previously been treated with topical E2 therapy which was reinitiated 2 months ago.? Subsequent to her initial evaluation by Urology, she underwent flexible cystoscopy which was negative for urethral erosion or any bladder abnormalities.? Postvoid residual is [address] scan abdomen and pelvis from 2019 showed no abnormalities.? Patient has no KURT.? She sometimes feels it is difficult to initiate her stream and occasional has a sensation of incomplete emptying.? In addition she has constant discomfort at the site of the mid urethral sling placement but the discomfort becomes severe when she is in a sitting position for prolonged periods of time. After consideration of all options the patient has elected to proceed with revision of her existing mid urethral sling.? She is currently scheduled to have that procedure performed in the main OR of [facility] on 03/13/2022 and presents today for her scheduled surgery. Surgeon: Narinder Boone Anesthesia Type: General Operative Notes Findings: Scarring of previously placed mid-urethral sling and distal migration of the sling. Bladder and urethra are normal to cystoscopic visualization. Closure Type: primary Specimen(s): none Applied: catheter Estimated blood loss (mL): 25 Blood products transfused: none Procedure in detail: With the patient under satisfactory general anesthesia in the modified dorsal lithotomy position, perineum vagina and lower abdomen were prepped and draped for mid urethral sling revision. A pre-surgical safety time-out taken in accordance with [facility] Main OR protocols. A weighted speculum was placed in the vagina and Lone star retractor was used to achieve adequate visualization of the urethral meatus and the anterior vaginal wall. A small cervical dilator was then introduced into the urethral meatus and gentle downward pressure applied as inserted so as to identify the location of the mid urethral sling. Once the location of the sling had been identified, a Palacios catheter was inserted in the bladder for continued identification/palpation of the urethra throughout the procedure. A midline incision was then made in the anterior vaginal mucosa underneath the mid urethra which was difficult due to upward retraction of the vaginal mucosa attached to the mid urethral sling underlying. The dissection was then carried out laterally and elements of the mid urethral sling were visualized. These were then grasped with a fine hemostat and mobilized gently. The sling was then cut with Metzenbaum scissors on the left side at the level of the urethra so as to provide continued support of the tissues lateral to the urethra. The midline portion of the mid urethral sling was dissected gently from the underside of the urethral muscularis over to the right side where the sling was again cut with Metzenbaum scissors level of urethra and all elements of the mid urethral sling underlying the urethra were removed by the completion of the case. Also encountered during the procedure were strands of the original mid urethral sling placed which had been removed prior to placement of a 2nd mid urethral sling. At the completion of the case there were no elements of a urethral sling remaining underneath the urethra and mobility of the mid urethra was significantly improved although there was good support laterally on both sides. The catheter was then removed and cystoscopy was performed with a 70 degree scope. Bladder was seen to be completely normal and the urethra as visualized was also normal although the distal urethra was somewhat hyperemic but no evidence of injury to the urethra was seen. Once the integrity of the urethra and bladder were confirms with cystoscopy and urethroscopy, the vaginal incision was closed transversely with 2-0 Vicryl in a running interlocking stitch. Hemostasis was excellent and at the completion of the case, the Palacios catheter was reinserted and will remain in place for 5 days postop. Patient was then awakened from anesthesia and transferred to the PACU after having tolerated the procedure well. Complications: none Post-operative Condition: stable Disposition: PACU Plan for aftercare: Home with indwelling catheter x 5 days.
[2022-03-13] MEDS: fentaNYL 100 MCG/2 ML INJ IV ×2 (12:37→12:46)
[2022-03-13] MEDS: OXYCODONE/ACETAMINOPHEN 5/325 TABLET 1 TAB PO ×2 (12:38→13:35)
--- NOTE | 2022-03-13 12:58 | SUR.PHASEI ---
Report to Claudia, pain down to 4/10 from 01/25
[2022-03-13] MEDS: ONDANSETRON 4 MG/2 ML INJ IV (13:02)
[2022-03-13] MEDS: ONDANSETRON 4 MG/2 ML INJ (13:35)
== END 2022-03-13 13:45 | disposition home or self-care (01) ==
PROVIDERS: PCP Family Medicine; Referring Provider Obstetrics & Gynecology; Visit Provider Obstetrics & Gynecology
PROC: 0TSD0ZZ Reposition Urethra, Open Approach (ICD-10-PCS; CPT 57287; principal; 2022-03-13 09:45)
DX: T83.598A Infection and inflammatory reaction due to other prosthetic device, implant and graft in urinary system, initial encounter (principal); N39.8 Other specified disorders of urinary system; Z96.0 Presence of urogenital implants; Z87.440 Personal history of urinary (tract) infections; I10 Essential (primary) hypertension
CPT/HCPCS: 57287; J0690; J1100; J2405; J2704; J3010

== ENCOUNTER → 2022-03-24 17:04 | Outpatient (CLI) | payer OTHER, MEDICARE, SELFPAY | PROVIDERS: PCP Family Medicine; Visit Provider Obstetrics & Gynecology | DX: R30.0 Dysuria (principal); R82.90 Unspecified abnormal findings in urine | CPT/HCPCS: 87086 ==

== ENCOUNTER → 2022-03-24 17:30 | Outpatient (CLI) | payer OTHER, MEDICARE, SELFPAY ==
[2022-03-24 17:59] LABS: Add Manual Diff / Slide Review NO; Basophils Absolute Auto 100 /uL (0-100); Eosinophils Absolute Auto 300 /uL (0-450); Eosinophils Percent Auto 4.2 % (2-4); Hematocrit 35.5 % (36-46); Hemoglobin 11.8 g/dL (12.0-16.0); Lymphocytes Absolute Auto 1600 /uL (1100-4500); Lymphocytes Percent Auto 20.7 % (25-40); Mean Corpuscular HGB Conc 33.2 % (30-36); Mean Corpuscular Hemoglobin 25.9 PG (26-34); Mean Corpuscular Volume 78.1 fL (80-100); Monocytes Absolute Auto 700 /uL (0-900); Monocytes Percent Auto 9.2 % (3-14); Neutrophils Absolute Auto 5000 /uL (1500-7000); Neutrophils Percent Auto 64.9 % (50-75); Platelet Count 445 X10^3/uL (150-400); Red Blood Cell Count 4.55 X10^6/uL (4.0-5.2); Red Cell Distribution Width 15.3 % (11.6-14.8); White Blood Cell Count 7.7 X10^3/uL (4.5-11.0)
[2022-03-24 18:07] LABS: Lactate (Lactic Acid) 2.4 mmol/L (0.7-2.1)
[2022-03-24 18:12] LABS: Alanine Aminotransferase 17 IU/L (<35); Albumin 4.1 g/dL (3.5-5.0); Albumin Globulin Ratio 1.2 (1.0-2.8); Alkaline Phosphatase 88 U/L (38-126); Aspartate Aminotransferase 21 IU/L (14-36); BUN Creatinine Ratio 9.5 (6-22); Bilirubin Total 0.3 mg/dL (0.2-1.3); Blood Urea Nitrogen 10 mg/dL (7-17); Calcium 8.7 mg/dL (8.4-10.2); Carbon Dioxide 29 mmol/L (22-32); Chloride 99 mmol/L (98-107); Estimated Glomerular Filt Rate 58 mL/min (>60); Globulin 3.3 g/dL (1.7-4.1); Glucose 129 mg/dL (80-110); HEMOLYSIS < 15 (0-50); Potassium 3.1 mmol/L (3.4-5.1); Sodium 134 mmol/L (137-145); Total Protein 7.4 g/dL (6.3-8.2)
[2022-03-24 19:38] LABS: Reflexed Lactate in 2 Hours Y
== END ==
PROVIDERS: PCP Family Medicine; Referring Provider Obstetrics & Gynecology; Visit Provider Obstetrics & Gynecology
DX: R10.9 Unspecified abdominal pain (principal); R30.0 Dysuria; R82.90 Unspecified abnormal findings in urine
CPT/HCPCS: 36415; 80053; 83605; 85025; 87086

== ENCOUNTER → 2022-03-31 08:17 | Outpatient (CLI) | payer OTHER, MEDICARE, SELFPAY ==
[2022-03-31 13:11] LABS: Appearance Urine UA SL CLOUDY; Bilirubin Urine UA NEGATIVE (NEGATIVE); Color Urine UA YELLOW; Glucose Urine UA NEGATIVE (Negative); Ketones Urine UA NEGATIVE (NEGATIVE); Leukocyte Esterase Urine UA 3+ (NEGATIVE); Nitrite Urine UA NEGATIVE (Negative); Occult Blood Urine UA 1+ (Negative); Protein Urine UA NEGATIVE (Negative); Urobilinogen Urine UA 0.2 E.U./dL (0.2)
[2022-03-31 13:44] LABS: Amorphous Sediment Urine 1+; RBC Urine 1-5/HPF (0-5/HPF); Squamous Epithelial Cell Urine 0-1 /HPF (0-5/HPF); WBC Urine 10-30/HPF (0-5/HPF)
[2022-03-31 13:45] LABS: Bacteria Urine Moderate (10-30)
== END ==
PROVIDERS: PCP Family Medicine; Visit Provider Obstetrics & Gynecology
DX: N39.0 Urinary tract infection, site not specified (principal); R10.9 Unspecified abdominal pain; Z90.5 Acquired absence of kidney
CPT/HCPCS: 81001; 87086

== ENCOUNTER → 2022-03-31 16:22 | Outpatient (CLI) | payer OTHER, MEDICARE, SELFPAY ==
[2022-03-31 16:47] LABS: Add Manual Diff / Slide Review NO; Basophils Absolute Auto 100 /uL (0-100); Basophils Percent Auto 2.2 % (0-2); Eosinophils Absolute Auto 300 /uL (0-450); Eosinophils Percent Auto 5.2 % (2-4); Hematocrit 36.9 % (36-46); Hemoglobin 11.8 g/dL (12.0-16.0); Lymphocytes Absolute Auto 1900 /uL (1100-4500); Lymphocytes Percent Auto 31.6 % (25-40); Mean Corpuscular HGB Conc 32.1 % (30-36); Monocytes Absolute Auto 600 /uL (0-900); Monocytes Percent Auto 9.3 % (3-14); Neutrophils Absolute Auto 3100 /uL (1500-7000); Neutrophils Percent Auto 51.7 % (50-75); Platelet Count 435 X10^3/uL (150-400); Red Blood Cell Count 4.73 X10^6/uL (4.0-5.2); Red Cell Distribution Width 15.2 % (11.6-14.8); White Blood Cell Count 6.1 X10^3/uL (4.5-11.0)
[2022-03-31 17:19] LABS: HEMOLYSIS < 15 (0-50); Iron 28 ug/dL (37-170)
[2022-03-31 17:29] LABS: Percent Iron Saturation 6 % (15-50); Total Iron Binding Capacity 480 ug/dL (265-497); Transferrin 363 mg/dL (206-381)
[2022-03-31 18:40] LABS: BUN Creatinine Ratio 14.7 (6-22); Blood Urea Nitrogen 15 mg/dL (7-17); Calcium 8.9 mg/dL (8.4-10.2); Carbon Dioxide 26 mmol/L (22-32); Chloride 101 mmol/L (98-107); Estimated Glomerular Filt Rate > 60 mL/min (>60); Glucose 91 mg/dL (80-110); HEMOLYSIS < 15 (0-50); Lactate (Lactic Acid) 1.5 mmol/L (0.7-2.1); Potassium 3.5 mmol/L (3.4-5.1); Sodium 137 mmol/L (137-145)
[2022-03-31 19:15] LABS: Ferritin 6 ng/mL (11-264)
== END ==
PROVIDERS: PCP Family Medicine; Referring Provider Physician Assistant; Visit Provider Physician Assistant
DX: D64.9 Anemia, unspecified (principal); R53.83 Other fatigue; R79.89 Other specified abnormal findings of blood chemistry
CPT/HCPCS: 36415; 80048; 82728; 83540; 83550; 83605; 85025

== ENCOUNTER → 2022-04-21 15:47 | Outpatient (CLI) | payer OTHER, MEDICARE, SELFPAY ==
[2022-04-21 18:05] LABS: Appearance Urine UA CLEAR; Bilirubin Urine UA NEGATIVE (NEGATIVE); Color Urine UA YELLOW; Glucose Urine UA NEGATIVE (Negative); Ketones Urine UA NEGATIVE (NEGATIVE); Leukocyte Esterase Urine UA 2+ (NEGATIVE); Nitrite Urine UA NEGATIVE (Negative); Occult Blood Urine UA TRACE-LYSED (Negative); Protein Urine UA NEGATIVE (Negative); Specific Gravity Urine UA <=1.005 (1.000-1.035); Urobilinogen Urine UA 0.2 E.U./dL (0.2)
[2022-04-21 18:09] LABS: pH Urine UA 5.5 (4.5-8.0)
[2022-04-21 18:21] LABS: Amorphous Sediment Urine 1+; Bacteria Urine Occasional (0-1); Culture Indicated Urine Specimen Cultured; RBC Urine 0-1/HPF (0-5/HPF); Squamous Epithelial Cell Urine 5-10 /HPF (0-5/HPF); WBC Urine 5-10/HPF (0-5/HPF)
== END ==
PROVIDERS: PCP Family Medicine; Referring Provider Physician Assistant; Visit Provider Physician Assistant
DX: N39.0 Urinary tract infection, site not specified (principal)
CPT/HCPCS: 81001; 87086

== ENCOUNTER → 2022-07-15 10:07 | Outpatient (CLI) | payer OTHER, MEDICARE, SELFPAY ==
--- NOTE | 2022-07-15 10:09 | DI.US.S_ITS ---
ULTRASOUND OF RIGHT BREAST: 07/15/2022 CLINICAL: 6 month follow-up of cysts. Comparison is made to exams dated: 11/27/2021 ultrasound, 11/27/2021 mammogram, 08/07/2016 ultrasound, 08/07/2016 mammogram, and 07/29/2016 mammogram - [facility]. Color flow and real-time ultrasound of the right breast were performed. Ortega scale images of the real-time examination were reviewed. There is a ljuob-fkey-nhkr hypoechoic solid mass in the right breast at 12 o'clock anterior depth with smooth borders, consistent with fibroadenoma. This is slightly decreased in size from previous exam. Previously questioned mass at 10 o'clock position no longer demonstrated. Previously seen cysts are unchanged. IMPRESSION: BENIGN There is no sonographic evidence of malignancy. 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 Return to annual mammogram screening schedule is recommended. This exam was interpreted at Station ID: [id number]. Electronically Signed By: Kam Melendrez M.D. jr/:07/15/2022 11:03:21 letter sent: Normal Exam Ultrasound BI-RADS: 2 Benign
--- NOTE | 2022-07-15 10:09 | DI.US.S_ITS ---
LIMITED ULTRASOUND OF LEFT BREAST: 07/15/2022 CLINICAL: 6 month follow-up of cysts. Comparison is made to exams dated: 11/27/2021 ultrasound, 11/27/2021 mammogram, and 07/29/2016 mammogram - [facility]. Color flow and real-time ultrasound of the left breast were performed. Ortega scale images of the real-time examination were reviewed. No significant abnormalities were seen sonographically in the left breast. Previously described cysts or dilated ducts are all either stable or no longer demonstrated. IMPRESSION: NEGATIVE There is no sonographic evidence of malignancy. Return to annual mammogram screening schedule is recommended. This exam was interpreted at Station ID: [id number]. Electronically Signed By: Kam Melendrez M.D. jr/:07/15/2022 11:04:50 letter sent: Normal Exam Ultrasound BI-RADS: 1 Negative
[2022-07-15 11:40] LABS: Add Manual Diff / Slide Review NO; Basophils Absolute Auto 100 /uL (0-100); Basophils Percent Auto 1.6 % (0-2); Eosinophils Absolute Auto 200 /uL (0-450); Eosinophils Percent Auto 4.4 % (2-4); Hematocrit 42.5 % (36-46); Hemoglobin 14.4 g/dL (12.0-16.0); Lymphocytes Absolute Auto 1600 /uL (1100-4500); Lymphocytes Percent Auto 29.9 % (25-40); Mean Corpuscular HGB Conc 33.9 % (30-36); Mean Corpuscular Hemoglobin 28.9 PG (26-34); Mean Corpuscular Volume 85.1 fL (80-100); Monocytes Absolute Auto 500 /uL (0-900); Monocytes Percent Auto 8.8 % (3-14); Neutrophils Absolute Auto 3000 /uL (1500-7000); Neutrophils Percent Auto 55.3 % (50-75); Platelet Count 353 X10^3/uL (150-400); Red Blood Cell Count 4.99 X10^6/uL (4.0-5.2); Red Cell Distribution Width 15.3 % (11.6-14.8); White Blood Cell Count 5.3 X10^3/uL (4.5-11.0)
[2022-07-15 12:08] LABS: Appearance Urine UA SL CLOUDY; Bilirubin Urine UA NEGATIVE (NEGATIVE); Color Urine UA YELLOW; Glucose Urine UA NEGATIVE (Negative); Ketones Urine UA NEGATIVE (NEGATIVE); Leukocyte Esterase Urine UA 3+ (NEGATIVE); Nitrite Urine UA NEGATIVE (Negative); Occult Blood Urine UA 1+ (Negative); Protein Urine UA 1+ (Negative); Specific Gravity Urine UA 1.015 (1.000-1.035); Urobilinogen Urine UA 0.2 E.U./dL (0.2)
[2022-07-15 12:10] LABS: pH Urine UA 6.5 (4.5-8.0)
[2022-07-15 12:17] LABS: HEMOLYSIS < 15 (0-50); Iron 55 ug/dL (37-170)
[2022-07-15 12:20] LABS: RBC Urine 1-5/HPF (0-5/HPF); Squamous Epithelial Cell Urine 10-30 /HPF (0-5/HPF); WBC Urine 30-100/HPF (0-5/HPF)
[2022-07-15 12:21] LABS: Bacteria Urine Moderate (10-30); Culture Indicated Urine Specimen Cultured
[2022-07-15 12:28] LABS: Percent Iron Saturation 15 % (15-50); Total Iron Binding Capacity 376 ug/dL (265-497); Transferrin 299 mg/dL (206-381)
[2022-07-15 12:40] LABS: Ferritin 10 ng/mL (11-264)
== END ==
PROVIDERS: Physician Assistant; PCP Family Medicine; Referring Provider Family Medicine; Visit Provider Family Medicine
DX: N60.01 Solitary cyst of right breast; N60.02 Solitary cyst of left breast; R30.0 Dysuria; D50.9 Iron deficiency anemia, unspecified; R92.8 Other abnormal and inconclusive findings on diagnostic imaging of breast
CPT/HCPCS: 36415; 76642; 81001; 82728; 83540; 83550; 85025; 87086

== ENCOUNTER → 2022-08-03 16:04 | Outpatient (CLI) | payer OTHER, MEDICARE, SELFPAY ==
[2022-08-03 18:27] LABS: Appearance Urine UA SL CLOUDY; Bilirubin Urine UA NEGATIVE (NEGATIVE); Color Urine UA YELLOW; Glucose Urine UA NEGATIVE (Negative); Ketones Urine UA NEGATIVE (NEGATIVE); Leukocyte Esterase Urine UA 1+ (NEGATIVE); Nitrite Urine UA NEGATIVE (Negative); Occult Blood Urine UA NEGATIVE (Negative); Protein Urine UA NEGATIVE (Negative); Specific Gravity Urine UA <=1.005 (1.000-1.035); Urobilinogen Urine UA 0.2 E.U./dL (0.2)
[2022-08-03 18:43] LABS: pH Urine UA 6.5 (4.5-8.0)
[2022-08-03 18:44] LABS: Bacteria Urine Few (2-10); Culture Indicated Urine Specimen Cultured; RBC Urine 0-1/HPF (0-5/HPF); Squamous Epithelial Cell Urine 1-5 /HPF (0-5/HPF); WBC Urine 10-30/HPF (0-5/HPF)
== END ==
PROVIDERS: PCP Family Medicine; Referring Provider Physician Assistant; Visit Provider Physician Assistant
DX: R30.0 Dysuria (principal)
CPT/HCPCS: 81001; 87086

== ENCOUNTER → 2022-09-08 14:09 | Outpatient (CLI) | payer OTHER, MEDICARE, SELFPAY ==
[2022-09-08 19:55] LABS: Bilirubin Urine UA 1+ (NEGATIVE); Color Urine UA YELLOW; Glucose Urine UA NEGATIVE (Negative); Ketones Urine UA NEGATIVE (NEGATIVE); Leukocyte Esterase Urine UA 3+ (NEGATIVE); Nitrite Urine UA NEGATIVE (Negative); Occult Blood Urine UA TRACE-INTACT (Negative); Protein Urine UA 1+ (Negative); Specific Gravity Urine UA 1.025 (1.000-1.035); Urobilinogen Urine UA 0.2 E.U./dL (0.2)
[2022-09-08 19:59] LABS: Appearance Urine UA CLOUDY
[2022-09-08 20:09] LABS: Amorphous Sediment Urine 1+; Bacteria Urine Moderate (10-30); Culture Indicated Urine Specimen Cultured; Ictotest Urine Negative (Negative); Mucus Urine 3+ (Negative); RBC Urine 1-5/HPF (0-5/HPF); Squamous Epithelial Cell Urine 5-10 /HPF (0-5/HPF); WBC Urine 30-100/HPF (0-5/HPF)
== END ==
PROVIDERS: PCP Family Medicine; Visit Provider Physician Assistant
DX: N39.0 Urinary tract infection, site not specified (principal); R30.0 Dysuria
CPT/HCPCS: 81001; 87077; 87086; 87147

== ENCOUNTER → 2022-09-14 17:04 | Outpatient (CLI) | payer OTHER, MEDICARE, SELFPAY ==
[2022-09-14 19:20] LABS: BUN Creatinine Ratio 14.8 (6-22); Blood Urea Nitrogen 13 mg/dL (7-17); Calcium 9.4 mg/dL (8.4-10.2); Carbon Dioxide 29 mmol/L (22-32); Chloride 97 mmol/L (98-107); Cholesterol 229 mg/dL (140-199); Estimated Glomerular Filt Rate > 60 mL/min (>60); Glucose 80 mg/dL (80-110); HDL Cholesterol 53 mg/dL (40-60); HEMOLYSIS < 15 (0-50); LDL Cholesterol Calculated 125 mg/dL (<100); Potassium 3.5 mmol/L (3.4-5.1); Sodium 136 mmol/L (137-145); Triglycerides 257 mg/dL (35-150)
[2022-09-14 19:51] LABS: TSH w/ Reflex to FT4 0.85 uIU/mL (0.47-4.68)
== END ==
PROVIDERS: PCP Family Medicine; Referring Provider Family Medicine; Visit Provider Family Medicine
DX: E03.9 Hypothyroidism, unspecified (principal); I10 Essential (primary) hypertension
CPT/HCPCS: 36415; 80048; 80061; 84443

== ENCOUNTER → 2022-09-29 17:25 | Outpatient (CLI) | payer OTHER, MEDICARE, SELFPAY ==
[2022-09-29 18:02] LABS: Appearance Urine UA CLEAR; Bilirubin Urine UA NEGATIVE (NEGATIVE); Color Urine UA YELLOW; Glucose Urine UA NEGATIVE (Negative); Ketones Urine UA NEGATIVE (NEGATIVE); Leukocyte Esterase Urine UA TRACE (NEGATIVE); Nitrite Urine UA NEGATIVE (Negative); Occult Blood Urine UA NEGATIVE (Negative); Protein Urine UA NEGATIVE (Negative); Specific Gravity Urine UA <=1.005 (1.000-1.035); Urobilinogen Urine UA 0.2 E.U./dL (0.2)
[2022-09-29 18:17] LABS: Bacteria Urine None Seen; Culture Indicated Urine Cult Not Indicated; RBC Urine None Seen (0-5/HPF); Squamous Epithelial Cell Urine None Seen (0-5/HPF); WBC Urine 0-1/HPF (0-5/HPF)
== END ==
PROVIDERS: PCP Family Medicine; Referring Provider Family Medicine; Visit Provider Family Medicine
DX: R30.0 Dysuria (principal)
CPT/HCPCS: 81003; 81015

== ENCOUNTER → 2022-12-10 16:45 | Outpatient (CLI) | payer OTHER, MEDICARE, SELFPAY ==
[2022-12-10 17:34] LABS: HEMOLYSIS < 15 (0-50); Iron 86 ug/dL (37-170)
[2022-12-10 17:40] LABS: Cholesterol 244 mg/dL (140-199); HDL Cholesterol 54 mg/dL (40-60); LDL Cholesterol Calculated 141 mg/dL (<100); Triglycerides 246 mg/dL (35-150)
[2022-12-10 17:46] LABS: Percent Iron Saturation 19 % (15-50); Total Iron Binding Capacity 455 ug/dL (265-497); Transferrin 352 mg/dL (206-381)
== END ==
PROVIDERS: PCP Family Medicine; Referring Provider Physician Assistant; Visit Provider Physician Assistant
DX: D50.9 Iron deficiency anemia, unspecified (principal); E78.2 Mixed hyperlipidemia
CPT/HCPCS: 36415; 80061; 83540; 83550

== ENCOUNTER → 2023-03-17 08:54 | Outpatient (CLI) | payer OTHER, MEDICARE, SELFPAY ==
--- NOTE | 2023-03-17 | DI.US.S_ITS ---
ULTRASOUND OF LEFT BREAST AND AXILLA: 03/17/2023 CLINICAL: Patient returns today to evaluate a focal asymmetry in the left axilla. Comparison is made to exams dated: 03/17/2023 mammogram, 07/15/2022 ultrasound, 11/27/2021 ultrasound, 11/27/2021 mammogram, and 07/29/2016 mammogram - [facility]. Color flow and real-time ultrasound of the left breast axilla were performed. Ortega scale images of the real-time examination were reviewed. No significant abnormalities were seen sonographically in the left axilla. IMPRESSION: NEGATIVE There is no sonographic evidence of malignancy. No enlarged left axillary lymph nodes. Exam findings were conveyed to the patient. Patient is advised to monitor for significant change. Clinical follow-up as needed. A 1 year screening mammogram is recommended. This exam was interpreted at Station ID: [id number]. Electronically Signed By: Hector Henriquez M.D. slc/:03/17/2023 11:01:57 letter sent: Normal Exam Ultrasound BI-RADS: 1 Negative
--- NOTE | 2023-03-17 08:58 | DI.MG.S_ITS ---
BILATERAL DIGITAL DIAGNOSTIC MAMMOGRAM 3D/2D: 03/17/2023 CLINICAL: Right breast lump/thickening noted by the pt for several months. The thickening is noted to extend posterior (marker placed half way point). No other symptoms and No recent CBE has been done. Left axillary lump marked. Due for Bilateral exam. Comparison is made to exams dated: 11/27/2021 mammogram, 07/29/2016 mammogram, 07/15/2022 ultrasound, and 07/15/2022 ultrasound - [facility]. Both breasts are heterogeneously dense, which may obscure small masses (category c / 51-75% glandular tissue). No significant interval change. Post-operative findings in both breasts. Several small cysts bilaterally. Right breast cyst near the palpable site measuring 2.1 cm is unchanged. No significant masses, calcifications, or other findings are seen in either breast. IMPRESSION: INCOMPLETE: NEEDS ADDITIONAL IMAGING EVALUATION No mammographic evidence of malignancy. A targeted ultrasound is recommended and will immediately follow. Based on Tyrer-Cuzick model (a risk assessment model), the patient's lifetime risk is 55.8% and her 10 year risk is 36.2%. If a patient has an elevated risk, a more comprehensive evaluation should be considered and/or a referral to a genetic counselor. The [employer], [employer], and NCCN Guidelines advise the consideration of Breast MRI as an adjunct to screening mammography in patients whose Lifetime risk to develop breast cancer is 20% or higher. This exam was interpreted at Station ID: [id number]. NOTE: For mammograms, a report in lay terms will be sent to the patient. Approximately 15% of breast malignancies will not be visualized mammographically. In the management of a palpable breast mass, a negative mammogram must not discourage biopsy of a clinically suspicious lesion. Electronically Signed By: Hector Henriquez M.D. slc/:03/17/2023 10:40:49 ACR BI-RADS Category 0: Incomplete 3340F
--- NOTE | 2023-03-17 08:58 | DI.US.S_ITS ---
LIMITED ULTRASOUND OF RIGHT BREAST: 03/17/2023 CLINICAL: Palpable right breast lump. Comparison is made to exams dated: 03/17/2023 mammogram, 07/15/2022 ultrasound, 07/15/2022 ultrasound, 11/27/2021 ultrasound, 11/27/2021 ultrasound, and 11/27/2021 mammogram - [facility]. Color flow ultrasound of the right breast 9 o'clock region was performed. Ortega scale images of the real-time examination were reviewed. There is a benign 0.7 cm x 0.5 cm x 0.5 cm cyst with a septated internal wall in the right breast at 9 o'clock anterior depth 2 cm from the nipple. This cyst is anechoic. This correlates as palpated. Color flow imaging demonstrates that there is no vascularity present. There also is a benign 1.9 cm oval cyst or mass in the right breast at 9 o'clock middle depth 7 cm from the nipple. This oval cyst displays internal echoes. This abnormality is not significantly changed. IMPRESSION: BENIGN There is no sonographic evidence of malignancy. The 0.7 cm cyst in the right breast at 9 o'clock anterior depth in the region of the palpable abnormality is benign. The 1.9 cm complicated cyst or fibroadenoma in the right breast at 9 o'clock middle depth is not significantly changed and is benign. Exam findings were conveyed to the patient. Patient is advised to monitor for significant change. Clinical follow-up as needed. A 1 year screening mammogram is recommended. This exam was interpreted at Station ID: [id number]. Electronically Signed By: Hector Henriquez M.D. slc/:03/17/2023 10:48:04 letter sent: Normal Exam Ultrasound BI-RADS: 2 Benign
== END ==
PROVIDERS: PCP Family Medicine; Referring Provider Physician Assistant; Visit Provider Physician Assistant
DX: N60.01 Solitary cyst of right breast (principal); N64.4 Mastodynia; N63.20 Unspecified lump in the left breast, unspecified quadrant; R92.2 Inconclusive mammogram
CPT/HCPCS: 76642; 76882; 77066; G0279

== ENCOUNTER → 2023-07-22 10:24 | Outpatient (CLI) | payer OTHER, MEDICARE, SELFPAY ==
[2023-07-22 10:52] LABS: Add Manual Diff / Slide Review NO; Basophils Absolute Auto 200 /uL (0-100); Basophils Percent Auto 3.1 % (0-2); Eosinophils Absolute Auto 300 /uL (0-450); Eosinophils Percent Auto 5.7 % (2-4); Hemoglobin 13.5 g/dL (12.0-16.0); Lymphocytes Absolute Auto 1700 /uL (1100-4500); Mean Corpuscular HGB Conc 33.7 % (30-36); Mean Corpuscular Hemoglobin 29.3 PG (26-34); Mean Corpuscular Volume 87.1 fL (80-100); Monocytes Absolute Auto 500 /uL (0-900); Monocytes Percent Auto 8.1 % (3-14); Neutrophils Absolute Auto 3300 /uL (1500-7000); Neutrophils Percent Auto 55.1 % (50-75); Platelet Count 447 X10^3/uL (150-400); Red Blood Cell Count 4.59 X10^6/uL (4.0-5.2); Red Cell Distribution Width 16.5 % (11.6-14.8)
[2023-07-22 12:22] LABS: HEMOLYSIS < 15 (0-50); Iron 44 ug/dL (37-170)
[2023-07-22 12:35] LABS: Alanine Aminotransferase 19 IU/L (<35); Albumin 4.4 g/dL (3.5-5.0); Albumin Globulin Ratio 1.3 (1.0-2.8); Alkaline Phosphatase 80 U/L (38-126); BUN Creatinine Ratio 12.7 (6-22); Bilirubin Total 0.4 mg/dL (0.2-1.3); Blood Urea Nitrogen 13 mg/dL (7-17); Calcium 9.8 mg/dL (8.4-10.2); Carbon Dioxide 32 mmol/L (22-32); Chloride 98 mmol/L (98-107); Cholesterol 166 mg/dL (140-199); Estimated Glomerular Filt Rate 60 mL/min (>60); Globulin 3.3 g/dL (1.7-4.1); Glucose 111 mg/dL (80-110); HDL Cholesterol 59 mg/dL (40-60); HEMOLYSIS < 15 (0-50); LDL Cholesterol Calculated 73 mg/dL (<100); Potassium 3.2 mmol/L (3.4-5.1); Sodium 139 mmol/L (137-145); Total Protein 7.7 g/dL (6.3-8.2); Triglycerides 170 mg/dL (35-150)
[2023-07-22 12:38] LABS: Percent Iron Saturation 10 % (15-50); Total Iron Binding Capacity 420 ug/dL (265-497); Transferrin 376 mg/dL (206-381)
[2023-07-22 13:25] LABS: Vitamin B12 626 pg/mL (239-931)
[2023-07-22 15:36] LABS: TSH w/ Reflex to FT4 0.47 uIU/mL (0.47-4.68)
[2023-07-23 15:09] LABS: Aspartate Aminotransferase 29 IU/L (14-36)
== END ==
PROVIDERS: PCP Family Medicine; Referring Provider Physician Assistant; Visit Provider Physician Assistant
DX: E78.2 Mixed hyperlipidemia (principal); D50.9 Iron deficiency anemia, unspecified; I10 Essential (primary) hypertension; E03.9 Hypothyroidism, unspecified; R73.09 Other abnormal glucose; R79.89 Other specified abnormal findings of blood chemistry; R53.83 Other fatigue
CPT/HCPCS: 36415; 80053; 80061; 82607; 83540; 83550; 84443; 85025

== ENCOUNTER → 2023-07-27 12:55 | Outpatient (CLI) | payer OTHER, MEDICARE, SELFPAY ==
--- NOTE | 2023-07-27 12:59 | DI.RAD.S_ITS ---
PROCEDURE: FL BARIUM SWALLOW INDICATIONS: hital hernia COMPARISON: [facility], CT, CT ABDOMEN PELVIS WO/W CON, 12/08/2021, 14:03. [facility], CT, CT ANGIO CHEST ABDOMEN PELVIS, 11/23/2019, 18:17. Outside Facility, RG, CT ABDOMEN/PELVIS WITH CONTRAST, 07/02/2019, 14:16. [facility], CR, XR WRIST 3+ VIEWS RIGHT, 10/27/2021, 13:29. FINDINGS: Function: There is mild esophageal dysmotility with disorganized tertiary contractions. Moderately gastroesophageal reflux. There is normal transit of a calibrated barium tablet through the esophagus into the stomach. Morphology: Air-contrast images demonstrate normal mucosal morphology. Single contrast views show no esophageal strictures. There is a large paraesophageal hiatal hernia. There is extrinsic mass effect to the distal esophagus by the large hernia. No esophageal diverticula. Limited images of the stomach demonstrate normal appearance. 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 IMPRESSION: 1. A large paraesophageal hiatal hernia. 2. Mild esophageal dysmotility. 3. Moderately severe gastroesophageal reflux. Dictated by: Escobar Hitchcock M.D. on 07/27/2023 at 17:11 Approved by: Escobar Hitchcock M.D. on 07/28/2023 at 8:09
== END ==
PROVIDERS: PCP Family Medicine; Referring Provider Family Medicine; Visit Provider Family Medicine
DX: K44.9 Diaphragmatic hernia without obstruction or gangrene (principal); K21.9 Gastro-esophageal reflux disease without esophagitis; K22.4 Dyskinesia of esophagus
CPT/HCPCS: 74220

== ENCOUNTER → 2023-07-31 14:11 | Outpatient (CLI) | payer OTHER, MEDICARE, SELFPAY ==
--- NOTE | 2023-07-31 14:14 | DI.RAD.S_ITS ---
PROCEDURE: XR HUMERUS LT 2V INDICATIONS: Ground level fall TECHNIQUE: 2 views of the humerus were acquired. COMPARISON: None. FINDINGS: Bones: No fractures or dislocations. No suspicious bony lesions. Soft tissues: No suspicious soft tissue calcifications. Enteric contrast visualized over the abdomen. IMPRESSION: No acute bony abnormality. Dictated by: Adan Melendrez M.D. on 07/31/2023 at 17:27 Approved by: Adan Melendrez M.D. on 07/31/2023 at 17:28
--- NOTE | 2023-07-31 14:14 | DI.RAD.S_ITS ---
PROCEDURE: XR CLAVICLE LT INDICATIONS: Ground level fall TECHNIQUE: 2 views of the clavicle were acquired. COMPARISON: [facility], CR, XR HUMERUS LT 2V, 07/31/2023, 14:21. FINDINGS: Bones: No fractures or dislocations. No suspicious bony lesions. Soft tissues: No suspicious soft tissue calcifications. IMPRESSION: No acute bony abnormality. Dictated by: Adan Melendrez M.D. on 07/31/2023 at 17:20 Approved by: Adan Melendrez M.D. on 07/31/2023 at 17:23
== END ==
LOC: RAD 14:14
PROVIDERS: PCP Family Medicine; Referring Provider Nurse Practitioner Family; Visit Provider Nurse Practitioner Family
DX: M89.8X1 Other specified disorders of bone, shoulder (principal); M25.512 Pain in left shoulder
CPT/HCPCS: 73000; 73060

== ENCOUNTER → 2023-08-06 14:10 | Outpatient (CLI) | payer OTHER, MEDICARE, SELFPAY ==
[2023-08-06 15:43] LABS: Creatinine Urine Random 207.7 mg/dL
[2023-08-06 15:48] LABS: Microalbumi Creatinin Ratio Ur 8.1 ug/mg CR (<30); Microalbumin Urine Random 1.7 mg/dL (0-1.6)
[2023-08-06 17:06] LABS: HEMOLYSIS < 15 (0-50)
== END ==
LOC: LAB 14:14
PROVIDERS: PCP Family Medicine; Referring Provider Physician Assistant; Visit Provider Physician Assistant
DX: E87.6 Hypokalemia (principal); E78.2 Mixed hyperlipidemia; D50.9 Iron deficiency anemia, unspecified; I10 Essential (primary) hypertension; E03.9 Hypothyroidism, unspecified; R73.09 Other abnormal glucose; R79.89 Other specified abnormal findings of blood chemistry
CPT/HCPCS: 36415; 82043; 82570; 84132

== ENCOUNTER → 2023-12-28 11:58 | Outpatient (CLI) | payer OTHER, MEDICARE, SELFPAY ==
[2023-12-28 15:04] LABS: BUN Creatinine Ratio 13.7 (6-22); Blood Urea Nitrogen 14 mg/dL (7-17); Carbon Dioxide 32 mmol/L (22-32); Chloride 103 mmol/L (98-107); Cholesterol 229 mg/dL (140-199); Estimated Glomerular Filt Rate 60 mL/min (>60); Glucose 90 mg/dL (80-110); HDL Cholesterol 60 mg/dL (40-60); HEMOLYSIS < 15 (0-50); LDL Cholesterol Calculated 141 mg/dL (<100); Potassium 3.9 mmol/L (3.4-5.1); Sodium 139 mmol/L (137-145); Triglycerides 141 mg/dL (35-150)
[2023-12-28 20:00] LABS: Appearance Urine UA CLEAR; Bilirubin Urine UA NEGATIVE (NEGATIVE); Color Urine UA YELLOW; Glucose Urine UA NEGATIVE (Negative); Ketones Urine UA NEGATIVE (NEGATIVE); Leukocyte Esterase Urine UA 1+ (NEGATIVE); Nitrite Urine UA NEGATIVE (Negative); Occult Blood Urine UA NEGATIVE (Negative); Protein Urine UA NEGATIVE (Negative); Urobilinogen Urine UA 0.2 E.U./dL (0.2)
[2023-12-28 20:17] LABS: RBC Urine None Seen (0-5/HPF); Urine Volume 10mL (spun)
[2023-12-28 20:18] LABS: Bacteria Urine Occasional (0-1); Culture Indicated Urine Specimen Cultured; Renal Epithelial Cells Urine 0-1/HPF (0-1/HPF); Squamous Epithelial Cell Urine 5-10 /HPF (0-5/HPF); Transitional Epi Cells Urine 1-5/HPF (0-5/HPF); WBC Urine 5-10/HPF (0-5/HPF)
== END ==
PROVIDERS: PCP Family Medicine; Referring Provider Physician Assistant; Visit Provider Physician Assistant
DX: E78.2 Mixed hyperlipidemia (principal); E87.6 Hypokalemia; R30.0 Dysuria; N39.0 Urinary tract infection, site not specified
CPT/HCPCS: 36415; 80048; 80061; 81001; 87077; 87086; 87147

== ENCOUNTER → 2024-01-18 16:01 | Outpatient (CLI) | payer OTHER, MEDICARE, SELFPAY ==
[2024-01-18 17:37] LABS: HEMOLYSIS < 15 (0-50); Iron 42 ug/dL (37-170)
[2024-01-18 17:49] LABS: Percent Iron Saturation 9 % (15-50); Total Iron Binding Capacity 480 ug/dL (265-497); Transferrin 384 mg/dL (206-381)
[2024-01-18 18:14] LABS: Ferritin 7 ng/mL (11-264)
== END ==
LOC: LAB 16:03
PROVIDERS: PCP Family Medicine; Referring Provider Physician Assistant; Visit Provider Physician Assistant
DX: R53.83 Other fatigue (principal); D50.9 Iron deficiency anemia, unspecified; K44.9 Diaphragmatic hernia without obstruction or gangrene; K21.9 Gastro-esophageal reflux disease without esophagitis
CPT/HCPCS: 36415; 82728; 83540; 83550

== ENCOUNTER → 2024-01-24 09:48 | Outpatient (CLI) | payer OTHER, MEDICARE, SELFPAY ==
--- NOTE | 2024-01-24 22:26 | DI.NM.S_ITS ---
DATE OF SERVICE: 01/24/2024 PROCEDURE: Exercise perfusion study. INDICATIONS: Chest pain, history of atrial fibrillation, hiatal hernia. RADIOPHARMACEUTICAL: 25 mCi technetium-99m Myoview IV was injected at stress and 11.5 mCi technetium-99m Myoview IV was injected at rest. CARDIAC STRESS: The patient underwent exercise perfusion study under the supervision of an attending staff using standard Donnie protocol. She walked on Donnie protocol for 3 minutes and 11 seconds, achieved 4.6 METs of workload, TRIP positive 44%. Resting blood pressure 101/60 and peak blood pressure 140/80. Maximum heart rate 146, which was 96% of target heart rate. Baseline rhythm is sinus. During stress, no convincing ischemic changes seen. No significant arrhythmias seen. The patient developed chest tightness 2 minutes into the exercise, which was mild in intensity and became on a scale of 1 to 10, 6 at maximum exercise, getting worse with deep breathing. Post-exercise, the patient developed a pinching-like chest tightness as well. Symptoms resolved about 7 minutes into the recovery. RAW DATA: There is an increased subdiaphragmatic activity. GATED STUDY: Hyperdynamic LV function with stress LV ejection fraction 91% without any obvious wall motion abnormalities. Resting end- diastolic volume 54 mL. TID ratio 0.45, which is within normal limits. Lung/heart ratio 0.24, which is within normal limits. MYOCARDIAL PERFUSION SCAN: Resting supine images revealed small size, mildly decreased perfusion of inferior wall; however, stress supine and stress prone images revealed normal myocardial perfusion. CONCLUSION: This is a normal myocardial perfusion study. Hyperdynamic LV function. Poor exercise tolerance with enhanced chronotropic response. Normal blood pressure response. Atypical chest discomfort during exercise. No ischemic changes on stress EKG at that time. No significant arrhythmias. Known history of hiatal hernia. As far as perfusion scan is concerned, this is a low-risk myocardial perfusion scan. Correlate clinically. Lucinda Cortez - MIKKI/angie/DARRIAN doc#: [id number]/job#: [id number] dd: 01/24/2024 16:42:00 dt: 01/24/2024 22:04:00 DICTATING MD/COPIES TO: Georgia Rothman MD COPIES MNE: ELVIE;
== END ==
LOC: NUCM 09:51
PROVIDERS: PCP Family Medicine; Referring Provider Physician Assistant; Visit Provider Physician Assistant
DX: R07.89 Other chest pain (principal); E78.2 Mixed hyperlipidemia; K44.9 Diaphragmatic hernia without obstruction or gangrene; K21.9 Gastro-esophageal reflux disease without esophagitis; R06.09 Other forms of dyspnea
CPT/HCPCS: 78452; 93017; A9502

== ENCOUNTER → 2024-03-22 16:05 | Outpatient (CLI) | payer OTHER, MEDICARE, SELFPAY ==
[2024-03-22 18:03] LABS: HEMOLYSIS < 15 (0-50); Iron 107 ug/dL (37-170)
[2024-03-22 18:16] LABS: Percent Iron Saturation 26 % (15-50); Total Iron Binding Capacity 404 ug/dL (265-497); Transferrin 326 mg/dL (206-381)
[2024-03-22 18:41] LABS: Ferritin 12 ng/mL (11-264)
== END ==
PROVIDERS: PCP Family Medicine; Referring Provider Physician Assistant; Visit Provider Physician Assistant
DX: D50.9 Iron deficiency anemia, unspecified (principal)
CPT/HCPCS: 36415; 82728; 83540; 83550

== ENCOUNTER 2024-04-13 11:58 | Emergency (ER) | payer OTHER, MEDICARE, SELFPAY ==
[2024-04-13] VITALS (14 sets, daily range): BP systolic 126–166; BP diastolic 59–84; PULSE 77–96; RESP 8–24; TEMP 36.9; O2SAT 93–779; BMI 31.6
--- NOTE | 2024-04-13 12:11 | EKG_ITS ---
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
--- NOTE | 2024-04-13 12:11 | DI.RAD.S_ITS ---
PROCEDURE: XR CHEST 1V INDICATIONS: chest pain TECHNIQUE: One view of the chest was acquired. COMPARISON: [facility], CR, XR CHEST 1V, 04/15/2021, 3:51. FINDINGS: Surgical changes and devices: Upper abdominal embolization coils and cholecystectomy clips. Bilateral breast clips. Lungs and pleura: Lungs are clear. No pleural effusions or pneumothorax. Mediastinum: Mediastinal contours appear normal. Heart size is normal. Moderately large hiatal hernia. Bones and chest wall: No suspicious bony lesions. Overlying soft tissues appear unremarkable. IMPRESSION: Moderately large hiatal hernia. No evidence acute pulmonary process. Dictated by: José Manuel Barcenas M.D. on 04/13/2024 at 12:49 Approved by: José Manuel Barcenas M.D. on 04/13/2024 at 12:50
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
[2024-04-13 12:43] LABS: Add Manual Diff / Slide Review NO; Basophils Absolute Auto 100 /uL (0-100); Basophils Percent Auto 0.8 % (0-2); Eosinophils Absolute Auto 100 /uL (0-450); Eosinophils Percent Auto 1.4 % (2-4); Hematocrit 44.2 % (36-46); Hemoglobin 14.9 g/dL (12.0-16.0); Lymphocytes Absolute Auto 1100 /uL (1100-4500); Lymphocytes Percent Auto 14.9 % (25-40); Mean Corpuscular HGB Conc 33.8 % (30-36); Mean Corpuscular Volume 88.8 fL (80-100); Monocytes Absolute Auto 600 /uL (0-900); Monocytes Percent Auto 8.3 % (3-14); Neutrophils Absolute Auto 5600 /uL (1500-7000); Neutrophils Percent Auto 74.6 % (50-75); Platelet Count 322 X10^3/uL (150-400); Red Blood Cell Count 4.97 X10^6/uL (4.0-5.2); Red Cell Distribution Width 17.4 % (11.6-14.8); White Blood Cell Count 7.5 X10^3/uL (4.5-11.0)
[2024-04-13] MEDS: METOCLOPRAMIDE 10 MG/2 ML INJ IV (12:44)
[2024-04-13] MEDS: SODIUM CHLORIDE 0.9% 1,000 ML 1000 ML IV ×2 (12:44→15:31)
[2024-04-13] MEDS: PANTOPRAZOLE 40 MG VIAL IV (12:45)
[2024-04-13 12:50] LABS: Prothrombin Time 11.5 SECONDS (9.4-12.5)
[2024-04-13 12:52] LABS: PTT Partial Thromboplastin Tim 35 SECONDS (25.1-36.5)
[2024-04-13 12:57] LABS: Alanine Aminotransferase 22 IU/L (<35); Albumin 4.6 g/dL (3.5-5.0); Albumin Globulin Ratio 1.5 (1.0-2.8); Alkaline Phosphatase 101 U/L (38-126); Aspartate Aminotransferase 30 IU/L (14-36); BUN Creatinine Ratio 12.4 (6-22); Bilirubin Total 0.9 mg/dL (0.2-1.3); Blood Urea Nitrogen 25 mg/dL (7-17); Calcium 9.5 mg/dL (8.4-10.2); Carbon Dioxide 23 mmol/L (22-32); Chloride 99 mmol/L (98-107); Creatine Kinase 36 U/L (30-135); Estimated Glomerular Filt Rate 26 mL/min (>60); Glucose 100 mg/dL (80-110); HEMOLYSIS 22 (0-50); Lactate (Lactic Acid) 1.2 mmol/L (0.7-2.1); Lipase 121 U/L (23-300); Potassium 3.2 mmol/L (3.4-5.1); Sodium 135 mmol/L (137-145); Total Protein 7.6 g/dL (6.3-8.2)
--- NOTE | 2024-04-13 12:58 | DI.CT.S_ITS ---
PROCEDURE: CT CHEST ABD PEL WO CON INDICATIONS: hiatal hernia, vomiting TECHNIQUE: After the administration of oral contrast, 5 mm thick sections acquired from the lung apices to the symphysis pubis. 5 mm thick coronal and sagittal reformats acquired, with additional 7 mm coronal MIP reformats through the lungs. For radiation dose reduction, the following was used: automated exposure control, adjustment of mA and/or kV according to patient size. COMPARISON: [facility], CT, CT ANGIO CHEST PE PROTOCOL, 03/05/2021, 16:49. [facility], CT, CT ABDOMEN PELVIS WO/W CON, 12/08/2021, 14:03. FINDINGS: Image quality: Diagnostic. CHEST: Lower Neck: No enlarged lymph nodes. Thyroid: Atrophic, otherwise within normal limits. Axillae: No enlarged lymph nodes. Chest Wall: Nodule in the right breast measuring 1.6 centimeters (2/29) is stable compared to 03/05/2021.. Bones: Unremarkable. Lungs and Pleura: No pneumothorax or pleural effusions. Multiple scattered solid and ground-glass nodules measuring 5 millimeters or less. For example a 5 millimeter ground-glass nodule in the lingula (5/184). A 3 millimeters solid nodule in the left lower lobe (5/188). Heart: Heart size is normal. No pericardial effusion. Thoracic Vessels: The aorta and pulmonary arteries demonstrate normal size. Mediastinum and Basia: No enlarged lymph nodes. Esophagus: No wall thickening. Moderate to large hiatal hernia is similar to prior. ABDOMEN: Liver: No solid mass. Gallbladder: Surgically absent. Biliary ducts: No biliary dilation. Pancreas: No ductal dilation. Spleen: Size is within normal limits. Adrenal Glands: No adrenal nodules. Kidneys and Ureters: No hydronephrosis. No solid mass. No complex renal cystic lesion which requires follow up. Cortical scar in the lateral aspect of the left kidney is redemonstrated. Stomach and Bowel: Normal colonic caliber, without significant wall thickening. Diverticulosis without evidence of acute diverticulitis. Peritoneum: Epigastric surgical clips are noted. No abnormal intraperitoneal fluid. No free air. Ventral Wall: No hernia. Abdominal Nodes: No retroperitoneal or mesenteric adenopathy by size criteria. Vessels: Aorta and inferior vena cava are normal in size. Atherosclerotic vascular calcifications. PELVIS: Pelvic Organs: Unremarkable. Bladder: Unremarkable. Pelvic Nodes: No enlarged lymph nodes. Miscellaneous: No inguinal hernias are seen. Bones: No aggressive osseous abnormality. Right sacroiliac joint fixation. Old fracture deformity of the sternum. Degenerative changes of spine. IMPRESSION: No acute findings within the chest, abdomen or pelvis. Redemonstration of moderate to large hiatal hernia which appears similar in appearance to prior. Multiple scattered solid and ground-glass nodules measuring 5 millimeters or less. Findings are nonspecific. Consider follow-up CT scan in 1 year per Fleischner criteria. Nodule in the right breast measuring 1.6 centimeters is stable, correlate with prior dedicated breast imaging. Diverticulosis without evidence of acute diverticulitis. Dictated by: Luke Jo M.D. on 04/13/2024 at 14:36 Approved by: Luke Jo M.D. on 04/13/2024 at 14:56
[2024-04-13 13:09] LABS: NT-proBNP (BNP-Adult 18+) < 20 pg/mL (<125); Troponin I < 0.012 ng/mL (0.01-0.034)
[2024-04-13 17:27] LABS: Blood Urea Nitrogen 21 mg/dL (7-17); Calcium 8.3 mg/dL (8.4-10.2); Carbon Dioxide 24 mmol/L (22-32); Chloride 101 mmol/L (98-107); Estimated Glomerular Filt Rate 31 mL/min (>60); Glucose 78 mg/dL (80-110); HEMOLYSIS 28 (0-50); Sodium 136 mmol/L (137-145)
== END 2024-04-13 18:26 | disposition home or self-care (01) ==
PROVIDERS: Emergency Provider Emergency Medicine; PCP Family Medicine
DX: E86.0 Dehydration (principal); R11.2 Nausea with vomiting, unspecified; R07.9 Chest pain, unspecified; K44.9 Diaphragmatic hernia without obstruction or gangrene; R50.9 Fever, unspecified
CPT/HCPCS: 71045; 71250; 74176; 80048; 80053; 82550; 83605; 83690; 83735; 83880; 84484; 85025; 85610; 85730; 87077; 87086; 87147; 93005; 93010; 96361; 96374; 96375; 99284; J2470; J2765

== ENCOUNTER → 2024-04-13 12:21 | Outpatient (CLI) | payer OTHER, MEDICARE, SELFPAY | PROVIDERS: PCP Family Medicine; Visit Provider Physician Assistant | DX: R50.9 Fever, unspecified (principal) | CPT/HCPCS: 87086 ==

== ENCOUNTER → 2024-04-26 12:59 | Outpatient (CLI) | payer OTHER, MEDICARE, SELFPAY ==
[2024-04-26 14:31] LABS: BUN Creatinine Ratio 13.6 (6-22); Blood Urea Nitrogen 14 mg/dL (7-17); Carbon Dioxide 30 mmol/L (22-32); Chloride 98 mmol/L (98-107); Estimated Glomerular Filt Rate 59 mL/min (>60); Glucose 135 mg/dL (80-110); HEMOLYSIS < 15 (0-50); Sodium 135 mmol/L (137-145)
== END ==
PROVIDERS: PCP Family Medicine; Referring Provider Physician Assistant; Visit Provider Physician Assistant
DX: E87.6 Hypokalemia (principal)
CPT/HCPCS: 80048

== ENCOUNTER → 2024-06-23 16:31 | Outpatient (CLI) | payer OTHER, MEDICARE, SELFPAY ==
--- NOTE | 2024-06-23 16:34 | DI.RAD.S_ITS ---
PROCEDURE: XR SHOULDER LT MIN 2V INDICATIONS: Left shoulder pain; possible OA or tendinitis TECHNIQUE: 3 views of the shoulder were acquired. COMPARISON: None. FINDINGS: Bones: No fractures or dislocations. No suspicious bony lesions. Visualized ribs appear intact. Mild degenerative changes of the left acromioclavicular joint. Coracoclavicular and acromioclavicular intervals are maintained. Soft tissues: No suspicious soft tissue calcifications. IMPRESSION: No acute bony abnormality. Mild left acromioclavicular osteoarthrosis. Dictated by: Rock Wills M.D. on 06/23/2024 at 23:28 Approved by: Rock Wills M.D. on 06/23/2024 at 23:29
== END ==
PROVIDERS: PCP Family Medicine; Referring Provider Physician Assistant; Visit Provider Physician Assistant
DX: M19.012 Primary osteoarthritis, left shoulder (principal); M25.512 Pain in left shoulder
CPT/HCPCS: 73030

== ENCOUNTER 2024-06-30 17:59 | Emergency (ER) | payer OTHER, MEDICARE, SELFPAY ==
[2024-06-30 18:25] VITALS: BP 160/81; PULSE 102; RESP 16; TEMP 36.7; O2SAT 96; BMI 32.2
--- NOTE | 2024-06-30 18:50 | DI.CT.S_ITS ---
PROCEDURE: CT ANGIO ABD/PEL GI BLEED INDICATIONS: GI bleeding protocol TECHNIQUE: After the administration of intravenous contrast, 2.5 mm thick sections acquired from the diaphragm to the symphysis. 10 mm maximum-intensity projection (MIP) reformats were then acquired. For radiation dose reduction, the following was used: automated exposure control. COMPARISON: US, US BREAST RT LIMITED, 03/17/2023, 9:47. [facility], CT, CT CHEST ABD PEL WO CON, 04/13/2024, 14:06. FINDINGS: Image Quality: Diagnostic. Abdominal aorta: No aortic aneurysm or evidence of acute aortic syndrome. Mesenteric arteries: Patent without hemodynamically significant stenosis. Renal arteries: Patent without hemodynamically significant stenosis. OTHER: Lower Chest: Right lateral breast nodule measuring 2.1 cm, (/), unchanged. Previously characterized as a complicated cyst or fibroadenoma and benign. Moderate to large hiatal hernia. Liver: No solid mass. Gallbladder: Absent. Biliary ducts: No biliary dilation. Pancreas: No ductal dilation. Spleen: Size is within normal limits. Adrenal Glands: No adrenal nodules. Kidneys and Ureters: No hydronephrosis. No kidney stones. Postsurgical change at the lateral left kidney. No solid mass. No complex renal cystic lesion which requires follow up. Stomach and Bowel: Diverticulosis. No diverticulitis. No active extravasation. The appendix is not seen. No small bowel obstruction. Moderate to large hiatal hernia. Peritoneum: No abnormal intraperitoneal fluid. No free air. Ventral Wall: No hernia. Abdominal Nodes: No retroperitoneal or mesenteric adenopathy by size criteria. Vessels: A vascular coils in the region of the hepatic artery. PELVIS: Pelvic Organs: Uterus is absent. Bladder: No bladder stone. No thickening. Pelvic Nodes: No enlarged lymph nodes. Miscellaneous: No inguinal hernias are seen. Bones: No aggressive osseous abnormality. Screw fixation at the right SI joint. Partial ankylosis at the left SI joint. L4 intraosseous hemangioma. IMPRESSION: 1. No active extravasation. No acute inflammatory process is seen. No free fluid. 2. No acute aortic syndrome. Vascular coils near the hepatic artery. 3. No kidney stones. No hydronephrosis. Dictated by: Hector Henriquez M.D. on 06/30/2024 at 20:43 Approved by: Hector Henriquez M.D. on 06/30/2024 at 20:59
[2024-06-30 19:12] LABS: Add Manual Diff / Slide Review NO; Basophils Absolute Auto 100 /uL (0-100); Eosinophils Absolute Auto 300 /uL (0-450); Eosinophils Percent Auto 3.3 % (2-4); Hematocrit 42.7 % (36-46); Hemoglobin 14.5 g/dL (12.0-16.0); Lymphocytes Absolute Auto 1900 /uL (1100-4500); Lymphocytes Percent Auto 21.3 % (25-40); Mean Corpuscular Hemoglobin 32.1 PG (26-34); Mean Corpuscular Volume 94.4 fL (80-100); Monocytes Absolute Auto 700 /uL (0-900); Monocytes Percent Auto 8.2 % (3-14); Neutrophils Absolute Auto 6000 /uL (1500-7000); Neutrophils Percent Auto 66.2 % (50-75); Platelet Count 339 X10^3/uL (150-400); Red Blood Cell Count 4.52 X10^6/uL (4.0-5.2); Red Cell Distribution Width 13.3 % (11.6-14.8)
[2024-06-30 19:23] LABS: Alanine Aminotransferase 26 IU/L (<35); Albumin Globulin Ratio 1.3 (1.0-2.8); Alkaline Phosphatase 80 U/L (38-126); Aspartate Aminotransferase 31 IU/L (14-36); BUN Creatinine Ratio 26.8 (6-22); Bilirubin Total 0.3 mg/dL (0.2-1.3); Blood Urea Nitrogen 26 mg/dL (7-17); Calcium 9.1 mg/dL (8.4-10.2); Carbon Dioxide 27 mmol/L (22-32); Chloride 101 mmol/L (98-107); Estimated Glomerular Filt Rate > 60 mL/min (>60); Glucose 122 mg/dL (80-110); HEMOLYSIS < 15 (0-50); Lipase 102 U/L (23-300); Potassium 3.3 mmol/L (3.4-5.1); Sodium 133 mmol/L (137-145)
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
[2024-06-30 20:42] VITALS: BP 139/78; PULSE 94; RESP 18; O2SAT 97
[2024-06-30] MEDS: POTASSIUM CHLORIDE 20 MEQ/15 ML UDC 40 MEQ PO (21:24)
[2024-06-30 21:31] LABS: Hematocrit 41.2 % (36-46); Hemoglobin 13.9 g/dL (12.0-16.0)
[2024-06-30 21:56] VITALS: BP 141/71; PULSE 90; RESP 16; O2SAT 95
== END 2024-06-30 22:06 | disposition home or self-care (01) ==
PROVIDERS: Emergency Provider Emergency Medicine; PCP Family Medicine
DX: K92.2 Gastrointestinal hemorrhage, unspecified (principal); E87.6 Hypokalemia; K21.9 Gastro-esophageal reflux disease without esophagitis
CPT/HCPCS: 74174; 80053; 81003; 83690; 85014; 85018; 85025; 99284; Q9967

== ENCOUNTER → 2024-09-13 15:06 | Outpatient (CLI) | payer OTHER, MEDICARE, SELFPAY ==
[2024-09-13 16:58] LABS: Thyroid Stimulating Hormone 1.81 uIU/mL (0.47-4.68)
== END ==
LOC: LAB 15:08
PROVIDERS: PCP Family Medicine; Referring Provider Family Medicine; Visit Provider Family Medicine
DX: E03.9 Hypothyroidism, unspecified (principal)
CPT/HCPCS: 36415; 84443

== ENCOUNTER → 2024-12-20 14:54 | Outpatient (CLI) | payer OTHER, MEDICARE, SELFPAY | PROVIDERS: PCP Family Medicine; Visit Provider Physician Assistant | DX: N89.8 Other specified noninflammatory disorders of vagina (principal); R39.15 Urgency of urination | CPT/HCPCS: 87086 ==

== ENCOUNTER → 2024-12-20 15:18 | Outpatient (CLI) | payer OTHER, MEDICARE, SELFPAY ==
--- NOTE | 2024-12-20 15:22 | DI.RAD.S_ITS ---
PROCEDURE: XR HIP W PEL IF DONE RT 2V INDICATIONS: pain/locking. hx with fusion TECHNIQUE: AP pelvis with lateral view(s) of the right). COMPARISON: None. FINDINGS: Bones: Mild chronic appearing erosive changes symphysis pubis noted SI and hip joints: Moderate narrowing of the medial aspect of both hips appreciated. There are 2 pins extending across the right SI joint os densely treating mild diastasis. The left SI joint shows mild degeneration. Moderate L5-S1 degenerative disc facet disease Soft tissues: No soft tissue swelling, calcification or mass. IMPRESSION: Moderate narrowing medial aspect of both ankle mortise would be atypical for degeneration. This could indicate bilateral inflammatory arthritis Chronic appearing erosion of the symphysis pubis. Consider pelvic CT Dictated by: Jai Lund M.D. on 12/21/2024 at 13:03 Approved by: Jai Lund M.D. on 12/21/2024 at 13:05
[2024-12-20 16:03] LABS: Add Manual Diff / Slide Review NO; Basophils Absolute Auto 100 /uL (0-100); Basophils Percent Auto 1.2 % (0-2); Eosinophils Absolute Auto 300 /uL (0-450); Eosinophils Percent Auto 3.7 % (2-4); Hematocrit 43.7 % (36-46); Hemoglobin 14.8 g/dL (12.0-16.0); Lymphocytes Absolute Auto 1600 /uL (1100-4500); Lymphocytes Percent Auto 22.6 % (25-40); Mean Corpuscular HGB Conc 33.8 % (30-36); Mean Corpuscular Hemoglobin 31.1 PG (26-34); Mean Corpuscular Volume 92.2 fL (80-100); Monocytes Absolute Auto 900 /uL (0-900); Monocytes Percent Auto 12.1 % (3-14); Neutrophils Absolute Auto 4300 /uL (1500-7000); Neutrophils Percent Auto 60.4 % (50-75); Platelet Count 362 X10^3/uL (150-400); Red Blood Cell Count 4.75 X10^6/uL (4.0-5.2); Red Cell Distribution Width 13.8 % (11.6-14.8)
[2024-12-20 16:23] LABS: Alanine Aminotransferase 20 IU/L (<35); Albumin 4.3 g/dL (3.5-5.0); Albumin Globulin Ratio 1.7 (1.0-2.8); Alkaline Phosphatase 83 U/L (38-126); Aspartate Aminotransferase 27 IU/L (14-36); Bilirubin Total 0.4 mg/dL (0.2-1.3); Blood Urea Nitrogen 9 mg/dL (7-17); Calcium 9.4 mg/dL (8.4-10.2); Carbon Dioxide 24 mmol/L (22-32); Chloride 102 mmol/L (98-107); Estimated Glomerular Filt Rate > 60 mL/min (>60); Globulin 2.5 g/dL (1.7-4.1); Glucose 113 mg/dL (70-99); HEMOLYSIS < 15 (0-50); Magnesium 1.9 mg/dL (1.6-2.3); Potassium 3.7 mmol/L (3.4-5.1); Sodium 135 mmol/L (137-145); Total Protein 6.8 g/dL (6.3-8.2)
[2024-12-20 17:14] LABS: Vitamin B12 589 pg/mL (239-931)
== END ==
PROVIDERS: PCP Family Medicine; Referring Provider Physician Assistant; Visit Provider Physician Assistant
DX: M53.3 Sacrococcygeal disorders, not elsewhere classified (principal); M25.551 Pain in right hip; M79.10 Myalgia, unspecified site; N89.8 Other specified noninflammatory disorders of vagina; M85.88 Other specified disorders of bone density and structure, other site; R39.15 Urgency of urination; Z53.20 Procedure and treatment not carried out because of patient's decision for unspecified reasons
CPT/HCPCS: 36415; 73502; 80053; 82607; 83735; 85025; 87077; 87086; 87147; 87210

== ENCOUNTER → 2024-12-26 14:29 | Outpatient (CLI) | payer OTHER, MEDICARE, SELFPAY ==
--- NOTE | 2024-12-26 16:19 | DI.CT.S_ITS ---
PROCEDURE: CT PELVIS W CON INDICATIONS: erosion to symphysis pubis on xray, Right groin pain/hip TECHNIQUE: After the administration of intravenous contrast, 5 mm thick sections acquired from the iliac crests to the symphysis. 5 mm coronal and sagittal reformats were acquired. For radiation dose reduction, the following was used: automated exposure control, adjustment of mA and/or kV according to patient size. COMPARISON: None. FINDINGS: Image quality: Excellent Bones: Erosion and subchondral sclerosis of bilateral sacroiliac joint, raising concern for sequela of prior sacroiliitis. Screw fixation of the right sacroiliac joint. No hardware complication. The sacrum is intact. Chronic deformity of bilateral pubic body with diminutive appearance, of unclear etiology and may be posttraumatic. No erosion about the pubic symphysis. Mild degenerative changes of bilateral hips with axial joint space narrowing. No acute fracture or dislocation of either hip. No avascular necrosis of either femoral head. Soft tissue findings: The bilateral common and external iliac arteries are widely patent. The bladder is decompressed. Wall thickening of the bladder with surrounding fat stranding, raising concern for cystitis The uterus is not visualized, likely surgically absent. The left ovary is unremarkable. Small cyst in the right ovary. Sigmoid colon diverticulosis. No pelvic lymphadenopathy. IMPRESSION: 1. Screw fixation of the right sacroiliac joint. No hardware complication. Findings suggestive of sequela of prior bilateral sacroiliitis. 2. Chronic deformity of bilateral pubic body with diminutive appearance, of unclear etiology and may be posttraumatic. No associated erosion. 3. Findings concerning for cystitis. Recommend correlation with urinalysis. Dictated by: Donna Zapata M.D. on 12/27/2024 at 16:42 Approved by: Donna Zapata M.D. on 12/27/2024 at 16:50
== END ==
PROVIDERS: PCP Family Medicine; Referring Provider Family Medicine; Visit Provider Physician Assistant
DX: R93.89 Abnormal findings on diagnostic imaging of other specified body structures (principal); M53.3 Sacrococcygeal disorders, not elsewhere classified; M95.5 Acquired deformity of pelvis; M25.551 Pain in right hip; K57.30 Diverticulosis of large intestine without perforation or abscess without bleeding; N83.201 Unspecified ovarian cyst, right side; Z96.698 Presence of other orthopedic joint implants
CPT/HCPCS: 72193; Q9967

== ENCOUNTER → 2025-07-05 14:34 | Outpatient (CLI) | payer OTHER, MEDICARE, SELFPAY ==
[2025-07-05 15:58] LABS: Hemoglobin A1C% w Est Avg Glu 5.2 % (4.0-6.0)
[2025-07-05 16:40] LABS: HEMOLYSIS < 15 (0-50); Iron 102 ug/dL (37-170)
[2025-07-05 16:41] LABS: Alanine Aminotransferase 17 IU/L (<35); Albumin 4.1 g/dL (3.5-5.0); Albumin Globulin Ratio 1.5 (1.0-2.8); Alkaline Phosphatase 66 U/L (38-126); Blood Urea Nitrogen 15 mg/dL (7-17); Calcium 9.4 mg/dL (8.4-10.2); Carbon Dioxide 30 mmol/L (22-32); Chloride 99 mmol/L (98-107); Estimated Glomerular Filt Rate > 60 mL/min (>60); Globulin 2.8 g/dL (1.7-4.1); Glucose 52 mg/dL (70-99); HEMOLYSIS < 15 (0-50); Potassium 3.6 mmol/L (3.4-5.1); Sodium 139 mmol/L (137-145); Total Protein 6.9 g/dL (6.3-8.2)
[2025-07-05 16:53] LABS: Percent Iron Saturation 28 % (15-50); Total Iron Binding Capacity 361 ug/dL (265-497); Transferrin 302 mg/dL (206-381)
[2025-07-05 17:13] LABS: TSH w/ Reflex to FT4 0.86 uIU/mL (0.47-4.68)
[2025-07-05 17:16] LABS: Ferritin 18 ng/mL (11-264)
[2025-07-05 17:31] LABS: Vitamin B12 797 pg/mL (239-931)
== END ==
PROVIDERS: PCP Family Medicine; Referring Provider Physician Assistant; Visit Provider Physician Assistant
DX: R73.09 Other abnormal glucose (principal); E03.9 Hypothyroidism, unspecified; I10 Essential (primary) hypertension; D50.9 Iron deficiency anemia, unspecified; E53.8 Deficiency of other specified B group vitamins
CPT/HCPCS: 36415; 80053; 82607; 82728; 83036; 83540; 83550; 84443